=== PATIENT | female | born 1945 | race Caucasian/White ===

== ENCOUNTER → 2020-05-06 10:42 | Outpatient (BNVA) | payer OTHER, SELFPAY | PROVIDERS: PCP Internal Medicine; Referring Provider Internal Medicine; Visit Provider Nurse Practitioner Family | DX: Z76.89 Persons encountering health services in other specified circumstances (principal) ==

== ENCOUNTER → 2020-05-23 11:09 | Outpatient (REF) | payer OTHER, SELFPAY ==
--- NOTE | 2020-05-23 11:20 | CA_ITS ---
Transthoracic Echocardiogram Patient (Last, First, Middle): Annmarie Randhawa, Gender: Female Date of : 1945 Age: 74 Procedure Date: 05/23/2020 Procedure Type: Transthoracic Echocardiogram Location: OP Height: 154.94 cm Weight: 75.75 kg BSA: 1.75 m2 Heart Rate: bpm BP: 120 / 75 mmHg Veneer Patcher: AMBER Referring MD: Elenita Craft DEVELOPMENT MECHANICCuong Symptoms: R01.1 Cardiac murmur, l10 Essential hypertension Study Quality: Fair ECG Rhythm: Sinus Conclusions: - The left ventricular systolic function is normal. The visually estimated ejection fraction is between 60-65%. - There is mild septal asymmetric hypertrophy. - No obvious valvular pathology seen on this study. Findings Left Ventricle Normal left ventricular cavity size. The left ventricular systolic function is normal. The visually estimated ejection fraction is between 60-65%. There is no evidence of regional wall motion abnormalities. E/E prime ratio is between 8 and 15 consistent with indeterminate filling pressures. Evidence suggests grade I (mild) diastolic dysfunction. There is mild septal asymmetric hypertrophy. Right Ventricle Normal right ventricular cavity size and systolic function. Atria The left atrium is normal in size. The right atrium is normal in size. Aortic Valve There is a normal trileaflet aortic valve. There is mild calcification of the aortic valve. There is no aortic valve stenosis. There is trace (trivial) aortic valve regurgitation. Mitral Valve The mitral valve appears normal. There is trace mitral valve regurgitation. There is no mitral valve stenosis. Pulmonic Valve The pulmonic valve was not well visualized. Tricuspid Valve Normal tricuspid valve structure. There is mild tricuspid valve regurgitation. The pulmonary artery systolic pressure is normal. Great Vessels The aortic annulus, sinuses of valsalva, and asc aorta are normal in size. Venous The inferior vena cava is normal in size and collapses greater than 50% with inspiration. Pericardium/Pleural There is no evidence of pericardial effusion. Prior Study Comparison No significant change compared to prior study dated: 10/12/2018. Recommendations, Care & Conclusions No obvious valvular pathology seen on this study. Measurements 2D Linear Measurements IVSd: 1.04 0.6-0.9/0.6-1.0 cm LVIDd: 3.95 3.9-5.3/4.2-5.9 cm LVIDd Index: 1.47 2.4-3.2/2.2-3.1 cm/m2 LVIDs: 2.40 2.0-3.6 cm LVPWd: 0.98 0.7-1.1 cm Ao Root: 3.00 2.1-3.5 cm LA Diam: 2.70 2.7-3.8/3.0-4.0 cm LAIDs Index: 1.01 1.5-2.3 cm/m2 LV Mass: 156.97 67-162/88-224 g LV Mass Index: 58.57 43-95/49-115 g/m2 LVOT Diam: 2.10 3.0+(-)1.3 cm 2D Systolic Function EF 4C: 79.30 >55% Mitral Valve MV Pk E: 0.80 MV PK A: 0.65 MV Decel Time: 227.00 E/A: 1.20 E'Lateral: 8.05 E'Medial: 6.85 E/E' Med: 11.60 E/E' Lat: 9.90 PHT: 67.00 MVA PHT: 3.28 Decel Bamberg: 3.50 Aortic Valve AoV Pk Red: 1.55 AoV Pk Grad: 10.00 LVOT LVOT Pk Red: 1.54 LVOT Mn Red: 1.10 LVOT VTI: 0.34 LVOT Pk Grad: 9.00 LVOT Mn Grad: 5.00 LVOT Diam: 2.10 LVOT Area: 3.46 Diastolic Function MV Pk E: 0.80 MV Pk A: 0.65 E/A: 1.20 E'Medial: 6.85 E/E' Med: 11.60 E' Laterial: 8.05 E/E' Lat: 9.90 Tricuspid Valve TR Pk Red: 2.27 TR Pk Grad: 21.00 RA Press: 3.00 RVSP: 24.00 Great Vessels Aorta Ao Root-2D: 3.00 2.0-3.7 cm Ao Asc: 3.30 2.1-3.4 cm Ao Arch: 2.20 Updated in Other Vendor System with Status of Final Armani White MD electronically signed on 05/25/2020 10:53:09 AM with status of Final
== END ==
LOC: HO.CARD 11:09
PROVIDERS: PCP Internal Medicine; Visit Provider Nurse Practitioner Family
DX: R01.1 Cardiac murmur, unspecified (principal); I10 Essential (primary) hypertension; I25.10 Atherosclerotic heart disease of native coronary artery without angina pectoris
CPT/HCPCS: 93306

== ENCOUNTER → 2021-05-21 09:10 | Outpatient (BNVA) | payer OTHER, SELFPAY | PROVIDERS: PCP Internal Medicine; Referring Provider Internal Medicine; Visit Provider Internal Medicine Cardiovascular Disease ==

== ENCOUNTER → 2021-06-10 11:12 | Outpatient (REF) | payer OTHER, SELFPAY ==
--- NOTE | 2021-06-10 11:16 | HM_ITS ---
Conclusion: 1. Patient was monitored for total period of 12 days and 4 hours 2. Baseline rhythm was normal sinus rhythm with average heart of 76 beats per minute 3. No significant pauses or bradycardia noted 4. One 6 beat run of nonsustained VT noted 5. Twelve short runs of supraventricular ectopic consistent with SVT longest 12 beats 6. Total of 514 PACs accounting for 0.04% total burden account for rare PACs 7. Three total patient events 1 of which correlated with isolated PVC MTDD
== END ==
LOC: HO.CARD 11:12
PROVIDERS: Visit Provider Internal Medicine Cardiovascular Disease
DX: R00.2 Palpitations (principal)
CPT/HCPCS: 93246

== ENCOUNTER → 2021-09-25 10:45 | Outpatient (BNVA) | payer OTHER, SELFPAY | PROVIDERS: PCP Internal Medicine; Visit Provider Nurse Practitioner Family ==

== ENCOUNTER → 2022-05-28 12:43 | Outpatient (BNVA) | payer OTHER, SELFPAY | PROVIDERS: PCP Internal Medicine; Referring Provider Internal Medicine; Visit Provider Internal Medicine Cardiovascular Disease | DX: I25.10 Atherosclerotic heart disease of native coronary artery without angina pectoris (principal); I49.1 Atrial premature depolarization | CPT/HCPCS: 93005 ==

== ENCOUNTER → 2022-09-28 10:49 | Outpatient (BNVA) | payer OTHER, SELFPAY | PROVIDERS: PCP Internal Medicine; Visit Provider Nurse Practitioner Family | DX: Z13.89 Encounter for screening for other disorder (principal) ==

== ENCOUNTER 2023-03-29 14:22 | Outpatient (AMB) | payer OTHER, SELFPAY ==
--- NOTE | 2023-03-29 14:24 | A.OFFVIS_ITS ---
Intake Vital Signs 03/29/23 14:25 Height 5 ft Weight 165 lb BMI 32.2 BP 102/58 L Blood Pressure Location Rt brachial Position Sitting Pulse 81 Pulse Source Pulse Oximeter Pulse Oximetry (%) 98 Oxygen Delivery Method Room Air Intake Visit Reasons: 6m follow up movement disorder - Confirmed Intake Note: Patient presents for 6 month follow up. Patient states A lot more dizziness, about a month ago I started walking and fainted and fell on the floor, I'm having some shakiness on left hand and the right it's starting to do the same. Allergies Sulfa (Sulfonamide Antibiotics) Allergy (Unknown, Verified 09/28/22 11:08) vomiting sulfamethoxazole [From Bactrim] Allergy (Unknown, Verified 09/28/22 11:08) Unknown trimethoprim [From Bactrim] Allergy (Unknown, Verified 09/28/22 11:08) Unknown HPI HPI Comments History of Present Illness Details 77-yr-old female presents for f/u visit, pt is accompanied by her , Mari. Pt has been having more dizziness- an off-balance feeling especially triggered by a qucik turn/movement/position change. She had a fall- possibly passed out but fell r/t dizziness- early in the am. By the time the printer slotter feeder came she felt ok. She called her PCP, who suggested she was dehydrated, but pt does not think. Pt denies recent ear pain, headaches, fevers. Her left eye is more bothersome- has f/u appt w/ her service observer. Was having dry eyes- but eye gtts were helpful. Her sense of smell and taste is not great- has some . She has been noticing some swallowing difficulty when eating. Still has the LUE tremor. The right hand is now shaking some. She is noticing worsening left 3rd finger posturing and some lower leg spasms/cramps (forgets which leg). 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 Denies parasomnias. [facility] Medical History HLD (hyperlipidemia) HTN (hypertension) Murmur Nonobstructive atherosclerosis of coronary artery (~09/2017) Surgical History History of right hip replacement (~11/2019) Hx of cardiac cath Hx of eye surgery Hx of hysterectomy Hx of pelvic surgery Family History (Updated 03/29/23 @ 14:33 by MAGNOLIA Mcarthur) Father CVD (cardiovascular disease) Mother No problems noted. Family/Other CVD (cardiovascular disease) Afib Brother Tumor of tongue Social History Household Members: Spouse Housing: House Alcohol intake: former Patient Tobacco Use Status: Former Tobacco user Review of Systems Const All systems reviewed & are unremarkable except as noted in HPI and below Physical Exam Vital Signs: Last Vital Signs Pulse 81 03/29/23 14:25 BP 102/58 L 03/29/23 14:25 Pulse Ox 98 03/29/23 14:25 Oxygen Delivery Method Room Air 03/29/23 14:25 BMI result Body Mass Index 32.2 Const General: cooperative and no acute distress Resp Effort & Inspection: normal respiratory effort and able to speak in complete sentences Neuro Other: Mild dysconjucate gaze. Mild left lower facial droop- chronic BUE, L > R, postural tremor. Mild BUE tone. FFM- ok. Foot taps- ok Slightly slow to stand, decreased arm swing, short steps w/ narrow base.. General: patient oriented x3 Cognition (Neuro): normal cognition Motor exam (neuro): 5/5 motor strength present throughout Assessment & Plan Assessment & Plan (1) Tremor: Comment: assymetric L > R Code(s): R25.1 - Tremor, unspecified Plan Pt has had some mild progression of her movement s/s- including increased tremor, rigidity, ? postural instability. Offered DaTscan, however pt is not interested as she states s/s are not bothersome enough at this time. Advised to be careful with turns/quick movements, stand slowly. BP is mildly hypotensive- pt has PCP appt next week- ? pt would benefit from BP med adjustment to improve BP and lessen orthostatic lighheadedness. Symptoms are not significant enough at this point to to trial a dopamenergic agent. Continue to engage in regular cognitive, social, and physical activity. Mass eye and ear consult as scheduled. Coding Level of Care Code Est Pt Level 3 (97616) Diagnoses Tremor R25.1
[2023-03-29 14:25] VITALS: BP 102/58; PULSE 81; O2SAT 98; BMI 32.2
== END 2023-03-29 15:34 | disposition home or self-care (01) ==
PROVIDERS: Visit Provider Nurse Practitioner Family
DX: R25.1 Tremor, unspecified (principal)
CPT/HCPCS: 99213

== ENCOUNTER → 2023-03-29 14:22 | Outpatient (BNVA) | payer OTHER, SELFPAY | PROVIDERS: Visit Provider Nurse Practitioner Family ==

== ENCOUNTER 2023-04-30 09:05 | Outpatient (AMB) | payer OTHER, SELFPAY ==
[2023-04-30 09:08] VITALS: BP 120/62; PULSE 70; BMI 32.2
--- NOTE | 2023-04-30 09:08 | MHC.OFFVIS ---
Intake Vital Signs 04/30/23 09:08 Height 5 ft Weight 164 lb 14.492 oz BMI 32.2 BP 120/62 Blood Pressure Location Lt brachial Position Sitting Pulse 70 Pulse Source Pulse Oximeter Intake Visit Reasons: [facility] follow up/patient has records Intake Note: shakira f/u Training Specialist Required: No Clinical Safety Manager: Clinical Safety Manager Present Accompanied by: Spouse Allergies Sulfa (Sulfonamide Antibiotics) Allergy (Unknown, Verified 04/30/23 09:17) vomiting sulfamethoxazole [From Bactrim] Allergy (Unknown, Verified 04/30/23 09:17) Unknown trimethoprim [From Bactrim] Allergy (Unknown, Verified 04/30/23 09:17) Unknown Medication List - Last Reconciled 04/30/23 by JA Motta acetaminophen (Tylenol) 325 mg PO QID PRN amlodipine 2.5 mg PO DAILY ascorbate calcium (vitamin C) 500 mg PO DAILY aspirin (Adult Low Dose Aspirin) 81 mg PO DAILY atorvastatin 80 mg PO DAILY cholecalciferol (vitamin D3) (Vitamin D3) 50 mcg PO DAILY duloxetine 60 mg PO DAILY PRN hydrocodone-acetaminophen 10-325 mg 1 tab PO BID PRN levothyroxine 25 mcg PO DAILY losartan 50 mg PO DAILY vitamin B complex 1 tab PO DAILY vitamin E 670 mg PO DAILY HPI [facility] follow up/patient has records HPI Details Annmarie is a 77-year-old female with past medical history of hypertension, hyperlipidemia, nonobstructive coronary artery disease who recently had a syncopal event and now presents for follow-up. Today she states that a few days ago she had a syncopal event and woke up on the floor. She does not recall any feelings before or immediately after the event. Her is present today and he describes that she had been in bed, talking on the phone then he saw her sitting on the edge of the bed. She fell forward onto her face and was unconscious on the floor for approximately 5 minutes. He did call EMS and they arrived very quickly. Patient does recall waking up when there was a room full of people. She was taken to [facility] where she underwent a preliminary evaluation with no significant findings. Notes indicate that her blood pressure was on the lower side. She tells me that her PCP had just lowered her amlodipine dose the day before due to low blood pressures. She has been experiencing some mild lightheadedness. She describes having a syncopal event last May when she was standing in the kitchen and became lightheaded. No chest discomfort at rest or with activity. She does feel heart palpitations at times which are like a flutter in the chest. She does not recall having palpitations prior to either of these events. No concerning shortness of breath, PND, orthopnea or edema. She tells me she eats well and is well hydrated. She has not been sleeping well and has taking Unisom with affect. She is being evaluated still for possible Parkinson's disease. [facility] Medical History Murmur HLD (hyperlipidemia) HTN (hypertension) Nonobstructive atherosclerosis of coronary artery (~09/2017) Surgical History History of right hip replacement (~11/2019) Hx of pelvic surgery Hx of eye surgery Hx of hysterectomy Hx of cardiac cath Family History Father CVD (cardiovascular disease) Mother No problems noted. Family/Other CVD (cardiovascular disease) Afib Brother Tumor of tongue Social History Household Members: Spouse Housing: House Alcohol intake: former Patient Tobacco Use Status: Former Tobacco user Review of Systems Const All systems reviewed & are unremarkable except as noted in HPI and below ENT Details: Lightheadedness at times Denies dizziness Card Denies chest pain, Denies chest pain at rest, Denies chest pain with activity, Denies rapid heart rate, Denies pedal edema, Denies edema, Denies leg edema, Denies lightheadedness, Denies palpitations, Denies dyspnea, Denies dyspnea on exertion and Denies orthopnea Resp Denies cough, Denies dyspnea and Denies dyspnea on exertion GI Denies hematochezia and Denies change in stool character Musc Denies abnormal gait, Denies limited range of motion, Denies muscle cramps, Denies muscle weakness, Denies numbness, Denies radiating pain into limb, Denies stiffness and Denies tingling Neuro Denies abnormal gait, Denies dizziness, Denies numbness and Denies tingling Endo Denies palpitations Physical Exam Vital Signs: Last Vital Signs Pulse 70 04/30/23 09:08 BP 120/62 04/30/23 09:08 BMI result Body Mass Index 32.2 Const Other: Resolving ecchymosis along for head and beneath eyes General: cooperative, healthy appearing, comfortable and no acute distress Orientation/consciousness: patient oriented x3 Neck Neck: Yes normal visual inspection Resp Effort & Inspection: normal respiratory effort Auscultation: clear to auscultation bilaterally, no crackles, no rales, no rhonchi and no wheezes Cardio Jugular venous distension: no JVD Rate: regular rate Rhythm: regular rhythm Heart sounds: S1 normal heart sound present, S2 normal heart sound present and no rubs Skin General skin exam: no rashes or lesions noted Neuro General: patient oriented x3 Extrem General: Yes normal to inspection Psych Appearance: grossly normal Mental Status: mental status grossly normal Speech and movement: Normal speech and movement present Assessment & Plan Assessment & Plan (1) Syncope: Code(s): R55 - Syncope and collapse Qualifiers: Syncope type: unspecified Qualified Code(s): R55 - Syncope and collapse Plan: Patient reports to syncopal events, 1 last May and 1 this past week. The 1st one occurred when she was standing in the kitchen and became lightheaded and syncopized. The 2nd event occurred on 04/27/2023 when she was sitting on the edge of the bed and fell forward, on to floor. witnessed event and she was unconscious for approximately 5 minutes. No incontinence, no abnormal body motions. Patient was breathing normally. Blood pressure has been running on the lower side according to patient. Her PCP had lowered her amlodipine dose the day before. [facility] records reviewed and showed no acute findings. She was not orthostatic on their exam. EKG showed sinus rhythm with no acute ST or T-wave abnormalities. She did have facial ecchymosis and head CT showed no acute abnormalities. She has not had any recurrent events since that time. She did reduce her amlodipine as ordered. Her blood pressure is normal range today. She is being worked up for possible diagnosis of Parkinson's. With Parkinson's she may have some dysautonomia. Discuss this with her. Suggested compression stocking use, maintain good hydration, use much caution when going sitting to standing. She has felt some heart palpitations including fluttering however not at the time of her events. Will check a Holter monitor to evaluate for arrhythmia, AFib. Will check an echocardiogram to assess for any structural heart disease. Last echocardiogram 05/23/2020 showed EF 60-65%, mild septal hypertrophy. Will check a carotid ultrasound to evaluate for any stenosis. Cardiology follow-up in 2 months, sooner if need (2) Palpitations: Code(s): R00.2 - Palpitations (3) Nonobstructive atherosclerosis of coronary artery: Onset Date: ~09/2017 Comment: Prior calcium score over 1000. Cardiac catheterization done 09/22/2017 showing only mild luminal irregularities left main, left circumflex, lad and RCA. Reports of anginal sounding symptoms. Had recent total hip replacement without reported cardiac complications. EKG done 04/11/2020 showing normal sinus rhythm, lateral infarct, age undetermined, unchanged from prior EKG, rate 67. Code(s): I25.10 - Atherosclerotic heart disease of [place] coronary artery without angina pectoris Plan: No reports of anginal sounding symptoms. Cardiac testing as above. Continue aspirin, high-dose atorvastatin, losartan and amlodipine (4) HTN (hypertension): Comment: well controlled at this time Code(s): I10 - Essential (primary) hypertension Qualifiers: Hypertension type: primary hypertension Qualified Code(s): I10 - Essential (primary) hypertension Plan: Good at present, no med changes made (5) Murmur: Comment: Faint systolic murmur on exam. Patient reports longstanding. Notes from [facility] states that she has diagnosis of [id number] aortic stenosis however she states that echocardiogram was not completed there. Our prior notes as well indicate aortic stenosis. Echocardiogram done 10/12/2018 shows EF 60-65%, no aortic stenosis and no aortic regurgitation. Code(s): R01.1 - Cardiac murmur, unspecified Plan: Updating echo Orders: Orders ECG 3 day holter monitor Today R00.2 - Palpitations, R55 - Syncope and collapse CA echo transthoracic complete Today I25.10 - Atherosclerotic heart disease of [place] coronary artery without angina pectoris, R55 - Syncope and collapse US carotid duplex BI Today R09.89 - Other specified symptoms and signs involving the circulatory and respiratory systems, R55 - Syncope and collapse Coding Level of Care Code Est Pt Level 4 (70196) Diagnoses Syncope, unspecified syncope type R55 Syncope type: unspecified Palpitations R00.2 Nonobstructive atherosclerosis of coronary artery I25.10 Primary hypertension I10 Hypertension type: primary hypertension Murmur R01.1 Time Spent (min) 28
== END 2023-04-30 09:52 | disposition home or self-care (01) ==
PROVIDERS: PCP Internal Medicine; Visit Provider Nurse Practitioner Family
DX: R55 Syncope and collapse (principal); R00.2 Palpitations; I25.10 Atherosclerotic heart disease of native coronary artery without angina pectoris; I10 Essential (primary) hypertension; R01.1 Cardiac murmur, unspecified
CPT/HCPCS: 99214

== ENCOUNTER → 2023-04-30 09:05 | Outpatient (BNVA) | payer OTHER, SELFPAY | PROVIDERS: PCP Internal Medicine; Visit Provider Nurse Practitioner Family ==

== ENCOUNTER 2023-05-07 10:08 | Outpatient (REF) | payer OTHER, SELFPAY | END 2023-05-07 10:09 | disposition home or self-care (01) | LOC: HO.US 10:08 | PROVIDERS: PCP Internal Medicine; Visit Provider Nurse Practitioner Family | DX: R09.89 Other specified symptoms and signs involving the circulatory and respiratory systems (principal); R55 Syncope and collapse | CPT/HCPCS: 93880 ==

== ENCOUNTER → 2023-05-31 12:38 | Outpatient (REF) | payer OTHER, SELFPAY ==
--- NOTE | 2023-05-31 12:42 | HM_ITS ---
* Total monitoring time 3 days. * Underlying rhythm is sinus with an average rate of 68/Min. Range 49 to 129/Min. * Rare supraventricular and ventricular ectopy. * No sustained arrhythmias. * No significant pauses or AV blocks. * No patient markers or events in diary. MTDD
--- NOTE | 2023-05-31 12:42 | CA_ITS ---
Transthoracic Echocardiogram Patient (Last, First, Middle): Annmarie Randhawa, Gender: Female Date of : 1945 Age: 77 Procedure Date: 05/31/2023 Procedure Type: Transthoracic Echocardiogram Location: OP Height: 157.48 cm Weight: 73.94 kg BSA: 1.75 m2 Heart Rate: bpm BP: 118 / 66 mmHg Continuity Clerk: IRASEMA Referring MD: Elenita Craft SPD MANAGERCuong Symptoms: R55 - Syncope and collapse Study Quality: Fair w Contrast ECG Rhythm: Sinus Conclusions: - The left ventricular systolic function is normal. The visually estimated ejection fraction is between 60-65%. - There is mild septal and mild basal asymmetric hypertrophy. - No obvious valvular pathology seen on this study. Findings Procedure Information Contrast agent, definity, is being given per protocol without apparent complications. Left Ventricle Normal left ventricular cavity size. The left ventricular systolic function is normal. The visually estimated ejection fraction is between 60-65%. There is no evidence of regional wall motion abnormalities. Evidence suggests grade I (mild) diastolic dysfunction. There is mild septal and mild basal asymmetric hypertrophy. Right Ventricle Normal right ventricular cavity size and systolic function. Atria Both atria are normal in size. Aortic Valve The aortic valve was not well visualized. There is no aortic valve stenosis. There is no aortic valve regurgitation. Mitral Valve The mitral valve appears normal. There is trace mitral valve regurgitation. There is no mitral valve stenosis. Pulmonic Valve The pulmonic valve is likely normal. Tricuspid Valve There is mild tricuspid valve regurgitation. There is no evidence of pulmonary hypertension. Great Vessels The asc aorta is normal in size. Venous The inferior vena cava is normal in size and collapses greater than 50% with inspiration. Pericardium/Pleural There is no evidence of pericardial effusion. Prior Study Comparison No significant change compared to prior study dated: 05/23/2020. Recommendations, Care & Conclusions No obvious valvular pathology seen on this study. Measurements 2D Linear Measurements IVSd: 1.25 0.6-0.9/0.6-1.0 cm LVIDd: 3.30 3.9-5.3/4.2-5.9 cm LVIDd Index: 1.89 2.4-3.2/2.2-3.1 cm/m2 LVIDs: 2.14 2.0-3.6 cm LVPWd: 1.25 0.7-1.1 cm Ao Root: 3.20 2.1-3.5 cm LA Diam: 3.00 2.7-3.8/3.0-4.0 cm LAIDs Index: 1.71 1.5-2.3 cm/m2 LV Mass: 165.54 67-162/88-224 g LV Mass Index: 94.60 43-95/49-115 g/m2 LVOT Diam: 2.10 3.0+(-)1.3 cm 2D Systolic Function EF 4C: 70.30 >55% EF 2C: 62.70 >55% EF BiP: 67.40 >55% Mitral Valve MV Pk E: 0.70 MV PK A: 0.78 MV Decel Time: 239.00 E/A: 0.90 E'Lateral: 5.66 E'Medial: 4.03 E/E' Med: 17.30 E/E' Lat: 12.30 PHT: 70.00 MVA PHT: 3.14 Decel Bucks: 2.92 Aortic Valve AoV Pk Red: 1.44 AoV Mn Red: 1.06 AoV VTI: 0.35 AoV Pk Grad: 8.00 Aov Mn Grad: 5.00 ABEL Cont.VTI: 3.05 LVOT LVOT Pk Red: 1.29 LVOT Mn Red: 0.96 LVOT VTI: 0.31 LVOT Pk Grad: 7.00 LVOT Mn Grad: 4.00 LVOT Diam: 2.10 LVOT Area: 3.46 Diastolic Function MV Pk E: 0.70 MV Pk A: 0.78 E/A: 0.90 E'Medial: 4.03 E/E' Med: 17.30 E' Laterial: 5.66 E/E' Lat: 12.30 Right Ventricle TAPSE (mm): 24.00 TVS' Red: 11.00 Tricuspid Valve TR Pk Red: 2.19 TR Pk Grad: 19.00 RA Press: 3.00 RVSP: 22.00 Great Vessels Aorta Ao Root-2D: 3.20 2.0-3.7 cm Ao Asc: 3.30 2.1-3.4 cm Pulmonary Valve PV Pk Red: 0.84 Peak PV Grad: 3.00 Updated in Other Vendor System with Status of Final Armani White MD electronically signed on 05/31/2023 4:15:07 PM with status of Final
== END ==
LOC: HO.CARD 12:38
PROVIDERS: PCP Internal Medicine; Visit Provider Nurse Practitioner Family
DX: R55 Syncope and collapse (principal); R00.2 Palpitations
CPT/HCPCS: 93242; 93306; Q9957

== ENCOUNTER → 2023-05-31 12:42 | Outpatient (BNV) | payer OTHER, SELFPAY | PROVIDERS: PCP Internal Medicine; Visit Provider Internal Medicine | DX: I47.10 Supraventricular tachycardia, unspecified (principal) | CPT/HCPCS: 93244; 93306 ==

== ENCOUNTER 2023-06-29 14:58 | Outpatient (AMB) | payer OTHER, SELFPAY ==
--- NOTE | 2023-06-29 15:39 | A.OFFVIS_ITS ---
Intake Vital Signs 06/29/23 15:40 Height 5 ft Weight 162 lb 4.163 oz BMI 31.7 BP 114/60 Blood Pressure Location Lt brachial Position Sitting Pulse 60 Pulse Source Pulse Oximeter Intake Visit Reasons: 2 month follow up Lining Finisher Required: No Allergies Sulfa (Sulfonamide Antibiotics) Allergy (Unknown, Verified 06/29/23 15:43) vomiting sulfamethoxazole [From Bactrim] Allergy (Unknown, Verified 06/29/23 15:43) Unknown trimethoprim [From Bactrim] Allergy (Unknown, Verified 06/29/23 15:43) Unknown Medication List - Last Reconciled 06/29/23 by Elenita Craft NP-C acetaminophen (Tylenol) 325 mg PO QID PRN amlodipine 2.5 mg PO DAILY ascorbate calcium (vitamin C) 500 mg PO DAILY aspirin (Adult Low Dose Aspirin) 81 mg PO DAILY atorvastatin 80 mg PO DAILY cholecalciferol (vitamin D3) (Vitamin D3) 50 mcg PO DAILY duloxetine 60 mg PO DAILY PRN hydrocodone-acetaminophen 10-325 mg 1 tab PO BID PRN levothyroxine 25 mcg PO DAILY losartan 25 mg PO DAILY vitamin B complex 1 tab PO DAILY vitamin E 670 mg PO DAILY HPI 2 month follow up HPI Details Annmarie is a 77-year-old female with past medical history of hypertension, hyperlipidemia, nonobstructive coronary artery disease who recently had a syncopal event and now presents for follow-up after recent testing. Today she reports that she has not had any recurrent syncopal events. She tells me that her amlodipine had been reduced and she feels much better since that time. She has her rare feeling of lightheadedness with position change. No presyncope, syncope, falls. No chest discomfort at rest or with activity. No heart palpitations, shortness of breath, PND, orthopnea or edema. She still being evaluated for possible Parkinson's disease verses MS. She is following with doctors in [place]. She ambulates with a cane. is present. [facility], LAT[facility] Medical History Murmur HLD (hyperlipidemia) HTN (hypertension) Nonobstructive atherosclerosis of coronary artery (~09/2017) Surgical History History of right hip replacement (~11/2019) Hx of pelvic surgery Hx of eye surgery Hx of hysterectomy Hx of cardiac cath Family History Father CVD (cardiovascular disease) Mother No problems noted. Family/Other CVD (cardiovascular disease) Afib Brother Tumor of tongue Social History Household Members: Spouse Housing: House Alcohol intake: former Patient Tobacco Use Status: Former Tobacco user Review of Systems Const All systems reviewed & are unremarkable except as noted in HPI and below ENT Denies dizziness Card Denies chest pain, Denies chest pain at rest, Denies chest pain with activity, Denies rapid heart rate, Denies pedal edema, Denies edema, Denies leg edema, Denies lightheadedness, Denies palpitations, Denies dyspnea, Denies dyspnea on exertion and Denies orthopnea Resp Denies cough, Denies dyspnea and Denies dyspnea on exertion GI Denies hematochezia and Denies change in stool character Musc Denies abnormal gait, Denies limited range of motion, Denies muscle cramps, Denies muscle weakness, Denies numbness, Denies radiating pain into limb, Denies stiffness and Denies tingling Neuro Denies abnormal gait, Denies dizziness, Denies numbness and Denies tingling Endo Denies palpitations Physical Exam Vital Signs: Last Vital Signs Pulse 60 06/29/23 15:40 BP 114/60 06/29/23 15:40 BMI result Body Mass Index 31.7 Const Other: Ambulates with cane General: cooperative, healthy appearing, comfortable and no acute distress Orientation/consciousness: patient oriented x3 Neck Neck: Yes normal visual inspection Resp Effort & Inspection: normal respiratory effort Auscultation: clear to auscultation bilaterally, no crackles, no rales, no rhonchi and no wheezes Cardio Jugular venous distension: no JVD Rate: regular rate Rhythm: regular rhythm Heart sounds: S1 normal heart sound present, S2 normal heart sound present, no murmurs and no rubs Neuro General: patient oriented x3 Extrem General: Yes normal to inspection, No no pedal edema and No calf tenderness Psych Appearance: grossly normal Mental Status: mental status grossly normal Speech and movement: Normal speech and movement present Assessment & Plan Assessment & Plan (1) Syncope: Code(s): R55 - Syncope and collapse Qualifiers: Syncope type: unspecified Qualified Code(s): R55 - Syncope and collapse Plan: Patient reports to syncopal events, 1 last May and 1 this past week. The 1st one occurred when she was standing in the kitchen and became lightheaded and syncopized. The 2nd event occurred on 04/27/2023 when she was sitting on the edge of the bed and fell forward, on to floor. witnessed event and she was unconscious for approximately 5 minutes. No incontinence, no abnormal body motions. Patient was breathing normally. Blood pressure has been running on the lower side according to patient. Her PCP had lowered her amlodipine dose the day prior to her syncope. [facility] records reviewed and showed no acute findings. She was not orthostatic on their exam. EKG showed sinus rhythm with no acute ST or T-wave abnormalities. She did have facial ecchymosis and head CT showed no acute abnormalities. She has not had any recurrent events since that time. On last visit cardiac testing was ordered. She underwent a Holter monitor on 05/31/2023 for 3 days showing sinus rhythm with average heart rate 68, rare ectopy. Echocardiogram done 05/31/2023 showed EF 60-65%, mild septal and basal asymmetric hypertrophy. Carotid ultrasound done 05/07/2023 showed right and left ICA 0-49% stenosis. Reviewed all test results with her in detail. Blood pressure normal range today. She reports feeling much better overall following the reduction of her amlodipine dose. Informed her that if she has recurrent lightheadedness then amlodipine can then me discontinued. She has a home blood pressure cuff and she will check her blood pressure periodically if she stops amlodipine. Continue losartan. No med changes made today. She is still being worked up for possible diagnosis of Parkinson's verses multiple sclerosis. With Parkinson's she may have some dysautonomia. Discuss this with her. Suggested compression stocking use, maintain good hydration, use much caution when going sitting to standing. Cardiology follow- up 6 months, sooner if needed, her request. (2) Nonobstructive atherosclerosis of coronary artery: Onset Date: ~09/2017 Comment: Prior calcium score over 1000. Cardiac catheterization done 09/22/2017 showing only mild luminal irregularities left main, left circumflex, lad and RCA. Reports of anginal sounding symptoms. Had recent total hip replacement without reported cardiac complications. EKG done 04/11/2020 showing normal sinus rhythm, lateral infarct, age undetermined, unchanged from prior EKG, rate 67. Code(s): I25.10 - Atherosclerotic heart disease of [place] coronary artery without angina pectoris Plan: No reports of anginal sounding symptoms. Cardiac testing as above. Continue aspirin, high-dose atorvastatin, losartan and amlodipine (3) HTN (hypertension): Comment: well controlled at this time Code(s): I10 - Essential (primary) hypertension Qualifiers: Hypertension type: primary hypertension Qualified Code(s): I10 - Essential (primary) hypertension Plan: Good at present, no med changes made (4) Murmur: Comment: Faint systolic murmur on exam. Patient reports longstanding. Notes from [facility] states that she has diagnosis of [id number] aortic stenosis however she states that echocardiogram was not completed there. Our prior notes as well indicate aortic stenosis. Echocardiogram done 10/12/2018 shows EF 60-65%, no aortic stenosis and no aortic regurgitation. Code(s): R01.1 - Cardiac murmur, unspecified Plan: Echocardiogram recently done showing only trace MR, mild TR. Coding Level of Care Code Est Pt Level 4 (91205) Diagnoses Syncope, unspecified syncope type R55 Syncope type: unspecified Nonobstructive atherosclerosis of coronary artery I25.10 Primary hypertension I10 Hypertension type: primary hypertension Murmur R01.1 Time Spent (min) 28
[2023-06-29 15:40] VITALS: BP 114/60; PULSE 60; BMI 31.7
== END 2023-06-29 16:18 | disposition home or self-care (01) ==
PROVIDERS: PCP Internal Medicine; Visit Provider Nurse Practitioner Family
DX: R55 Syncope and collapse (principal); I25.10 Atherosclerotic heart disease of native coronary artery without angina pectoris; I10 Essential (primary) hypertension; R01.1 Cardiac murmur, unspecified
CPT/HCPCS: 99214

== ENCOUNTER → 2023-06-29 14:58 | Outpatient (BNVA) | payer OTHER, SELFPAY | PROVIDERS: PCP Internal Medicine; Visit Provider Nurse Practitioner Family ==

== ENCOUNTER 2023-12-13 15:52 | Outpatient (REF) | payer OTHER, SELFPAY ==
--- NOTE | ~2023-12-13 | XR_ITS ---
EXAMINATION: XR CHEST CLINICAL INFORMATION: Presence of cardiac pacer, check lead placement. COMPARISON: None available. TECHNIQUE: 2 views of the chest were obtained. FINDINGS: There is no gross pneumothorax. Left shoulder prosthesis partially imaged. Left subclavian approach pacer present with leads projecting over expected locations of right atrium and right ventricle. Convex retrocardiac opacity could be related to aorta versus other retrocardiac mass. CT scan of the chest recommended for further evaluation. No pleural effusion. No focal consolidation to suggest pneumonia. Multilevel degenerative changes in the thoracic spine. XR/XR chest 2V IMPRESSION: Convex retrocardiac opacity could be related to aorta versus other retrocardiac mass. CT scan of the chest recommended for further evaluation. This study was presented today December 22, 2023 for interpretation. PSA staff will provide results to referring provider at this time.
== END 2023-12-13 15:53 | disposition home or self-care (01) ==
LOC: HO.XRAY 15:52
PROVIDERS: PCP Internal Medicine; Visit Provider Nurse Practitioner Family
DX: Z95.0 Presence of cardiac pacemaker (principal)
CPT/HCPCS: 71046; 93280

== ENCOUNTER 2023-12-13 15:52 | Outpatient (AMB) | payer OTHER, SELFPAY ==
--- NOTE | 2023-12-14 08:47 | MHC.OFFVIS ---
Intake Visit Reasons: Medtronic check Allergies Sulfa (Sulfonamide Antibiotics) Allergy (Unknown, Verified 06/29/23 15:43) vomiting sulfamethoxazole [From Bactrim] Allergy (Unknown, Verified 06/29/23 15:43) Unknown trimethoprim [From Bactrim] Allergy (Unknown, Verified 06/29/23 15:43) Unknown PFSH Medical History Murmur HLD (hyperlipidemia) HTN (hypertension) Nonobstructive atherosclerosis of coronary artery (~09/2017) Surgical History History of right hip replacement (~11/2019) Hx of pelvic surgery Hx of eye surgery Hx of hysterectomy Hx of cardiac cath Family History Father CVD (cardiovascular disease) Mother No problems noted. Family/Other CVD (cardiovascular disease) Afib Brother Tumor of tongue Social History Household Members: Spouse Housing: House Alcohol intake: former Patient Tobacco Use Status: Former Tobacco user Office Procedures Cardiac Device Check Cardiac Device Check Details: Medtronic dual-chamber pacemaker interrogation today shows battery 13.9 years, AAI to DDD mode, low rate 60, atrial threshold 1.75 volts at 0.4 milliseconds, RV threshold 0.75 volts at 0.4 milliseconds, alert for high atrial thresholds, no 80 AF, no high V rates. Patient sent for chest x-ray for lead placement evaluation [id number] Cardiac Device Check, pacemaker dual lead Procedure code (CPT) selection complete Assessment & Plan Assessment & Plan (1) Pacemaker: Code(s): Z95.0 - Presence of cardiac pacemaker Category: Medical Plan: Atrial threshold reading high. Brought in for device check confirming high atrial threshold compared to insertion values. Coding Level of Care Code Procedure Only Diagnoses Pacemaker Z95.0 CPT Codes Cardiac Device Check - Cardiac Device 2: [id number] Cardiac Device Check, pacemaker dual lead ([id number])
== END 2023-12-13 17:01 | disposition home or self-care (01) ==
LOC: HO.HCS 15:52
PROVIDERS: PCP Internal Medicine; Visit Provider Nurse Practitioner Family
DX: Z45.018 Encounter for adjustment and management of other part of cardiac pacemaker (principal)
CPT/HCPCS: 93280

== ENCOUNTER 2023-12-21 15:04 | Outpatient (AMB) | payer OTHER, SELFPAY ==
[2023-12-21 15:07] VITALS: BP 120/76; PULSE 72; BMI 29.7
--- NOTE | 2023-12-21 15:07 | MHC.OFFVIS ---
Vital Signs 12/21/23 15:07 Height 5 ft Weight 152 lb 1.903 oz BMI 29.7 BP 120/76 Blood Pressure Location Lt brachial Position Sitting Pulse 72 Intake Visit Reasons: 6 mth f/up Intake Note: 6 month follow-up with medtonic c/o fatigue General Duty Nurse Required: No Turkish Rubber: Turkish Rubber Present Accompanied by: Spouse Allergies Sulfa (Sulfonamide Antibiotics) Allergy (Unknown, Verified 06/29/23 15:43) vomiting sulfamethoxazole [From Bactrim] Allergy (Unknown, Verified 06/29/23 15:43) Unknown trimethoprim [From Bactrim] Allergy (Unknown, Verified 06/29/23 15:43) Unknown Medication List - Last Reconciled 12/21/23 by Chato Chavez MD acetaminophen (Tylenol) 325 mg PO QID PRN amlodipine 2.5 mg PO DAILY ascorbate calcium (vitamin C) 500 mg PO DAILY aspirin (Adult Low Dose Aspirin) 81 mg PO DAILY atorvastatin 80 mg PO DAILY cholecalciferol (vitamin D3) (Vitamin D3) 50 mcg PO DAILY duloxetine 60 mg PO DAILY PRN hydrocodone-acetaminophen 10-325 mg 1 tab PO BID PRN levothyroxine 25 mcg PO DAILY losartan 25 mg PO DAILY vitamin B complex 1 tab PO DAILY vitamin E 670 mg PO DAILY HPI Comments Details: Annmarie comes for follow-up after pacemaker placement and concern for atrial lead. Pacemaker was implanted on urgent basis as patient had multiple episodes of syncope in the recent past in the past few months and subsequent Holter monitor showed markedly prolonged pause that led to her being advised to go to the emergency room by your office and subsequently undergoing a dual-chamber pacemaker. After a week we got an alert about atrial lead and we had it checked last week in the office and this did suggest slightly elevated thresholds although they were stable with stable lead impedance. Chest x-ray was done which showed stable lead positions. She comes today. Has had no recurrent syncopal episodes. She denies any exertional chest pain. No recurrent syncopal episodes. Taking all her medications regularly. She complains of swelling at the pacemaker site. [facility] Medical History Murmur HLD (hyperlipidemia) HTN (hypertension) Nonobstructive atherosclerosis of coronary artery (~09/2017) Surgical History History of right hip replacement (~11/2019) Hx of pelvic surgery Hx of eye surgery Hx of hysterectomy Hx of cardiac cath Family History Father CVD (cardiovascular disease) Mother No problems noted. Family/Other CVD (cardiovascular disease) Afib Brother Tumor of tongue Social History Household Members: Spouse Housing: House Alcohol intake: former Patient Tobacco Use Status: Former Tobacco user Review of Systems Const Denies chills, Denies fatigue, Denies fever(s), Denies frequent falls, Denies weakness, Denies weight gain and Denies weight loss ENT Denies dizziness Card Denies chest pain, Denies leg edema, Denies lightheadedness, Denies palpitations, Denies dyspnea, Denies dyspnea on exertion, Denies orthopnea and Denies other (loss of consciousness) Resp Denies cough, Denies dyspnea and Denies dyspnea on exertion GI Denies hematochezia and Denies change in stool character Musc Denies abnormal gait, Denies muscle weakness, Denies numbness, Denies radiating pain into limb and Denies tingling Neuro Denies abnormal gait, Denies dizziness, Denies frequent falls, Denies numbness, Denies tingling and Denies weakness Endo Denies fatigue and Denies palpitations Physical Exam Vital Signs: Last Vital Signs Pulse 72 12/21/23 15:07 BP 120/76 12/21/23 15:07 BMI result Body Mass Index 29.7 Const Other: Ambulates with cane General: cooperative, healthy appearing, comfortable and no acute distress Orientation/consciousness: patient oriented x3 Neck Neck: Yes normal visual inspection Chest Chest palpation & inspection: other (Pacemaker pocket has slight swelling with the wound healing well) Resp Effort & Inspection: normal respiratory effort Auscultation: clear to auscultation bilaterally, no crackles, no rales, no rhonchi and no wheezes Cardio Jugular venous distension: no JVD Rate: regular rate Rhythm: regular rhythm Heart sounds: S1 normal heart sound present, S2 normal heart sound present, no murmurs and no rubs Neuro General: patient oriented x3 Extrem General: Yes normal to inspection, No no pedal edema and No calf tenderness Psych Appearance: grossly normal Mental Status: mental status grossly normal Speech and movement: Normal speech and movement present Office Procedures Cardiac Device Check Cardiac Device Check Details: Dual-chamber Medtronic pacemaker in place. Programmed in DDD, reprogrammed to DDDR. Atrial pacing thresholds look improved compared to last week. Ventricular pacing thresholds are stable. Atrial ventricular lead impedance is stable. Battery life is excellent. [id number] Cardiac Device Check, pacemaker dual lead Procedure code (CPT) selection complete Assessment & Plan Assessment & Plan (1) Pacemaker: Code(s): Z95.0 - Presence of cardiac pacemaker Category: Medical Plan: Patient with dual-chamber cardiac pacemaker for syncope and significant sinus pauses consistent with sinoatrial holladn dysfunction, working well. Pacing in the atrium 23% of time. Atrial pacing thresholds have improved. Chest x-ray appears to be benign. Pacemaker was not readjusted for chronic thresholds as it is still fresh. We discussed about not moving her left arm over the head to continue to maintain atrial lead position. Nature of pacemaker in the function of pacemaker was discussed in details with her and her significant other. (2) HTN (hypertension): Comment: well controlled at this time Code(s): I10 - Essential (primary) hypertension Category: Medical Qualifiers: Hypertension type: primary hypertension Qualified Code(s): I10 - Essential (primary) hypertension Plan: Hypertension which is currently well optimized advised to continue current therapy. Importance of good blood pressure control was discussed. Low-salt diet was discussed. Encouraged to participate in physical activity as tolerated. (3) Nonobstructive atherosclerosis of coronary artery: Onset Date: ~09/2017 Comment: Prior calcium score over 1000. Cardiac catheterization done 09/22/2017 showing only mild luminal irregularities left main, left circumflex, lad and RCA. Reports of anginal sounding symptoms. Had recent total hip replacement without reported cardiac complications. EKG done 04/11/2020 showing normal sinus rhythm, lateral infarct, age undetermined, unchanged from prior EKG, rate 67. Code(s): I25.10 - Atherosclerotic heart disease of [place] coronary artery without angina pectoris Category: Medical Plan: Prior CAD without any significant worsening symptoms of ischemia. Continue low-dose aspirin therapy. Continue high-intensity statin therapy. Target goal LDL less than 70 mg/dL. Blood pressure is well optimized at this point time on current therapy. Advised to increase activity level as tolerated. Will follow up in the clinic in 3 weeks time for complete pacer reprogramming. Thank you for allowing me to partake in her care Coding Level of Care Code Est Pt Level 4 (39681) Diagnoses Pacemaker Z95.0 Primary hypertension I10 Hypertension type: primary hypertension Nonobstructive atherosclerosis of coronary artery I25.10 CPT Codes Cardiac Device Check - Cardiac Device 2: [id number] Cardiac Device Check, pacemaker dual lead ([id number])
== END 2023-12-21 15:49 | disposition home or self-care (01) ==
PROVIDERS: PCP Internal Medicine; Visit Provider Internal Medicine Cardiovascular Disease
DX: I10 Essential (primary) hypertension (principal); I25.10 Atherosclerotic heart disease of native coronary artery without angina pectoris; Z95.0 Presence of cardiac pacemaker
CPT/HCPCS: 93280; 99214

== ENCOUNTER → 2023-12-21 15:04 | Outpatient (BNVA) | payer OTHER, SELFPAY | PROVIDERS: PCP Internal Medicine; Visit Provider Internal Medicine Cardiovascular Disease | DX: I10 Essential (primary) hypertension (principal); I25.10 Atherosclerotic heart disease of native coronary artery without angina pectoris; Z45.018 Encounter for adjustment and management of other part of cardiac pacemaker; Z79.82 Long term (current) use of aspirin; Z79.899 Other long term (current) drug therapy | CPT/HCPCS: 93280 ==

== ENCOUNTER → 2023-12-30 23:59 | Outpatient (BNV) | payer OTHER, SELFPAY ==
--- NOTE | 2024-01-04 13:48 | MHC.OFFVIS ---
Intake Visit Reasons: Remote device - Medtronic Allergies Sulfa (Sulfonamide Antibiotics) Allergy (Unknown, Verified 06/29/23 15:43) vomiting sulfamethoxazole [From Bactrim] Allergy (Unknown, Verified 06/29/23 15:43) Unknown trimethoprim [From Bactrim] Allergy (Unknown, Verified 06/29/23 15:43) Unknown PFSH Medical History Murmur HLD (hyperlipidemia) HTN (hypertension) Nonobstructive atherosclerosis of coronary artery (~09/2017) Surgical History History of right hip replacement (~11/2019) Hx of pelvic surgery Hx of eye surgery Hx of hysterectomy Hx of cardiac cath Family History Father CVD (cardiovascular disease) Mother No problems noted. Family/Other CVD (cardiovascular disease) Afib Brother Tumor of tongue Social History Household Members: Spouse Housing: House Alcohol intake: former Patient Tobacco Use Status: Former Tobacco user Office Procedures Cardiac Device Check Cardiac Device Check Details: Remote pacemaker report generated 12/30/2023. Pacemaker function is adequate [id number] Cardiac Device Interrogation, pacemaker Procedure code (CPT) selection complete Assessment & Plan Assessment & Plan (1) Pacemaker: Code(s): Z95.0 - Presence of cardiac pacemaker Category: Medical Plan: See above Coding Level of Care Code Procedure Only Diagnoses Pacemaker Z95.0 CPT Codes Cardiac Device Check - Cardiac Device 12: [id number] Cardiac Device Interrogation, pacemaker ([id number])
== END ==
PROVIDERS: PCP Internal Medicine; Visit Provider Internal Medicine Cardiovascular Disease
DX: Z45.018 Encounter for adjustment and management of other part of cardiac pacemaker (principal)
CPT/HCPCS: 93294

== ENCOUNTER 2024-01-18 14:36 | Outpatient (AMB) | payer OTHER, SELFPAY ==
[2024-01-18 15:03] VITALS: BP 116/68; PULSE 66; BMI 25.4
--- NOTE | 2024-01-18 15:03 | MHC.OFFVIS ---
Vital Signs 01/18/24 15:03 Height 5 ft Weight 130 lb 1.164 oz BMI 25.4 BP 116/68 Blood Pressure Location Lt brachial Position Sitting Pulse 66 Intake Visit Reasons: 3 wk medtronic ck Intake Note: Follow-up Medtronic feeling good Infrastructure Security Architect Required: No Allergies Sulfa (Sulfonamide Antibiotics) Allergy (Unknown, Verified 06/29/23 15:43) vomiting sulfamethoxazole [From Bactrim] Allergy (Unknown, Verified 06/29/23 15:43) Unknown trimethoprim [From Bactrim] Allergy (Unknown, Verified 06/29/23 15:43) Unknown HPI Comments Details: Annmarie comes for follow-up of her pacemaker check in 3 weeks. She has had no syncopal episode. Mostly complains of orthopedic issues and pain related to it. Denies any chest pain. No shortness of breath, orthopnea, PND. Scheduled to undergo CT for aorta [facility] Medical History Murmur HLD (hyperlipidemia) HTN (hypertension) Nonobstructive atherosclerosis of coronary artery (~09/2017) Surgical History History of right hip replacement (~11/2019) Hx of pelvic surgery Hx of eye surgery Hx of hysterectomy Hx of cardiac cath Family History Father CVD (cardiovascular disease) Mother No problems noted. Family/Other CVD (cardiovascular disease) Afib Brother Tumor of tongue Social History Household Members: Spouse Housing: House Alcohol intake: former Patient Tobacco Use Status: Former Tobacco user Review of Systems Const Denies chills, Denies fatigue, Denies fever(s), Denies frequent falls, Denies weakness, Denies weight gain and Denies weight loss ENT Denies dizziness Card Denies chest pain, Denies leg edema, Denies lightheadedness, Denies palpitations, Denies dyspnea, Denies dyspnea on exertion, Denies orthopnea and Denies other (loss of consciousness) Resp Denies cough, Denies dyspnea and Denies dyspnea on exertion GI Denies hematochezia and Denies change in stool character Musc Denies abnormal gait, Denies muscle weakness, Denies numbness, Denies radiating pain into limb and Denies tingling Neuro Denies abnormal gait, Denies dizziness, Denies frequent falls, Denies numbness, Denies tingling and Denies weakness Endo Denies fatigue and Denies palpitations Physical Exam Vital Signs: Last Vital Signs Pulse 66 01/18/24 15:03 BP 116/68 01/18/24 15:03 BMI result Body Mass Index 25.4 Const Other: Ambulates with cane General: cooperative, healthy appearing, comfortable and no acute distress Orientation/consciousness: patient oriented x3 Neck Neck: Yes normal visual inspection Chest Chest palpation & inspection: other (Pacemaker pocket has slight swelling with the wound healing well) Resp Effort & Inspection: normal respiratory effort Auscultation: clear to auscultation bilaterally, no crackles, no rales, no rhonchi and no wheezes Cardio Jugular venous distension: no JVD Rate: regular rate Rhythm: regular rhythm Heart sounds: S1 normal heart sound present, S2 normal heart sound present, no murmurs and no rubs Neuro General: patient oriented x3 Extrem General: Yes normal to inspection, No no pedal edema and No calf tenderness Psych Appearance: grossly normal Mental Status: mental status grossly normal Speech and movement: Normal speech and movement present Office Procedures Cardiac Device Check Cardiac Device Check Details: Dual-chamber Medtronic pacemaker in place. Programmed in MVP mode with rate response. Atrial pacing about 46% of the time. Patient active about 6 hours a day. No significant atrial fibrillation noted. One episode of high ventricular rate consistent with SVT noted. Atrial ventricular sensing is excellent. Pacing lead impedance is stable. Atrial ventricular pacing thresholds excellent and reprogrammed to enhance battery life. Battery life is at about 16 years [id number] Cardiac Device Check, pacemaker dual lead Procedure code (CPT) selection complete Assessment & Plan Assessment & Plan (1) Pacemaker: Code(s): Z95.0 - Presence of cardiac pacemaker Category: Medical Plan: Cardiac pacemaker in-situ for syncope and significant sinus pauses suggestive sinoatrial holland dysfunction. Since then she has had no recurrent lightheadedness and syncope and feels better. Pacemaker is working well. Will follow remotely every 3 months. Follow up in the clinic in 6 months time. (2) Nonobstructive atherosclerosis of coronary artery: Onset Date: ~09/2017 Comment: Prior calcium score over 1000. Cardiac catheterization done 09/22/2017 showing only mild luminal irregularities left main, left circumflex, lad and RCA. Reports of anginal sounding symptoms. Had recent total hip replacement without reported cardiac complications. EKG done 04/11/2020 showing normal sinus rhythm, lateral infarct, age undetermined, unchanged from prior EKG, rate 67. Code(s): I25.10 - Atherosclerotic heart disease of [place] coronary artery without angina pectoris Category: Medical Plan: Prior history of nonobstructive CAD by cardiac catheterization with heavy calcium burden in the coronary tree. Continue aggressive risk factor modification. Blood pressure is currently well optimized advised continue aspirin therapy. Continue high-intensity statin therapy with target goal LDL less than 70 mg/dL. No concerning symptoms that requires further workup at this point time. Will follow up in the clinic in 6 months time, sooner p.r.n.. Thank you for allowing me to partake in the care Coding Level of Care Code Est Pt Level 4 (33491) Diagnoses Pacemaker Z95.0 Nonobstructive atherosclerosis of coronary artery I25.10 CPT Codes Cardiac Device Check - Cardiac Device 2: [id number] Cardiac Device Check, pacemaker dual lead ([id number])
== END 2024-01-18 15:31 | disposition home or self-care (01) ==
PROVIDERS: PCP Internal Medicine; Visit Provider Internal Medicine Cardiovascular Disease
DX: I25.10 Atherosclerotic heart disease of native coronary artery without angina pectoris (principal); Z95.0 Presence of cardiac pacemaker
CPT/HCPCS: 93280; 99214

== ENCOUNTER → 2024-01-18 14:36 | Outpatient (BNVA) | payer OTHER, SELFPAY | PROVIDERS: PCP Internal Medicine; Visit Provider Internal Medicine Cardiovascular Disease | DX: I25.10 Atherosclerotic heart disease of native coronary artery without angina pectoris (principal); Z79.82 Long term (current) use of aspirin; Z79.899 Other long term (current) drug therapy; Z45.018 Encounter for adjustment and management of other part of cardiac pacemaker | CPT/HCPCS: 93280 ==

== ENCOUNTER 2024-01-28 09:37 | Outpatient (AMB) | payer OTHER, SELFPAY ==
[2024-01-28 10:28] VITALS: BP 128/74
--- NOTE | 2024-01-28 10:28 | MHC.OFFVIS ---
Vital Signs 01/28/24 10:28 Height 5 ft BP 128/74 Blood Pressure Location Rt brachial Position Sitting Intake Visit Reasons: 6m follow up movement disorder-LVM Intake Note: Patient presents for 6 month follow up. I have shaking on right side now and my hands would seize up still has no taste and having trouble sleeping. Allergies Sulfa (Sulfonamide Antibiotics) Allergy (Unknown, Verified 01/28/24 10:32) vomiting sulfamethoxazole [From Bactrim] Allergy (Unknown, Verified 01/28/24 10:32) Unknown trimethoprim [From Bactrim] Allergy (Unknown, Verified 01/28/24 10:32) Unknown HPI Comments Details: 78-yr-old female presents for f/u visit. Pt reports she had a medtronic pacemaker inserted in November d/t episodes of syncope and heart monitor showed prolonged asystole. She has noticed increase in her tremors, now seeing it in the right hand as well as the left. Such when making coffee. Has noticed some hand posturing (hands spreading out/hyperextending), initially in the left hand, but today has noticed it in the right hand as well. She is sleeping better since the pacemaker insertion. Before she felt the right shoulder and neck pain would interfere with her sleep quality. No falls. May feel shaky if on uneven surfaces- so uses the cane when outside. She feels she might not be as social as she used to be since before the pacemaker. But once she does socialize, she does enjoy it. She has not been going to her social chorus group. [facility] Medical History Murmur HLD (hyperlipidemia) HTN (hypertension) Nonobstructive atherosclerosis of coronary artery (~09/2017) Surgical History History of right hip replacement (~11/2019) Hx of pelvic surgery Hx of eye surgery Hx of hysterectomy Hx of cardiac cath Family History Father CVD (cardiovascular disease) Mother No problems noted. Family/Other CVD (cardiovascular disease) Afib Brother Tumor of tongue Social History Household Members: Spouse Housing: House Alcohol intake: former Patient Tobacco Use Status: Former Tobacco user Review of Systems Const All systems reviewed & are unremarkable except as noted in HPI and below Physical Exam Vital Signs: Last Vital Signs BP 128/74 01/28/24 10:28 BMI result Body Mass Index 25.4 Const General: cooperative and no acute distress Resp Effort & Inspection: normal respiratory effort and able to speak in complete sentences Neuro Other: A&O x's 3 Mild dysconjucate gaze. Mild left lower facial droop- chronic Left 1st finger rest tremor- intermittent BUE, L > R, postural tremor. Mild BUE L > R tone. FFM- slight decrease on left. Foot taps- slight decrease on left. Slightly slow to stand, decreased arm swing, short steps w/ narrow base, steady w/ cane. Assessment & Plan Assessment & Plan (1) Tremor: Comment: assymetric L > R Code(s): R25.1 - Tremor, unspecified Category: Medical (2) Syncope: Code(s): R55 - Syncope and collapse Category: Medical Qualifiers: Syncope type: unspecified Qualified Code(s): R55 - Syncope and collapse (3) Pacemaker: Code(s): Z95.0 - Presence of cardiac pacemaker Category: Medical Plan Pt has again had mild progression of her movement s/s- including increased tremor, rigidity which is looking more consistent w/ a progressive movement d/o process, such as PD. Offered DaTscan, however pt is not interested at this time, as she still needs to undergo f/u cardiac work-up. If movement s/s worsen, consider trial of dopamenergic agent. Continue to engage in regular cognitive, social, and physical activity as tolerated. Monitor mood. Coding Level of Care Code Est Pt Level 4 (38285) Diagnoses Tremor R25.1 Syncope, unspecified syncope type R55 Syncope type: unspecified Pacemaker Z95.0
== END 2024-01-28 11:12 | disposition home or self-care (01) ==
PROVIDERS: PCP Internal Medicine; Visit Provider Nurse Practitioner Family
DX: R25.1 Tremor, unspecified (principal); R55 Syncope and collapse; Z95.0 Presence of cardiac pacemaker
CPT/HCPCS: 99214

== ENCOUNTER → 2024-01-28 09:37 | Outpatient (BNVA) | payer OTHER, SELFPAY | PROVIDERS: PCP Internal Medicine; Visit Provider Nurse Practitioner Family ==

== ENCOUNTER 2024-02-15 08:09 | Outpatient (REF) | payer OTHER, SELFPAY ==
[2024-02-15 09:19] LABS: Anion Gap 14 (12-20); Blood Urea Nitrogen 15 mg/dL (9-16); Calcium 10.1 mg/dL (8.4-10.2); Carbon Dioxide 22 mmol/L (22-29); Chloride 108 mmol/L (96-108); Estimated Glomerular Filt Rate > 60; Glucose Random 90 mg/dL (60-115); Potassium 4.1 mmol/L (3.3-5.1); Sodium 140 mmol/L (135-145)
== END 2024-02-15 08:10 | disposition home or self-care (01) ==
LOC: HO.LAB 08:09
PROVIDERS: PCP Internal Medicine; Visit Provider Nurse Practitioner Family
DX: R93.89 Abnormal findings on diagnostic imaging of other specified body structures (principal); I10 Essential (primary) hypertension
CPT/HCPCS: 36415; 80048

== ENCOUNTER 2024-02-23 14:01 | Outpatient (REF) | payer OTHER, SELFPAY ==
--- NOTE | ~2024-02-23 | CT_ITS ---
EXAMINATION: CT CHEST WITH CONTRAST CLINICAL INFORMATION: Questionable retrocardiac mass on chest radiograph from 12/13/2023 COMPARISON: Previous radiograph TECHNIQUE: Multidetector volumetric CT imaging of the chest was obtained after the administration of 65 mL of Omnipaque 350 intravenous contrast without immediate adverse reactions. Axial MIP volume rendering provided. Sagittal and coronal reformatted images were obtained. This CT examination was performed using dose optimization techniques as appropriate, variously including the following: *Automated exposure control *Adjustment of mA and/or kV according to patient size (this includes techniques or standardized protocols for targeted exams where dose is matched to indication/reason for exam; i.e. extremities or head) *Use of iterative reconstruction technique DLP: 153 mGy-cm FINDINGS: WEIR FISHER: Unremarkable. There is pacemaker present with leads over the right atrium and ventricle LUNGS: The lungs are clear with no evidence of inflammation or nodules. MEDIASTINUM: There is tortuosity of the descending aorta creating appearance of retroperitoneal mass. There is no dilatation of aorta, mediastinal or hilar lymphadenopathy seen. Coronary artery calcifications present. There is no pericardial effusion. PLEURA: There is no pleural effusion. No pleural mass or thickening. AXILLA: No lymphadenopathy. UPPER ABDOMEN: Visualized kidneys demonstrate bilateral cysts and there is nephrolithiasis on the right OSSEOUS STRUCTURES: There are multilevel degenerative changes. CT/CT chest w IV con IMPRESSION: 1. Tortuous descending aorta creating appearance of retroperitoneal mass. 2. Bilateral renal cysts and nephrolithiasis on the right. Fleischner guidelines were followed.
[2024-02-23] MEDS: iohexoL 350 MG/ML 100 ML INFUS..BTL 65 ML IV (14:46)
== END 2024-02-23 14:02 | disposition home or self-care (01) ==
LOC: HO.CT 14:01
PROVIDERS: PCP Internal Medicine; Visit Provider Nurse Practitioner Family
DX: R93.89 Abnormal findings on diagnostic imaging of other specified body structures (principal)
CPT/HCPCS: 71260; Q9967

== ENCOUNTER → 2024-03-30 23:59 | Outpatient (BNV) | payer OTHER, SELFPAY ==
--- NOTE | 2024-04-10 17:33 | MHC.OFFVIS ---
Intake Visit Reasons: Remote device check- Medtronic Allergies Sulfa (Sulfonamide Antibiotics) Allergy (Unknown, Verified 01/28/24 10:32) vomiting sulfamethoxazole [From Bactrim] Allergy (Unknown, Verified 01/28/24 10:32) Unknown trimethoprim [From Bactrim] Allergy (Unknown, Verified 01/28/24 10:32) Unknown Iodinated Contrast Media Adverse Reaction (Verified 02/18/24 18:16) Unknown PFSH Medical History Murmur HLD (hyperlipidemia) HTN (hypertension) Nonobstructive atherosclerosis of coronary artery (~09/2017) Surgical History History of right hip replacement (~11/2019) Hx of pelvic surgery Hx of eye surgery Hx of hysterectomy Hx of cardiac cath Family History Father CVD (cardiovascular disease) Mother No problems noted. Family/Other CVD (cardiovascular disease) Afib Brother Tumor of tongue Social History Household Members: Spouse Housing: House Alcohol intake: former Patient Tobacco Use Status: Former Tobacco user Office Procedures Cardiac Device Check Cardiac Device Check Details: Remote pacemaker report generated 03/30/2024. Pacemaker function is adequate. I was requested to read this study on 04/10/2024 [id number] Cardiac Device Interrogation, pacemaker Procedure code (CPT) selection complete Assessment & Plan Assessment & Plan (1) Pacemaker: Code(s): Z95.0 - Presence of cardiac pacemaker Category: Medical Plan: See above Coding Level of Care Code Procedure Only Diagnoses Pacemaker Z95.0 CPT Codes Cardiac Device Check - Cardiac Device 12: [id number] Cardiac Device Interrogation, pacemaker ([id number])
== END ==
PROVIDERS: PCP Internal Medicine; Visit Provider Internal Medicine Cardiovascular Disease
DX: Z45.018 Encounter for adjustment and management of other part of cardiac pacemaker (principal)
CPT/HCPCS: 93294

== ENCOUNTER → 2024-06-29 23:59 | Outpatient (BNV) | payer OTHER, SELFPAY ==
--- NOTE | 2024-07-11 16:17 | A.OFFVIS_ITS ---
Intake Visit Reasons: Remote device check- Medtronic Allergies Sulfa (Sulfonamide Antibiotics) Allergy (Unknown, Verified 01/28/24 10:32) vomiting sulfamethoxazole [From Bactrim] Allergy (Unknown, Verified 01/28/24 10:32) Unknown trimethoprim [From Bactrim] Allergy (Unknown, Verified 01/28/24 10:32) Unknown Iodinated Contrast Media Adverse Reaction (Verified 02/18/24 18:16) Unknown PFSH Medical History Murmur HLD (hyperlipidemia) HTN (hypertension) Nonobstructive atherosclerosis of coronary artery (~09/2017) Surgical History History of right hip replacement (~11/2019) Hx of pelvic surgery Hx of eye surgery Hx of hysterectomy Hx of cardiac cath Family History Father CVD (cardiovascular disease) Mother No problems noted. Family/Other CVD (cardiovascular disease) Afib Brother Tumor of tongue Social History Household Members: Spouse Housing: House Alcohol intake: former Patient Tobacco Use Status: Former Tobacco user Office Procedures Cardiac Device Check Cardiac Device Check Details: Remote pacemaker report generated 06/29/2024. Pacemaker function is adequate [id number] Cardiac Device Interrogation, pacemaker Procedure code (CPT) selection complete Assessment & Plan Assessment & Plan (1) Pacemaker: Code(s): Z95.0 - Presence of cardiac pacemaker Category: Medical Plan: See above Coding Level of Care Code Procedure Only Diagnoses Pacemaker Z95.0 CPT Codes Cardiac Device Check - Cardiac Device 12: [id number] Cardiac Device Int errogation, pacemaker ([id number])
== END ==
PROVIDERS: PCP Internal Medicine; Visit Provider Internal Medicine Cardiovascular Disease
DX: Z45.018 Encounter for adjustment and management of other part of cardiac pacemaker (principal)
CPT/HCPCS: 93294

== ENCOUNTER 2024-07-07 09:35 | Outpatient (AMB) | payer OTHER, SELFPAY ==
[2024-07-07 09:36] VITALS: BP 120/76; PULSE 70; BMI 30.6
--- NOTE | 2024-07-07 09:36 | A.OFFVIS_ITS ---
Vital Signs 07/07/24 09:36 Height 5 ft Weight 156 lb 8.451 oz BMI 30.6 BP 120/76 Blood Pressure Location Lt brachial Position Sitting Pulse 70 Intake Visit Reasons: 6 mth fu w device check- device visual Intake Note: 6 month follow-up with ekg Medtronic c/o issue pacemaker Medical Technologist Prn Required: No Allergies Sulfa (Sulfonamide Antibiotics) Allergy (Unknown, Verified 01/28/24 10:32) vomiting sulfamethoxazole [From Bactrim] Allergy (Unknown, Verified 01/28/24 10:32) Unknown trimethoprim [From Bactrim] Allergy (Unknown, Verified 01/28/24 10:32) Unknown Iodinated Contrast Media Adverse Reaction (Verified 02/18/24 18:16) Unknown Medication List - Last Reconciled 07/07/24 by Chato Chavez MD acetaminophen (Tylenol) 325 mg PO QID PRN amlodipine 2.5 mg PO DAILY ascorbate calcium (vitamin C) 500 mg PO DAILY aspirin (Adult Low Dose Aspirin) 81 mg PO DAILY atorvastatin 80 mg PO DAILY cholecalciferol (vitamin D3) (Vitamin D3) 50 mcg PO DAILY diphenhydramine HCl (Benadryl) 25 mg orally; Take 1 capsule the AM of Day before CT scan, Take 1 capsule the PM of day Before CT scan, Take 1 capsule the AM Of the CT scan; famotidine (Pepcid) 20 mg orally Take 1 tablet the AM of Day before CT scan, Take 1 tablet the PM of day Before CT scan, Take 1 tablet the AM Of the CT scan; hydrocodone-acetaminophen 10-325 mg 1 tab PO BID PRN levothyroxine 25 mcg PO DAILY losartan 25 mg PO DAILY prednisone 20 mg orally: Take 1 tablet the AM of Day before CT scan, Take 1 tablet the PM of day Before CT scan, Take 1 tablet the AM Of the CT scan; vitamin B complex 1 tab PO DAILY vitamin E 670 mg PO DAILY HPI Comments Details: Annmarie comes for follow-up. She is worried about losing her vision mostly in the left eye and also worried about a Parkinson's disease. She has been losing weight. She was worried about pacemaker site with pacemaker popping out a little bit more. No skin erosion. She has not had any lightheadedness or syncope. She denies any exertional chest pain. [facility] Medical History Murmur HLD (hyperlipidemia) HTN (hypertension) Nonobstructive atherosclerosis of coronary artery (~09/2017) Surgical History History of right hip replacement (~11/2019) Hx of pelvic surgery Hx of eye surgery Hx of hysterectomy Hx of cardiac cath Family History Father CVD (cardiovascular disease) Mother No problems noted. Family/Other CVD (cardiovascular disease) Afib Brother Tumor of tongue Social History Household Members: Spouse Housing: House Alcohol intake: former Patient Tobacco Use Status: Former Tobacco user Review of Systems Const Denies chills, Denies fatigue, Denies fever(s), Denies frequent falls, Denies weakness, Denies weight gain and Denies weight loss ENT Denies dizziness Card Denies chest pain, Denies leg edema, Denies lightheadedness, Denies palpitations, Denies dyspnea, Denies dyspnea on exertion, Denies orthopnea and Denies other (loss of consciousness) Resp Denies cough, Denies dyspnea and Denies dyspnea on exertion GI Denies hematochezia and Denies change in stool character Musc Denies abnormal gait, Denies muscle weakness, Denies numbness, Denies radiating pain into limb and Denies tingling Neuro Denies abnormal gait, Denies dizziness, Denies frequent falls, Denies numbness, Denies tingling and Denies weakness Endo Denies fatigue and Denies palpitations Physical Exam Vital Signs: Last Vital Signs Pulse 70 07/07/24 09:36 BP 120/76 07/07/24 09:36 BMI result Body Mass Index 30.6 Const Other: Ambulates with cane General: cooperative, healthy appearing, comfortable and no acute distress Orientation/consciousness: patient oriented x3 Neck Neck: Yes normal visual inspection Chest Chest palpation & inspection: other (Pacemaker pocket has slight swelling with the wound healing well) Resp Effort & Inspection: normal respiratory effort Auscultation: clear to auscultation bilaterally, no crackles, no rales, no rhonchi and no wheezes Cardio Jugular venous distension: no JVD Rate: regular rate Rhythm: regular rhythm Heart sounds: S1 normal heart sound present, S2 normal heart sound present, no murmurs and no rubs Neuro General: patient oriented x3 Extrem General: Yes normal to inspection, No no pedal edema and No calf tenderness Psych Appearance: grossly normal Mental Status: mental status grossly normal Speech and movement: Normal speech and movement present Office Procedures Cardiac Device Check Cardiac Device Check Details: Dual-chamber Medtronic pacemaker in place. Programmed in MVP mode with rate response. Atrial ventricular sensing is excellent. Atrial pacing 45% time. Few high ventricular rate episode noted consistent with either sinus tachycardia or SVT. Atrial pacing thresholds excellent and reprogrammed to enhance battery life. Ventricular pacing thresholds are adequate. Pacing lead impedance is stable. Battery life is excellent at 14 years [id number] Cardiac Device Check, pacemaker dual lead Procedure code (CPT) selection complete Assessment & Plan Assessment & Plan (1) Pacemaker: Code(s): Z95.0 - Presence of cardiac pacemaker Category: Medical Plan: Cardiac pacemaker in-situ for syncope and prolonged sinus pauses. Pacemaker is working well. Reprogrammed for adequate function. Will follow remotely in 3 months. Follow up in the clinic in 6 months time. (2) Nonobstructive atherosclerosis of coronary artery: Onset Date: ~09/2017 Comment: Prior calcium score over 1000. Cardiac catheterization done 09/22/2017 showing only mild luminal irregularities left main, left circumflex, lad and RCA. Reports of anginal sounding symptoms. Had recent total hip replacement without reported cardiac complications. EKG done 04/11/2020 showing normal sinus rhythm, lateral infarct, age undetermined, unchanged from prior EKG, rate 67. Code(s): I25.10 - Atherosclerotic heart disease of [place] coronary artery without angina pectoris Category: Medical Plan: Presence of coronary atherosclerosis with nonobstructive CAD. Currently having no symptoms of angina. Continue aggressive medical therapy. Continue low-dose aspirin therapy for life. Continue high-intensity statin therapy. Target goal LDL less than 70 mg/dL. Continue aggressive blood pressure control which is currently well optimized encouraged to maintain activity level as tolerated. Advised to call me with any new symptoms. Follow up in the clinic in 6 months time, sooner p.r.n.. Thank you for allowing me to partake in her care Coding Level of Care Code Est Pt Level 4 (57781) Complex EM visit Add On G2211 Diagnoses Pacemaker Z95.0 Nonobstructive atherosclerosis of coronary artery I25.10 CPT Codes Cardiac Device Check - Cardiac Device 2: [id number] Cardiac Device Check, pacemaker dual lead ([id number])
== END 2024-07-07 10:08 | disposition home or self-care (01) ==
PROVIDERS: PCP Internal Medicine; Visit Provider Internal Medicine Cardiovascular Disease
DX: I25.10 Atherosclerotic heart disease of native coronary artery without angina pectoris (principal); Z95.0 Presence of cardiac pacemaker
CPT/HCPCS: 93280; 99214; G2211

== ENCOUNTER → 2024-07-07 09:35 | Outpatient (BNVA) | payer OTHER, SELFPAY | PROVIDERS: PCP Internal Medicine; Visit Provider Internal Medicine Cardiovascular Disease | DX: I25.10 Atherosclerotic heart disease of native coronary artery without angina pectoris (principal); G20.A1 Parkinson's disease without dyskinesia, without mention of fluctuations; Z45.018 Encounter for adjustment and management of other part of cardiac pacemaker | CPT/HCPCS: 93280 ==

== ENCOUNTER 2024-08-30 12:24 | Outpatient (AMB) | payer OTHER, SELFPAY ==
[2024-08-30 12:43] VITALS: BP 120/72; PULSE 71; O2SAT 96; BMI 31.5
--- NOTE | 2024-08-30 12:43 | MHC.OFFVIS ---
Vital Signs 08/30/24 12:43 Height 5 ft Weight 161 lb 6 oz BMI 31.5 BP 120/72 Blood Pressure Location Lt brachial Position Sitting Pulse 71 Pulse Source Pulse Oximeter Pulse Oximetry (%) 96 Oxygen Delivery Method Room Air Intake Visit Reasons: Follow Up Intake Note: patient states not sleeping, RLS, memory issues, hands seize and wants opinion on MJ for sleep? Allergies Sulfa (Sulfonamide Antibiotics) Allergy (Unknown, Verified 08/30/24 12:50) vomiting sulfamethoxazole [From Bactrim] Allergy (Unknown, Verified 08/30/24 12:50) Unknown trimethoprim [From Bactrim] Allergy (Unknown, Verified 08/30/24 12:50) Unknown Iodinated Contrast Media Adverse Reaction (Verified 08/30/24 12:50) Unknown Medication List - Last Reconciled 08/30/24 by VERÓNICA Erickson acetaminophen (Tylenol) 325 mg PO QID PRN amlodipine 2.5 mg PO DAILY ascorbate calcium (vitamin C) 500 mg PO DAILY aspirin (Adult Low Dose Aspirin) 81 mg PO DAILY atorvastatin 80 mg PO DAILY cholecalciferol (vitamin D3) (Vitamin D3) 50 mcg PO DAILY diphenhydramine HCl (Benadryl) 25 mg orally; Take 1 capsule the AM of Day before CT scan, Take 1 capsule the PM of day Before CT scan, Take 1 capsule the AM Of the CT scan; famotidine (Pepcid) 20 mg orally Take 1 tablet the AM of Day before CT scan, Take 1 tablet the PM of day Before CT scan, Take 1 tablet the AM Of the CT scan; hydrocodone-acetaminophen 10-325 mg 1 tab PO BID PRN levothyroxine 25 mcg PO DAILY losartan 25 mg PO DAILY prednisone 20 mg orally: Take 1 tablet the AM of Day before CT scan, Take 1 tablet the PM of day Before CT scan, Take 1 tablet the AM Of the CT scan; vitamin B complex 1 tab PO DAILY vitamin E 670 mg PO DAILY HPI Comments Details: 78-yr-old female presents for f/u visit for tremor, however she is most concerned about her sleep issues. Patient is accompanied by her . Patient denies any significant interval changes.. She is not sleeping as well. States she can go 2 whole days without sleeping. Tries to go to sleep, but ends up walking around the house all night long. Does like to use her iPad in the evening/night, states it soothes her. States she has tried many medications, which have not helped- including recently mirtazapine (unsure of the dose). However, she recently tried CBD gummies, and this is helpful to initiate sleep- she is curious about our thoughts on using cannabis for sleep. She also notes she has RLS- which she sometimes treats with her prn hydrocodone. She describes her RLS as pain, urge to move, creep/crawling sensation, cannot relax. She has not been specifically treated for RLS in the past. Her hands have been shaky- but this is not overly bothersome. At times, her hand will ?seize ?- left greater than right hand posturing (hands abduct and hyperextend). Her balance is a bit worse. Reports her memory is worse. Reports her vision is worsening- left eye is wavy/shadowy. Has in routine follow-up eye exam scheduled No falls. Uses a cane when she walks outside. [facility] Medical History Murmur HLD (hyperlipidemia) HTN (hypertension) Nonobstructive atherosclerosis of coronary artery (~09/2017) Surgical History History of right hip replacement (~11/2019) Hx of pelvic surgery Hx of eye surgery Hx of hysterectomy Hx of cardiac cath Family History Father CVD (cardiovascular disease) Mother No problems noted. Family/Other CVD (cardiovascular disease) Afib Brother Tumor of tongue Social History Household Members: Spouse Housing: House Alcohol intake: former Patient Tobacco Use Status: Former Tobacco user Physical Exam Vital Signs: Last Vital Signs Pulse 71 08/30/24 12:43 BP 120/72 08/30/24 12:43 Pulse Ox 96 08/30/24 12:43 Oxygen Delivery Method Room Air 08/30/24 12:43 BMI result Body Mass Index 31.5 Const General: cooperative and no acute distress Resp Effort & Inspection: normal respiratory effort and able to speak in complete sentences Neuro Other: A&O x's 3 Mild dysconjucate gaze. Mild left lower facial droop- chronic Mild LUE rest tremor- intermittent BUE, L > R, postural tremor. Mild BUE L > R tone. FFM- slight decrease on left. Foot taps- slight decrease on left. Slightly slow to stand, decreased arm swing, short steps w/ narrow base, steady w/ cane. Assessment & Plan Assessment & Plan (1) Tremor: Comment: assymetric L > R Code(s): R25.1 - Tremor, unspecified Category: Medical (2) Restless leg syndrome: Code(s): G25.81 - Restless legs syndrome Category: Medical (3) Sleep difficulties: Code(s): G47.9 - Sleep disorder, unspecified Category: Medical Plan For sleep issues in setting of RLS: Check fasting labs for common etiologies of RLS- lab slip given to patient. Advised that there is not good quality evidence to use cannabis or marijuana for sleep. From our knowledge of how the substances work, most likely these will help people fall asleep, but likely will impair overall sleep quality. Thus, I would not encourage her to use a CBD gummy on a regular scheduled basis. Rather I suggest we investigate an attempt to treat the most likely cause of her sleep disruption, which I suspect are her RLS symptoms. Trial gabapentin 100 mg cap- start 1 cap 3 hours before bedtime times 2-3 days, then 1 cap 1 and 2 hours before bedtime for 2-3 days, then 1 cap 1 and 2 hours before bedtime and 1 cap at bedtime. Discussed that gabapentin may help body pains, tremor, hand posturing, as well. Reviewed common side effects of gabapentin including but not limited to edema, dizziness, cognitive slowing, mood changes. Information shared on RLS patient education resources- such as ?navigating life with restless leg syndrome? by Dr. Dang. Continue to monitor increased tremor, rigidity which is looking more consistent w/ a progressive movement d/o process, such as PD. Patient previously declined DaTscan, we will consider if symptoms progress further.. If tremor and/or movement s/s worsen, consider trial of dopamenergic agent. Continue to engage in regular cognitive, social, and physical activity as tolerated. Monitor mood. Monitored cognitive function- could consider neuropsych evaluation in follow-up. Will follow-up upon review of above and patient to follow-up in clinic in 6 months or sooner prn. Orders: Orders Ferritin Today E78.5 - Hyperlipidemia, unspecified, G25.81 - Restless legs syndrome, I10 - Essential (primary) hypertension, R25.1 - Tremor, unspecified, R55 - Syncope and collapse IRON PROFILE Today E78.5 - Hyperlipidemia, unspecified, G25.81 - Restless legs syndrome, I10 - Essential (primary) hypertension, R25.1 - Tremor, unspecified, R55 - Syncope and collapse Comprehensive Met. Panel Today E78.5 - Hyperlipidemia, unspecified, G25.81 - Restless legs syndrome, I10 - Essential (primary) hypertension, R25.1 - Tremor, unspecified, R55 - Syncope and collapse Folate Today E78.5 - Hyperlipidemia, unspecified, G25.81 - Restless legs syndrome, I10 - Essential (primary) hypertension, R25.1 - Tremor, unspecified, R55 - Syncope and collapse Vitamin B12 Today E78.5 - Hyperlipidemia, unspecified, G25.81 - Restless legs syndrome, I10 - Essential (primary) hypertension, R25.1 - Tremor, unspecified, R55 - Syncope and collapse Complete Blood Count Auto Diff Today E78.5 - Hyperlipidemia, unspecified, G25.81 - Restless legs syndrome, I10 - Essential (primary) hypertension, R25.1 - Tremor, unspecified, R55 - Syncope and collapse Vitamin E Today E78.5 - Hyperlipidemia, unspecified, G25.81 - Restless legs syndrome, I10 - Essential (primary) hypertension, R25.1 - Tremor, unspecified, R55 - Syncope and collapse Medications: New gabapentin 100 - 300 mg (1 - 3 x 100 mg) PO BEDTIME 90 caps 3RF 30 days Discontinued prednisone Discontinued Reason: Doctor's Order 20 mg orally: Take 1 tablet the AM of Day before CT scan, Take 1 tablet the PM of day Before CT scan, Take 1 tablet the AM Of the CT scan; 3 tabs 0RF contrast allergy Coding Level of Care Code Est Pt Level 4 (95311) Diagnoses Tremor R25.1 Restless leg syndrome G25.81 Sleep difficulties G47.9
== END 2024-08-30 13:54 | disposition home or self-care (01) ==
PROVIDERS: PCP Internal Medicine; Visit Provider Nurse Practitioner Family
DX: R25.1 Tremor, unspecified (principal); G25.81 Restless legs syndrome; G47.9 Sleep disorder, unspecified
CPT/HCPCS: 99214

== ENCOUNTER → 2024-08-30 12:24 | Outpatient (BNVA) | payer OTHER, SELFPAY | PROVIDERS: PCP Internal Medicine; Visit Provider Nurse Practitioner Family ==

== ENCOUNTER → 2024-09-28 23:59 | Outpatient (BNV) | payer OTHER, SELFPAY ==
--- NOTE | 2024-10-02 13:06 | MHC.OFFVIS ---
Intake Visit Reasons: Remote device check- [employer] Allergies Sulfa (Sulfonamide Antibiotics) Allergy (Unknown, Verified 08/30/24 12:50) vomiting sulfamethoxazole [From Bactrim] Allergy (Unknown, Verified 08/30/24 12:50) Unknown trimethoprim [From Bactrim] Allergy (Unknown, Verified 08/30/24 12:50) Unknown Iodinated Contrast Media Adverse Reaction (Verified 08/30/24 12:50) Unknown PFSH Medical History Murmur HLD (hyperlipidemia) HTN (hypertension) Nonobstructive atherosclerosis of coronary artery (~09/2017) Surgical History History of right hip replacement (~11/2019) Hx of pelvic surgery Hx of eye surgery Hx of hysterectomy Hx of cardiac cath Family History Father CVD (cardiovascular disease) Mother No problems noted. Family/Other CVD (cardiovascular disease) Afib Brother Tumor of tongue Social History Household Members: Spouse Housing: House Alcohol intake: former Patient Tobacco Use Status: Former Tobacco user Office Procedures Cardiac Device Check Cardiac Device Check Details: Remote pacemaker report generated 09/28/2024. Pacemaker function is adequate. High ventricular rate most consistent with SVT [id number] Cardiac Device Interrogation, pacemaker Procedure code (CPT) selection complete Assessment & Plan Assessment & Plan (1) Pacemaker: Code(s): Z95.0 - Presence of cardiac pacemaker Category: Medical Plan: See above Coding Level of Care Code Procedure Only Diagnoses Pacemaker Z95.0 CPT Codes Cardiac Device Check - Cardiac Device 12: [id number] Cardiac Device Interrogation, pacemaker ([id number])
== END ==
PROVIDERS: PCP Internal Medicine; Visit Provider Internal Medicine Cardiovascular Disease
DX: I47.10 Supraventricular tachycardia, unspecified (principal); Z95.0 Presence of cardiac pacemaker
CPT/HCPCS: 93294

== ENCOUNTER 2025-01-10 13:51 | Outpatient (AMB) | payer OTHER, SELFPAY ==
[2025-01-10 14:32] VITALS: BMI 30.9
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
--- OUTSIDE RECORDS SUMMARY | 2025-01-10 15:47 | XMS_ITS | Patient Health Record ---
Author Organization [facility] Address [address] [place] [address] Care Team Providers Care French Comber Name Role Phone Coco KAUFFMAN, Jayesh Primary Care Provider Job Barone Unavailable [phone] Allergies Allergen (clinical drug ingredient) Drug/Non Drug Allergy documented on EMR Reaction Allergy Type Onset Date Status cats, dogs, pollen (uncoded) Unknown Allergy Active sulfa nausea and vomiting Drug Allergy Active Reason For Referral No Information Medications Medication SIG (Take, Route, Frequency, Duration) Notes Start Date End Date Status amLODIPine Besylate 5 MG Oral for 90 Unknown Cephalexin 500 MG 1 capsule Orally gayathri ry 12 hrs for 10 day(s) Unknown Vitamin D 2000 UNIT Orally 02/28/2015 Unknown Valsartan-hydroCHLOROthiazi de 80-12.5 MG Oral for 90 Unknown Pravastatin Sodium 40 MG Oral for 90 Unknown Levothyroxine Sodium 25 MCG Oral for 90 Unknown Famotidine 20 MG 1 tablet Orally Tw day 02/28/2015 Unknown Estradiol 0.0375 MG/24HR Transdermal for 28 Unknown Diclofenac Sodium 75 MG Oral for 90 Unknown Social History Tobacco use other than smoking: Question Answer Notes Are you an other tobacco user? No Problems No Known Problems Plan Of Treatment Pending Test Test Name Order Date [id number] Plate 07/04/2015 [id number] I&D ABSCESS- SIMPLE,SINGLE 016 [id number] I&D ABSCESS- SIMPLE,SINGLE 015 27065 I&D ABSCESS- SIMPLE,SINGLE 015 Insurance Providers Payer Name Payer Address Payer Phone Subscriber Number Group Number Insured Name Patient Relationship to Insured Coverage Start Date Coverage End Date [employer] [address] [place] [phone] [id number] Annmarie Randhawa Self - patient is the insured Medical (General) History Medical History History ICD Code osteoarthritis asthma Back,Hip,and Knee pain Hiatal hernia Hypertension Reflux Sciatica Thyroid disorder Measles Chicken pox Cholesterol Surgical History Surgery Date(Month/Year) cataract surgery 01/2012 hysterectomy 03/2000 Hospitalization History Reason Date(Month/Year) [facility]- prolapse 12/26/14
== END 2025-01-10 15:31 | disposition home or self-care (01) ==
LOC: HO.HSMS 13:52
PROVIDERS: PCP Internal Medicine; Visit Provider Nurse Practitioner Family
DX: M25.50 Pain in unspecified joint (principal); E55.9 Vitamin D deficiency, unspecified; R25.1 Tremor, unspecified; G47.9 Sleep disorder, unspecified
CPT/HCPCS: 99214

== ENCOUNTER → 2025-01-10 13:51 | Outpatient (BNVA) | payer OTHER, SELFPAY | PROVIDERS: PCP Internal Medicine; Visit Provider Nurse Practitioner Family ==

== ENCOUNTER 2025-01-16 10:52 | Outpatient (AMB) | payer OTHER, SELFPAY ==
[2025-01-16 11:10] VITALS: BP 120/80; PULSE 65; BMI 30.6
--- NOTE | 2025-01-16 11:10 | A.OFFVIS_ITS ---
Vital Signs 01/16/25 11:10 Height 5 ft Weight 156 lb 8.451 oz BMI 30.6 BP 120/80 Blood Pressure Location Lt brachial Position Sitting Pulse 65 Intake Visit Reasons: f/u device ck Intake Note: Follow-up with ekg and Medtronic device is bulging ? Organisational Psychologist Required: No Allergies Sulfa (Sulfonamide Antibiotics) Allergy (Unknown, Verified 01/10/25 14:37) vomiting sulfamethoxazole [From Bactrim] Allergy (Unknown, Verified 01/10/25 14:37) Unknown trimethoprim [From Bactrim] Allergy (Unknown, Verified 01/10/25 14:37) Unknown Iodinated Contrast Media Adverse Reaction (Verified 01/10/25 14:37) Unknown Medication List - Last Reconciled 01/16/25 by Chato Chavez MD acetaminophen (Tylenol) 325 mg PO QID PRN amlodipine 2.5 mg PO DAILY ascorbate calcium (vitamin C) 500 mg PO DAILY aspirin (Adult Low Dose Aspirin) 81 mg PO DAILY atorvastatin 80 mg PO DAILY carbidopa-levodopa 25-100 mg 0.5 tabs PO BID 30 days cholecalciferol (vitamin D3) (Vitamin D3) 50 mcg PO DAILY ezetimibe 10 mg PO DAILY famotidine (Pepcid) 20 mg orally Take 1 tablet the AM of Day before CT scan, Take 1 tablet the PM of day Before CT scan, Take 1 tablet the AM Of the CT scan; gabapentin 100 - 300 mg (1 - 3 x 100 mg) PO BEDTIME 30 days hydrocodone-acetaminophen 10-325 mg 1 tab PO BID PRN levothyroxine 25 mcg PO DAILY losartan 25 mg PO DAILY vitamin B complex 1 tab PO DAILY vitamin E 670 mg PO DAILY HPI Comments Details: Annmarie comes for follow-up. She has a lot of issues with pain. She is currently taking intermittently noncardiac prior to doing some heavy work around the house. Otherwise she has had no lightheadedness, syncope. No prolonged palpitation irregular heartbeat. Denies any exertional chest pain. No exertional shortness of breath. Takes all her medications. [facility] Medical History Murmur HLD (hyperlipidemia) HTN (hypertension) Nonobstructive atherosclerosis of coronary artery (~09/2017) Surgical History History of right hip replacement (~11/2019) Hx of pelvic surgery Hx of eye surgery Hx of hysterectomy Hx of cardiac cath Family History Father CVD (cardiovascular disease) Mother No problems noted. Family/Other CVD (cardiovascular disease) Afib Brother Tumor of tongue Social History Household Members: Spouse Housing: House Alcohol intake: former Patient Tobacco Use Status: Former Tobacco user Review of Systems Const Denies chills, Denies fatigue, Denies fever(s), Denies frequent falls, Denies weakness, Denies weight gain and Denies weight loss ENT Denies dizziness Card Denies chest pain, Denies leg edema, Denies lightheadedness, Denies palpitations , Denies dyspnea, Denies dyspnea on exertion, Denies orthopnea and Denies other (loss of consciousness) Resp Denies cough, Denies dyspnea and Denies dyspnea on exertion GI Denies hematochezia and Denies change in stool character Musc Denies abnormal gait, Denies muscle weakness, Denies numbness, Denies radiating pain into limb and Denies tingling Neuro Denies abnormal gait, Denies dizziness, Denies frequent falls, Denies numbness, Denies tingling and Denies weakness Endo Denies fatigue and Denies palpitations Physical Exam Vital Signs: Last Vital Signs Pulse 65 01/16/25 11:10 BP 120/80 01/16/25 11:10 BMI result Body Mass Index 30.6 Const Other: Ambulates with cane General: cooperative, healthy appearing, comfortable and no acute distress Orientation/consciousness: patient oriented x3 Neck Neck: Yes normal visual inspection Chest Chest palpation & inspection: other (Pacemaker pocket has slight swelling with the wound healing well) Resp Effort & Inspection: normal respiratory effort Auscultation: clear to auscultation bilaterally, no crackles, no rales, no rhonchi and no wheezes Cardio Jugular venous distension: no JVD Rate: regular rate Rhythm: regular rhythm Heart sounds: S1 normal heart sound present, S2 normal heart sound present, no murmurs and no rubs Neuro General: patient oriented x3 Extrem General: Yes normal to inspection, No no pedal edema and No calf tenderness Psych Appearance: grossly normal Mental Status: mental status grossly normal Speech and movement: Normal speech and movement present Office Procedures Cardiac Device Check Cardiac Device Check Details: Dual-chamber Medtronic pacemaker in place. Programmed in MVP mode with rate response at 60 beats per minute. Atrial pacing 35% of time. Few high ventricular rate episodes noted consistent with SVT. Atrial pacing thresholds are stable and reprogrammed to provide adequate safety. Ventricular pacing thresholds are stable. Atrial ventricular sensing is adequate. Pacing lead impedance is stable battery life is at about 13 years 65191-ZD Cardiac Device Check, pacemaker dual lead Procedure code (CPT) selection complete EKG Details: EKG shows normal sinus rhythm with high lateral Q-waves in lead 1 and AVF pos sibly because of asymmetric septal hypertrophy. No changes. 77858-Cpefshordqdpjnezx, Complete Assessment & Plan Assessment & Plan (1) Pacemaker: Code(s): Z95.0 - Presence of cardiac pacemaker Category: Medical Plan: Cardiac pacemaker in-situ for syncope and sick sinus syndrome. Pacemaker is working well. Patient is using the pacemaker about 35% of time. She has had no recurrent syncopal episodes. Will continue monitor remotely. Follow up in the clinic in 6 months time. (2) SVT (supraventricular tachycardia): Code(s): I47.10 - Supraventricular tachycardia, unspecified Category: Medical Plan: SVT which is present but short lasting. She has no significant symptoms related to it. Advised to call me with any prolonged palpitation that may change therapy to an alternative rate lowering therapy with metoprolol. Will continue monitor. Stress mitigation strategies was discussed. Avoidance of stimulants was discussed. (3) Nonobstructive atherosclerosis of coronary artery: Onset Date: ~09/2017 Comment: Prior calcium score over 1000. Cardiac catheterization done 09/22/2017 showing only mild luminal irregularities left main, left circumflex, lad and RCA. Reports of anginal sounding symptoms. Had recent total hip replacement without reported cardiac complications. EKG done 04/11/2020 showing normal sinus rhythm, lateral infarct, age undetermined, unchanged from prior EKG, rate 67. Code(s): I25.10 - Atherosclerotic heart disease of [place] coronary artery without angina pectoris Category: Medical Plan: Nonobstructive CAD without any significant symptoms of angina. Continue aspirin therapy. Continue high-intensity statin therapy with target goal LDL less than 70 mg/dL. Continue aggressive blood pressure control which is currently well optimized. Will follow up in the clinic in 6 months time, sooner p.r.n.. Thank you for allowing me to partake in her care Coding Level of Care Code Est Pt Level 4 (50050) Complex EM visit Add On G2211 Diagnoses Pacemaker Z95.0 SVT (supraventricular tachycardia) I47.10 Nonobstructive atherosclerosis of coronary artery I25.10 CPT Codes Cardiac Device Check - Cardiac Device 2: 24960-ML Cardiac Device Check, pacemaker dual lead ([id number]) EKG - CPT: 27762-Ytpkqzbmohsifhdlf, Complete ([id number])
--- OUTSIDE RECORDS SUMMARY | 2025-01-16 12:22 | XMS_ITS | Patient Health Record ---
Author Organization [facility] Address [address] [place] [address] Care Team Providers Care Sagger Filler Name Role Phone Coco KAUFFMAN, Jayesh Primary Care Provider Job Barone Unavailable [phone] Allergies Allergen (clinical drug ingredient) Drug/Non Drug [...] Famotidine 20 MG 1 tablet Orally Tw e day 02/28/2015 Unknown Estradiol 0.0375 MG/24HR Transdermal for 28 Unknown Diclofenac Sodium 75 MG Oral for 90 Unknown Social History Tobacco use other than smoking: Question Answer Notes Are you an other tobacco user? No Problems No Known Problems Plan Of Treatment Pending Test Test Name Order Date [id number] Plate 07/04/2015 71352 I&D ABSCESS- SIMPLE,SINGLE 016 63920 I&D ABSCESS- SIMPLE,SINGLE 015 91067 I&D ABSCESS- SIMPLE,SINGLE 015 Insurance Providers Payer Name Payer Address Payer Phone Subscriber Number Group Number Insured Name Patient Relationship to Insured Coverage Start Date Coverage End Date Cigna [address] [place] [address] [phone] [id number] Annmarie Randhawa Self - patient is the insured Medical (General) History Medical History History ICD Code osteoarthritis asthma Back,Hip,and Knee pain Hiatal hernia Hypertension Reflux Sciatica Thyroid disorder Measles Chicken pox Cholesterol Surgical History Surgery Date(Month/Year) cataract surgery 01/2012 hysterectomy 03/2000 Hospitalization History Reason Date(Month/Year) [facility]- prolapse 12/26/14
== END 2025-01-16 11:51 | disposition home or self-care (01) ==
LOC: HO.HCS 10:52
PROVIDERS: PCP Internal Medicine; Visit Provider Internal Medicine Cardiovascular Disease
DX: I47.10 Supraventricular tachycardia, unspecified (principal); Z95.0 Presence of cardiac pacemaker; I25.10 Atherosclerotic heart disease of native coronary artery without angina pectoris
CPT/HCPCS: 93010; 93280; 99214; G2211

== ENCOUNTER → 2025-01-16 10:52 | Outpatient (BNVA) | payer OTHER, SELFPAY | PROVIDERS: PCP Internal Medicine; Visit Provider Internal Medicine Cardiovascular Disease | DX: Z95.0 Presence of cardiac pacemaker (principal) | CPT/HCPCS: 93005; 93280 ==

== ENCOUNTER 2025-01-24 14:18 | Outpatient (AMB) | payer OTHER, SELFPAY ==
[2025-01-24 14:19] VITALS: BP 129/64; PULSE 75; RESP 16; O2SAT 98; BMI 30.5
--- NOTE | 2025-01-24 14:19 | A.OFFVIS_ITS ---
Vital Signs 01/24/25 14:19 Height 5 ft Weight 156 lb BMI 30.5 BP 129/64 Blood Pressure Location Rt brachial Position Sitting Respiration 16 Pulse 75 Pulse Source Pulse Oximeter Pulse Oximetry (%) 98 Oxygen Delivery Method Room Air Intake Visit Reasons: Pain in Unspecified Joint Field Research Associate Required: No Accompanied by: Life Partner Allergies Sulfa (Sulfonamide Antibiotics) Allergy (Unknown, Verified 01/24/25 14:24) vomiting sulfamethoxazole (From Bactrim) Allergy (Unknown, Verified 01/24/25 14:24) Unknown trimethoprim (From Bactrim) Allergy (Unknown, Verified 01/24/25 14:24) Unknown Iodinated Contrast Media Adverse Reaction (Verified 01/24/25 14:24) Unknown HPI Comments Details: The patient is a 79-year-old female presenting with chronic pain management. The patient reports experiencing widespread pain that significantly impacts her daily activities and quality of life. She has a history of Parkinson's disease, which contributes to her mobility issues and requires the use of a cane for balance. The patient has been managing her pain with hydrocodone, which she finds effective in alleviating her symptoms and allowing her to perform household tasks. Her PCP has retired and she is waiting for appointment with our new primary care doctor. Patient is unsure if the new PCP will continue with her hydrocodone prescription. She reports that mnip-yrj-mdyjtyw medications such as Tylenol and ibuprofen are no longer effective. The patient has also been prescribed gabapentin for restless leg syndrome, which she finds helpful. She has undergone multiple surgeries, including hip and shoulder replacements, and has a pacemaker due to previous cardiac issues. The patient experiences insomnia, which she manages with Tylenol PM, although it is not always effective. She has attempted physical therapy in the past without significant relief. Patient has undergone steroid injections and nerve blocks in the past without improvement of her symptoms. - Onset: Chronic, widespread pain affecting daily activities. - Quality: Severe, described as a 10 on a scale of 1 to 10. - Location: Pain is from head to toe, excluding the head. - Exacerbating factors: Physical activity, such as cleaning and walking. - Relieving factors: Hydrocodone provides significant relief. Takes once daily as needed - Interference: Pain interferes with daily activities and social interactions. - Affect: Pain significantly impacts mood and social interactions. - Analgesia: Hydrocodone is effective; vlqf-pfk-zbumkxt medications are ineffective. - Adverse Effects: No specific adverse effects reported from hydrocodone. - Activities of Daily Living: Pain limits ability to perform household tasks and social activities. - Aberrant Drug Related Behaviors: No evidence of misuse; patient adheres to prescribed regimen. Prescribed hydrocodone-acetaminophen 10-325 mg that she takes once daily as needed. Receives 20 Tablets monthly, last filled 12/19/2024. She reports last dose was taken 3 days ago. [facility] Medical History Murmur HLD (hyperlipidemia) HTN (hypertension) Nonobstructive atherosclerosis of coronary artery (~09/2017) Surgical History History of right hip replacement (~11/2019) Hx of pelvic surgery Hx of eye surgery Hx of hysterectomy Hx of cardiac cath Family History Father CVD (cardiovascular disease) Mother No problems noted. Family/Other CVD (cardiovascular disease) Afib Brother Tumor of tongue Social History Household Members: Spouse Housing: House Alcohol intake: former Patient Tobacco Use Status: Former Tobacco user Review of Systems Const Details: - Musculoskeletal: Reports chronic, widespread pain; knee pain; ankle instability. - Neurological: Reports Parkinson's disease; restless leg syndrome. - Cardiovascular: Reports pacemaker placement; denies current cardiovascular symptoms. - Sleep: Reports insomnia, managed with Tylenol PM. Physical Exam Vital Signs: Last Vital Signs Pulse 75 01/24/25 14:19 Resp 16 01/24/25 14:19 BP 129/64 01/24/25 14:19 Pulse Ox 98 01/24/25 14:19 Oxygen Delivery Method Room Air 01/24/25 14:19 BMI result Body Mass Index 30.5 General: awake, alert, oriented. Answers questions appropriately. Fully engaged in examination. Skin: warm, dry, intact HEENT: Normocephalic. Hearing intact. Cardiac: External chest normal in appearance. Respiratory: No cough, audible wheezing or stridor. Abdomen: without gross distension. MS: No obvious swelling or deformities. Able to transition from sit to stand unassisted. Neurological: Oriented to person, place, time and situation. Thought process intact. Ambulates with the use of a cane Psychiatric: Appropriate mood and affect. Good judgment and insight. Assessment & Plan Assessment & Plan (1) Chronic pain syndrome: Code(s): G89.4 - Chronic pain syndrome Category: Medical (2) Chronic, continuous use of opioids: Code(s): F11.90 - Opioid use, unspecified, uncomplicated Category: Medical (3) Polyarthralgia: Code(s): M25.50 - Pain in unspecified joint Category: Medical Plan The patient is considering enrolling in a chronic opioid program to manage her pain more effectively. This program involves regular monitoring, including monthly visits for pill counts and random urine tests to ensure compliance. The patient is also exploring the possibility of seeing a new primary care physician, Dr. Sj Alberts, who may continue her current pain management regimen. I discussed with the patient the possibility of enrolling in a chronic opioid program, which includes monthly visits for pill counts and random urine tests to ensure compliance. She is aware that this is a multistep process, she was given a requisition to proceed with providing UDS. Understands that this must be completed tomorrow before 13:00. Follow up appointment in 2 weeks to review the UDS and go over the contracts to enroll in the chronic opioid program. Patient was informed and verbally consented to the use of an ambient scribe for clinic note documentation during this visit. Patient Instructions: - Consider enrolling in the chronic opioid program for pain management. - Follow up with Dr. Sj Alberts for potential continuation of current pain management regimen. - present to the lab tomorrow before 13:00 to provide urine drug screen - follow up in the office in 2 weeks to review uds and chronic opioid program contracts - call the office for any questions or concerns Coding Level of Care Code New Pt Level 4 (79767) Complex EM visit Add On G2211 Diagnoses Chronic pain syndrome G89.4 Chronic, continuous use of opioids F11.90 Polyarthralgia M25.50
--- OUTSIDE RECORDS SUMMARY | 2025-01-24 17:03 | XMS_ITS | Patient Health Record ---
Author Organization [facility] Address [address] [place] [address] Care Team Providers Care Medical Records Administrator Name Role Phone Coco KAUFFMAN, Jayesh Primary Care Provider Job Barone Unavailable [phone] Allergies Allergen (clinical drug ingredient) Drug/Non Drug [...] Treatment Pending Test Test Name Order Date [id number] Plate 07/04/2015 67199 I&D ABSCESS- SIMPLE,SINGLE 016 73199 I&D ABSCESS- SIMPLE,SINGLE 015 03091 I&D ABSCESS- SIMPLE,SINGLE 015 Insurance Providers Payer Name Payer Address Payer Phone Subscriber Number Group Number Insured Name Patient Relationship to Insured Coverage Start Date Coverage End Date Cigna [address] [place] [address] [id number] Annmarie Randhawa Self - patient is the insured Medical (General) History Medical History History ICD Code osteoarthritis asthma Back,Hip,and Knee pain Hiatal hernia Hypertension Reflux Sciatica Thyroid disorder Measles Chicken pox Cholesterol Surgical History Surgery Date(Month/Year) cataract surgery 01/2012 hysterectomy 03/2000 Hospitalization History Reason Date(Month/Year) [facility]- prolapse 12/26/14
== END 2025-01-24 15:47 | disposition home or self-care (01) ==
PROVIDERS: PCP Internal Medicine; Referring Provider Nurse Practitioner Family; Visit Provider Registered Nurse Emergency
DX: G89.4 Chronic pain syndrome (principal); Z79.891 Long term (current) use of opiate analgesic; M25.50 Pain in unspecified joint
CPT/HCPCS: 99204; G2211

== ENCOUNTER 2025-02-21 09:41 | Outpatient (AMB) | payer OTHER, SELFPAY ==
--- OUTSIDE RECORDS SUMMARY | 2023-04-24 | XMS_ITS | Encounter Summary ---
Author Organization [facility] Address [email or web address] [place] [address] Phone Care Team Providers Care Machine Veneer Repairer Name Role Phone Jayesh Sepulveda MD Primary Care Provider + Encounter Details Date Type Department Care Team (Late st Contact Info) Description 04/24/2023 Hospital Encounter [facility] [address] [place] [phone] Zeus Sales MD [address] [place] [phone] [email or web address] Social History Tobacco Use Types Packs/Day Years [...] Description 07/05/2025 1:10 PM EST Office Visit [facility] [address] 12th [place] [address] Lolly Siddiqui MD 243 [facility] [place] [address] [email or web address] documented as of this encounter Procedures Procedure [...] on filedocumented in this encounter Care Teams Machine Veneer Repairer Relationship Specialty Start Date End Date Jayesh Sepulveda MD [address] [place] [phone] PCP - General Internal Medicine 11/10/21 documented as of this encounter Additional Source Comments The information contained in this document represents components of the legal health record. It is not the complete legal health record.[facility]
--- NOTE | 2025-02-21 09:44 | MHC.OFFVIS ---
Vital Signs 02/21/25 09:46 Height 5 ft Weight 156 lb BMI 30.5 BP 136/63 Blood Pressure Location Rt brachial Position Sitting Respiration 16 Pulse 67 Pulse Source Pulse Oximeter Pulse Oximetry (%) 97 Oxygen Delivery Method Room Air Intake Visit Reasons: 2 Week Follow Up Intake Note: Patient here for a routine Pill Count of Hydrocodone. Per directions patient should have 34 pills. Patient presented 37 pills. Last took 8am. Popcorn Vendor Required: No Accompanied by: Self / Same As Patient Allergies Sulfa (Sulfonamide Antibiotics) Allergy (Unknown, Verified 02/21/25 09:47) vomiting sulfamethoxazole (From Bactrim) Allergy (Unknown, Verified 02/21/25 09:47) Unknown trimethoprim (From Bactrim) Allergy (Unknown, Verified 02/21/25 09:47) Unknown Iodinated Contrast Media Adverse Reaction (Verified 02/21/25 09:47) Unknown HPI Comments Details: The patient is a 79-year-old female presenting with chronic pain and chronic opioid management. She reports significant pain, particularly in her buttocks, noticed after a car ride to [place]. The patient feels her current pain medication dosage is insufficient, as it barely takes the edge off her pain. Patient is started on chronic opioid program 2 weeks ago, prescribed hydrocodone acetaminophen 5-325 mg 1 tablet twice daily as needed. Patient states her now retired PCP would prescribe her twice that dose which gave her better relief. She presented to the office today with the expectation of having 34 pills, she presented 37 pills which were counted by 2 staff members. These pills were presented in the original prescription bottle and returned to the patient after the count. She has a history of Parkinson's disease, contributing to stiffness and difficulty with mobility, especially in the mornings. The patient also has a pacemaker and experiences chronic constipation, attributed to her Parkinson's disease. The patient manages her pain by taking medication responsibly, adhering to a 12-hour schedule, and supplementing with ibuprofen when necessary. She has not experienced significant side effects from her medication. The patient actively maintains her independence and quality of life by engaging in activities such as cleaning and using a treadmill at home. She desires to enjoy life and participate in social activities, despite her chronic pain. - Onset: Pain noticed after a car ride to [place]. - Quality: Described as significant and persistent. - Location: Primarily in the buttocks. - Exacerbating factors: Physical activities such as cleaning. - Relieving factors: Pain medication, although current dosage is insufficient. - Interference: Affects daily activities such as cleaning and social participation. - Affect: Pain impacts patient's quality of life and social participation. - Analgesia: Current medication regimen includes pain pills and ibuprofen, but dosage is perceived as insufficient. - Adverse Effects: Occasional dizziness, managed by pausing activities. - Activities of Daily Living: Pain interferes with cleaning and social activities. - Aberrant Drug Related Behaviors: None reported; patient adheres to prescribed schedule. [facility] Medical History Murmur HLD (hyperlipidemia) HTN (hypertension) Nonobstructive atherosclerosis of coronary artery (~09/2017) Surgical History History of right hip replacement (~11/2019) Hx of pelvic surgery Hx of eye surgery Hx of hysterectomy Hx of cardiac cath Family History Father CVD (cardiovascular disease) Mother No problems noted. Family/Other CVD (cardiovascular disease) Afib Brother Tumor of tongue Social History Household Members: Spouse Housing: House Alcohol intake: former Patient Tobacco Use Status: Former Tobacco user Review of Systems Const Details: - Musculoskeletal: Reports significant pain in buttocks, stiffness, and difficulty with mobility. - Neurological: Reports occasional dizziness, no falls reported. - Gastrointestinal: Reports chronic constipation. Physical Exam Exam Exam: General: awake, alert, oriented. Answers questions appropriately. Fully engaged in examination. Skin: warm, dry, intact HEENT: Normocephalic. Hearing intact. Cardiac: External chest normal in appearance. Respiratory: No cough, audible wheezing or stridor. Abdomen: without gross distension. MS: No obvious swelling or deformities. Able to transition from sit to stand unassisted. Neurological: Oriented to person, place, time and situation. Thought process intact. Ambulates with the use of a cane Psychiatric: Appropriate mood and affect. Good judgment and insight. Vital Signs: Last Vital Signs Pulse 67 02/21/25 09:46 Resp 16 02/21/25 09:46 BP 136/63 02/21/25 09:46 Pulse Ox 97 02/21/25 09:46 Oxygen Delivery Method Room Air 02/21/25 09:46 BMI result Body Mass Index 30.5 Assessment & Plan Assessment & Plan (1) Chronic pain syndrome: Code(s): G89.4 - Chronic pain syndrome Category: Medical (2) Chronic, continuous use of opioids: Code(s): F11.90 - Opioid use, unspecified, uncomplicated Category: Medical (3) Polyarthralgia: Code(s): M25.50 - Pain in unspecified joint Category: Medical Plan The patient will continue her current pain management regimen, with a plan to increase the dosage to hydrocodone-acetaminophen 10/325 mg twice daily once the current prescription is completed. She is advised to continue taking ibuprofen as needed for additional pain relief, while monitoring for any adverse effects. A follow-up appointment is scheduled in four weeks to assess the effectiveness of the new dosage and to perform a pill count. The patient is encouraged to maintain her current level of physical activity, including using the treadmill and engaging in household activities, to support her overall well-being. She is also advised to monitor her symptoms and report any significant changes or side effects from the medication. MANAGER ORACLE was reviewed without concerns. Patient was informed and verbally consented to the use of an ambient scribe for clinic note documentation during this visit. Medications: New hydrocodone-acetaminophen 10-325 mg Partial Fill upon patient request. 1 tab PO BID PRN 60 tabs 0RF pain Discontinued hydrocodone-acetaminophen 5-325 mg Partial Fill upon patient request. Discontinued Reason: Doctor's Order 1 tab PO BID 30 days PRN 60 tabs 0RF pain Patient Instructions: - Continue current pain medication regimen until the prescription ends. - Start new dosage of hydrocodone-acetaminophen 10/325 mg twice daily after current prescription ends. - Take ibuprofen as needed for additional pain relief. - Monitor for any side effects and report significant changes. - Maintain current level of physical activity, including treadmill use and household activities. - Attend follow-up appointment in four weeks for evaluation and pill count. Coding Level of Care Code Est Pt Level 4 (68775) Complex EM visit Add On G2211 Diagnoses Chronic pain syndrome G89.4 Chronic, continuous use of opioids F11.90 Polyarthralgia M25.50
[2025-02-21 09:46] VITALS: BP 136/63; PULSE 67; RESP 16; O2SAT 97; BMI 30.5
--- OUTSIDE RECORDS SUMMARY | 2025-02-21 10:15 | XMS_ITS | Patient Health Record ---
Author Organization [facility] Address [address] [place] [address] Care Team Providers Care Material Handling Equipment Stevedore Name Role Phone Coco KAUFFMAN, Jayesh Primary Care Provider Job Barone Unavailable [phone] Allergies Allergen (clinical drug ingredient) Drug/Non Drug Allergy documented on EMR Reaction Allergy Type Onset Date Status cats, dogs, pollen (uncoded) Unknown Allergy Active sulfa nausea and vomiting Drug Allergy Active Reason For Referral No Information Medications Medication SIG (Take, Route, Frequency, Duration) Notes Start Date End Date Status amLODIPine Besylate 5 MG Oral; Duration: 90 Unknown Cephalexin 500 MG 1 capsule Orally gayathri ry 12 hrs; Duration: 10 day(s) Unknown Vitamin D 2000 UNIT Orally 02/28/2015 Unknown Valsartan-hydroCHLOROthiazi de 80-12.5 MG Oral; Duration: 90 Unknown Pravastatin Sodium 40 MG Oral; Duration: 90 Unknown Levothyroxine Sodium 25 MCG Oral; Duration: 90 Unknown Famotidine 20 MG 1 tablet Orally day 02/28/2015 Unknown Estradiol 0.0375 MG/24HR Transdermal; Du ration: 28 Unknown Diclofenac Sodium 75 MG Oral; Duration: 90 Unknown Social History Tobacco use other than smoking: Question Answer Notes Are you an other tobacco user? No Problems No Known Problems Plan Of Treatment Pending Test Test Name Order Date [id number] Plate 07/04/2015 [id number] I&D ABSCESS- SIMPLE,SINGLE 016 [id number] I&D ABSCESS- SIMPLE,SINGLE 015 09311 I&D ABSCESS- SIMPLE,SINGLE 015 Insurance Providers Payer Name Payer Address Payer Phone Subscriber Number Group Number Insured Name Patient Relationship to Insured Coverage Start Date Coverage End Date Joey [address] [place] [phone] [id number] Annmarie Randhawa Self - patient is the insured Medical (General) History Medical History History ICD Code osteoarthritis asthma Back,Hip,and Knee pain Hiatal hernia Hypertension Reflux Sciatica Thyroid disorder Measles Chicken pox Cholesterol Surgical History Surgery Date(Month/Year) cataract surgery 01/2012 hysterectomy 03/2000 Hospitalization History Reason Date(Month/Year) [facility]- prolapse 12/26/14
== END 2025-02-21 10:17 | disposition home or self-care (01) ==
LOC: HO.PMC 09:42
PROVIDERS: PCP Internal Medicine; Visit Provider Registered Nurse Emergency
DX: G89.4 Chronic pain syndrome (principal); Z79.891 Long term (current) use of opiate analgesic; M25.50 Pain in unspecified joint
CPT/HCPCS: 99214; G2211

== ENCOUNTER 2025-03-21 14:11 | Outpatient (AMB) | payer OTHER, SELFPAY ==
--- OUTSIDE RECORDS SUMMARY | 2023-04-24 | XMS_ITS | Encounter Summary ---
Author Organization [facility] Address [address] [place] [address] Phone Care Team Providers Care Needle Board Repairer Name Role Phone Jayesh Sepulveda MD Primary Care Provider + Encounter Details Date Type Department Care Team (Late st Contact Info) Description 04/24/2023 Hospital Encounter [facility] [address] [place] [phone] Zeus Sales MD [address] [place] [phone] [email or web address] Social History Tobacco Use Types Packs/Day [...] Description 07/05/2025 1:10 PM EST Office Visit [facility] [address] 12[address] [place] [address] Lolly Siddiqui MD [address] [facility] [place] [address] [email or web address] documented as of this encounter Procedures [...] on filedocumented in this encounter Care Teams Needle Board Repairer Relationship Specialty Start Date End Date Jayesh Sepulveda MD [address] [place] [phone] PCP - General Internal Medicine 11/10/21 documented as of this encounter Additional Source Comments The information contained in this document represents components of the legal health record. It is not the complete legal health record.[facility]
--- NOTE | 2025-03-21 14:14 | A.OFFVIS_ITS ---
Vital Signs 03/21/25 14:16 Height 5 ft Weight 155 lb BMI 30.3 BP 136/60 Blood Pressure Location Rt brachial Position Sitting Respiration 16 Pulse 69 Pulse Source Pulse Oximeter Pulse Oximetry (%) 96 Oxygen Delivery Method Room Air Intake Visit Reasons: PILL COUNT Intake Note: Patient here for a pill count routine for Hydrocodone. per direction patient should have 44 pills. Patient presented 60 pills. Last took 8am. Accompanied by: Life Partner Allergies Sulfa (Sulfonamide Antibiotics) Allergy (Unknown, Verified 03/21/25 14:25) vomiting sulfamethoxazole (From Bactrim) Allergy (Unknown, Verified 03/21/25 14:25) Unknown trimethoprim (From Bactrim) Allergy (Unknown, Verified 03/21/25 14:25) Unknown Iodinated Contrast Media Adverse Reaction (Verified 03/21/25 14:25) Unknown HPI Comments Details: Annmarie presents to the office today, accompanied by her , for follow up chronic pain and chronic opioid therapy management. Patient is prescribed hydrocodone acetaminophen 10-325mg take 1 tablet twice a day. Patient arrived today with the expectation of having 44 pills, she presented 60 pills which were counted in the presence of two staff members and returned to the patient in the original prescription bottle. This demonstrates responsible attitude toward patient's opioid medications. Pain is reported today as 8/10 and last dose of pain medication was taken at 8:00 this morning. Dose was increased at last visit. She is just transitioning to the new dose therefore she is unsure if her pain will be better controlled with the 10 mg tablets. This will be discussed again at next visit. Patient denies side effects including somnolence, constipation, itching, dyspnea, rash, dizziness or weakness. Prior: The patient is a 79-year-old female presenting with chronic pain and chronic opioid management. She reports significant pain, particularly in her buttocks, noticed after a car ride to [place]. The patient feels her current pain medication dosage is insufficient, as it barely takes the edge off her pain. Patient is started on chronic opioid program 2 weeks ago, prescribed hydrocodone acetaminophen 5-325 mg 1 tablet twice daily as needed. Patient states her now retired PCP would prescribe her twice that dose which gave her better relief. She presented to the office today with the expectation of having 34 pills, she presented 37 pills which were counted by 2 staff members. These pills were presented in the original prescription bottle and returned to the patient after the count. She has a history of Parkinson's disease, contributing to stiffness and difficulty with mobility, especially in the mornings. The patient also has a pacemaker and experiences chronic constipation, attributed to her Parkinson's disease. The patient manages her pain by taking medication responsibly, adhering to a 12- hour schedule, and supplementing with ibuprofen when necessary. She has not experienced significant side effects from her medication. The patient actively maintains her independence and quality of life by engaging in activities such as cleaning and using a treadmill at home. She desires to enjoy life and participate in social activities, despite her chronic pain. - Onset: Pain noticed after a car ride to [place]. - Quality: Described as significant and persistent. - Location: Primarily in the buttocks. - Exacerbating factors: Physical activities such as cleaning. - Relieving factors: Pain medication, although current dosage is insufficient. - Interference: Affects daily activities such as cleaning and social participation. - Affect: Pain impacts patient's quality of life and social participation. - Analgesia: Current medication regimen includes pain pills and ibuprofen, but dosage is perceived as insufficient. - Adverse Effects: Occasional dizziness, managed by pausing activities. - Activities of Daily Living: Pain interferes with cleaning and social activities. - Aberrant Drug Related Behaviors: None reported; patient adheres to prescribed schedule. [facility] Medical History Murmur HLD (hyperlipidemia) HTN (hypertension) Nonobstructive atherosclerosis of coronary artery (~09/2017) Surgical History History of right hip replacement (~11/2019) Hx of pelvic surgery Hx of eye surgery Hx of hysterectomy Hx of cardiac cath Family History Father CVD (cardiovascular disease) Mother No problems noted. Family/Other CVD (cardiovascular disease) Afib Brother Tumor of tongue Social History Household Members: Spouse Housing: House Alcohol intake: former Patient Tobacco Use Status: Former Tobacco user Review of Systems Const All systems reviewed & are unremarkable except as noted in HPI and below Physical Exam Exam Exam: General: awake, alert, oriented. Answers questions appropriately. Fully engaged in examination. Skin: warm, dry, intact HEENT: Normocephalic. Hearing intact. Cardiac: External chest normal in appearance. Respiratory: No cough, audible wheezing or stridor. Abdomen: without gross distension. MS: No obvious swelling or deformities. Able to transition from sit to stand unassisted. Neurological: Oriented to person, place, time and situation. Thought process intact. Ambulates with the use of a cane Psychiatric: Appropriate mood and affect. Good judgment and insight. Vital Signs: Last Vital Signs Pulse 69 03/21/25 14:16 Resp 16 03/21/25 14:16 BP 136/60 03/21/25 14:16 Pulse Ox 96 03/21/25 14:16 Oxygen Delivery Method Room Air 03/21/25 14:16 BMI result Body Mass Index 30.3 Assessment & Plan Assessment & Plan (1) Chronic pain syndrome: Code(s): G89.4 - Chronic pain syndrome Category: Medical (2) Chronic, continuous use of opioids: Code(s): F11.90 - Opioid use, unspecified, uncomplicated Category: Medical (3) Polyarthralgia: Code(s): M25.50 - Pain in unspecified joint Category: Medical Plan Masspat was reviewed and without concerns. No obvious signs of diversion, abuse or misuse of the opioid medications. Will send in prescription for hydrocodone/acetaminophen 10-325 mg BID with an advanced date Patient to follow-up in the office in 1 month, sooner if needed. All questions and concerns have been answered and patient agrees with the plan. Medications: Refilled hydrocodone-acetaminophen 10-325 mg Partial Fill upon patient request. 1 tab PO BID PRN 60 tabs 0RF pain Coding Level of Care Code Est Pt Level 3 (01128) Complex EM visit Add On G2211 Diagnoses Chronic pain syndrome G89.4 Chronic, continuous use of opioids F11.90 Polyarthralgia M25.50
[2025-03-21 14:16] VITALS: BP 136/60; PULSE 69; RESP 16; O2SAT 96; BMI 30.3
--- OUTSIDE RECORDS SUMMARY | 2025-03-21 15:08 | XMS_ITS | Patient Health Record ---
Author Organization [facility] Address [address] [place] [address] Care Team Providers Care Batch Records Clerk Name Role Phone Coco KAUFFMAN, Jayesh Primary Care Provider Job Barone Unavailable [phone] Allergies Allergen (clinical drug ingredient) Drug/Non Drug [...] Treatment Pending Test Test Name Order Date [id number] Plate 07/04/2015 [id number] I&D ABSCESS- SIMPLE,SINGLE 016 [id number] I&D ABSCESS- SIMPLE,SINGLE 015 51956 I&D ABSCESS- SIMPLE,SINGLE 015 Insurance Providers Payer Name Payer Address Payer Phone Subscriber Number Group Number Insured Name Patient Relationship to Insured Coverage Start Date Coverage End Date Joey [address] [place] [phone] [id number] Annmarie Randhawa Self - patient is the insured Medical (General) History Medical History History ICD Code osteoarthritis asthma Back,Hip,and Knee pain Hiatal hernia Hypertension Reflux Sciatica Thyroid disorder Measles Chicken pox Cholesterol Surgical History Surgery Date(Month/Year) cataract surgery 01/2012 hysterectomy 03/2000 Hospitalization History Reason Date(Month/Year) [facility]- prolapse 12/26/14
== END 2025-03-21 14:43 | disposition home or self-care (01) ==
LOC: HO.PMC 14:12
PROVIDERS: PCP Internal Medicine; Visit Provider Registered Nurse Emergency
DX: G89.4 Chronic pain syndrome (principal); M25.50 Pain in unspecified joint; Z79.891 Long term (current) use of opiate analgesic
CPT/HCPCS: 99213; G2211

== ENCOUNTER → 2025-03-28 23:59 | Outpatient (BNV) | payer OTHER, SELFPAY ==
--- NOTE | 2025-04-04 15:16 | MHC.OFFVIS ---
Intake Visit Reasons: Remote device check- medtronic Allergies Sulfa (Sulfonamide Antibiotics) Allergy (Unknown, Verified 03/21/25 14:25) vomiting sulfamethoxazole (From Bactrim) Allergy (Unknown, Verified 03/21/25 14:25) Unknown trimethoprim (From Bactrim) Allergy (Unknown, Verified 03/21/25 14:25) Unknown Iodinated Contrast Media Adverse Reaction (Verified 03/21/25 14:25) Unknown PFSH Medical History Murmur HLD (hyperlipidemia) HTN (hypertension) Nonobstructive atherosclerosis of coronary artery (~09/2017) Surgical History History of right hip replacement (~11/2019) Hx of pelvic surgery Hx of eye surgery Hx of hysterectomy Hx of cardiac cath Family History Father CVD (cardiovascular disease) Mother No problems noted. Family/Other CVD (cardiovascular disease) Afib Brother Tumor of tongue Social History Household Members: Spouse Housing: House Alcohol intake: former Patient Tobacco Use Status: Former Tobacco user Office Procedures Cardiac Device Check Cardiac Device Check Details: Remote pacemaker report generated 03/28/2025. Pacemaker function is adequate [id number] Cardiac Device Interrogation, pacemaker Procedure code (CPT) selection complete Assessment & Plan Assessment & Plan (1) Pacemaker: Code(s): Z95.0 - Presence of cardiac pacemaker Category: Medical Plan: See above Coding Level of Care Code Procedure Only Diagnoses Pacemaker Z95.0 CPT Codes Cardiac Device Check - Cardiac Device 12: [id number] Cardiac Device Interrogation, pacemaker ([id number])
== END ==
PROVIDERS: PCP Internal Medicine; Visit Provider Internal Medicine Cardiovascular Disease
DX: Z45.018 Encounter for adjustment and management of other part of cardiac pacemaker (principal)
CPT/HCPCS: 93294

== ENCOUNTER 2025-05-18 13:00 | Outpatient (AMB) | payer OTHER, SELFPAY ==
--- OUTSIDE RECORDS SUMMARY | 2021-07-14 01:00 | XMS_ITS | Encounter Summary ---
Author Organization [facility] Address [address] [place] [address] Phone Care Team Providers Care Factory Helper Name Role Phone Unavailable Primary Care Provider Unavailabl e Encounter Details Date Type Department Care Team ([facility] Contact Info) Description 07/14/2021 Hospital Encounter [facility] [address] [place] [phone] Zeus Sales MD [address] [place] [phone] Jessa@[email or web address] Social History Tobacco Use Types Packs/Day Years [...] Description 07/05/2025 1:10 PM EST Office Visit [facility] [address] [facility] 12th [place] [address] Lolly Siddiqui MD [address] [place] [address] [email or web address] documented as of this encounter Procedures Procedure [...] It is not the complete legal health record.[facility]
--- OUTSIDE RECORDS SUMMARY | 2023-04-24 | XMS_ITS | Encounter Summary ---
Author Organization [facility] Address [address] [place] [phone] Phone Care Team Providers Care Full Stack Php Developer Name Role Phone Jayesh Sepulveda MD Primary Care Provider + Encounter Details Date Type Department Care Team (Late st Contact Info) Description 04/24/2023 Hospital Encounter [facility] [address] [place] [address] Zeus aSles MD [address] [place] [phone] [email or web address] Social History Tobacco Use Types Packs/Day [...] Description 07/05/2025 1:10 PM EST Office Visit [facility] [address] [facility] 12th [place] [address] Lolly Siddiqui MD [address] [place] [address] [email or web address] documented as of this encounter Procedures [...] on filedocumented in this encounter Care Teams Full Stack Php Developer Relationship Specialty Start Date End Date Jayesh Sepulveda MD [address] [place] [phone] PCP - General Internal Medicine 11/10/21 documented as of this encounter Additional Source Comments The information contained in this document represents components of the legal health record. It is not the complete legal health record.[facility]
--- NOTE | 2025-05-18 13:02 | A.OFFVIS_ITS ---
Vital Signs 05/18/25 13:03 Height 5 ft Weight 155 lb BMI 30.3 BP 137/63 Blood Pressure Location Rt brachial Position Sitting Respiration 16 Pulse 67 Pulse Source Pulse Oximeter Pulse Oximetry (%) 98 Oxygen Delivery Method Room Air Intake Visit Reasons: PILL COUNT Intake Note: Patient here for a pill count routine of Hydrocodone-acetamin. Per directions patient should have 0 pills. Patient presented 10 pills. Last took 7am. Instructional Designer Required: No Accompanied by: Self / Same As Patient Allergies Sulfa (Sulfonamide Antibiotics) Allergy (Unknown, Verified 05/18/25 13:03) vomiting sulfamethoxazole (From Bactrim) Allergy (Unknown, Verified 05/18/25 13:03) Unknown trimethoprim (From Bactrim) Allergy (Unknown, Verified 05/18/25 13:03) Unknown Iodinated Contrast Media Adverse Reaction (Verified 05/18/25 13:03) Unknown HPI Comments Details: Annmarie presents to the office today for follow up chronic pain and chronic opioid therapy management. Patient is prescribed hydrocodone acetaminophen 10-325mg take 1 tablet twice a day. Patient arrived today with the expectation of having 0 pills, she presented 10 pills which were counted in the presence of two staff members and returned to the patient in the original prescription bottle. This demonstrates responsible attitude toward patient's opioid medications. Last dose of pain medication was taken at 8:00 this morning. Patient denies side effects including somnolence, constipation, itching, dyspnea, rash. She has been suffering with increased pain over right GTB, interested in receiving a steroid injection for this. - Onset: Chronic pain with worsening tremors - Quality: Pain in the hand and right knee, tenderness over the greater trochanter bursa - Location: Hand, right knee, greater trochanter bursa - Radiation: Pain does not radiate - Exacerbating factors: Activities such as cleaning, getting in and out of the car - Relieving factors: Use of hydrocodone, lidocaine, and rest - Interference: Pain interferes with daily activities and increases fall risk - Affect: Pain impacts daily activities and increases fall risk - Analgesia: Uses hydrocodone and lidocaine for pain relief - Adverse Effects: Dizziness from Carbidopa-Levodopa - Activities of Daily Living: Pain interferes with cleaning and mobility - Aberrant Drug Related Behaviors: None reported [facility] Medical History Murmur HLD (hyperlipidemia) HTN (hypertension) Nonobstructive atherosclerosis of coronary artery (~09/2017) Surgical History History of right hip replacement (~11/2019) Hx of pelvic surgery Hx of eye surgery Hx of hysterectomy Hx of cardiac cath Family History Father CVD (cardiovascular disease) Mother No problems noted. Family/Other CVD (cardiovascular disease) Afib Brother Tumor of tongue Social History Household Members: Spouse Housing: House Alcohol intake: former Patient Tobacco Use Status: Former Tobacco user Review of Systems Const Details: - Musculoskeletal: Reports pain in hand, right knee, and tenderness over greater trochanter bursa - Cardiovascular: Denies use of blood thinners, history of heart attacks, and presence of pacemaker Physical Exam Exam Exam: General: awake, alert, oriented. Answers questions appropriately. Fully engaged in examination. Skin: warm, dry, intact HEENT: Normocephalic. Hearing intact. Cardiac: External chest normal in appearance. Respiratory: No cough, audible wheezing or stridor. Abdomen: without gross distension. MS: No obvious swelling or deformities. Able to transition from sit to stand unassisted. Tenderness to palpation over right GTB Neurological: Oriented to person, place, time and situation. Thought process intact. Ambulates with the use of a cane Psychiatric: Appropriate mood and affect. Good judgment and insight. Vital Signs: Last Vital Signs Pulse 67 05/18/25 13:03 Resp 16 05/18/25 13:03 BP 137/63 05/18/25 13:03 Pulse Ox 98 05/18/25 13:03 Oxygen Delivery Method Room Air 05/18/25 13:03 BMI result Body Mass Index 30.3 Assessment & Plan Assessment & Plan (1) Chronic pain syndrome: Code(s): G89.4 - Chronic pain syndrome Category: Medical (2) Chronic, continuous use of opioids: Code(s): F11.90 - Opioid use, unspecified, uncomplicated Category: Medical (3) Polyarthralgia: Code(s): M25.50 - Pain in unspecified joint Category: Medical (4) Greater trochanteric bursitis: Code(s): M70.60 - Trochanteric bursitis, unspecified hip Category: Medical Plan Masso[place] was reviewed and without concerns. No obvious signs of diversion, abuse or misuse of the opioid medications. Will send in prescription for hydrocodone/acetaminophen 10-325 mg BID with an advanced date The patient was advised to consider a steroid injection for pain management, particularly for the bursitis, which could provide relief over a few months. It was discussed that the injection could be administered today if the patient wishes to wait or she can return for a follow-up visit, allowing time for preparation and ensuring the presence of a family member for support. The potential benefits and risks of steroid injections were explained, including the possibility of increased risk for osteoporosis with frequent use. The patient was also informed about the need for imaging before considering an epidural injection near the spine, due to the associated risks and the requirement for updated MRI results. The plan includes scheduling a follow-up appointment to assess the effectiveness of the initial injection and to discuss further management options. Patient was informed and verbally consented to the use of an ambient scribe for clinic note documentation during this visit. Medications: Refilled hydrocodone-acetaminophen 10-325 mg Partial Fill upon patient request. 1 tab PO BID PRN 60 tabs 0RF pain Patient Instructions: - Schedule a follow-up appointment for a steroid injection for GTB. - Ensure a family member is present during the procedure for support. - Discuss with your neurologist about the hand stiffness and tremors. - Continue using hydrocodone and lidocaine as needed for pain relief. - Avoid activities that exacerbate pain, such as excessive cleaning or movements that strain the knee. Coding Level of Care Code Est Pt Level 3 (37887) Complex EM visit Add On G2211 Diagnoses Chronic pain syndrome G89.4 Chronic, continuous use of opioids F11.90 Polyarthralgia M25.50 Greater trochanteric bursitis M70.60
[2025-05-18 13:03] VITALS: BP 137/63; PULSE 67; RESP 16; O2SAT 98; BMI 30.3
--- OUTSIDE RECORDS SUMMARY | 2025-05-18 15:18 | XMS_ITS | Patient Health Record ---
Author Organization [facility] Address [address] [place] [address] Care Team Providers Care Manager Of Compensation Name Role Phone Coco KAUFFMAN, Jayesh Primary Care Provider Job Barone Unavailable [phone] Allergies Allergen (clinical drug ingredient) Drug/Non Drug [...] Treatment Pending Test Test Name Order Date [id number] Plate 07/04/2015 [id number] I&D ABSCESS- SIMPLE,SINGLE 016 38270 I&D ABSCESS- SIMPLE,SINGLE 015 69780 I&D ABSCESS- SIMPLE,SINGLE 015 Insurance Providers Payer Name Payer Address Payer Phone Subscriber Number Group Number Insured Name Patient Relationship to Insured Coverage Start Date Coverage End Date Joey [address] [place] [phone] [id number] Annmarie Randhawa Self - patient is the insured Medical (General) History Medical History History ICD Code osteoarthritis asthma Back,Hip,and Knee pain Hiatal hernia Hypertension Reflux Sciatica Thyroid disorder Measles Chicken pox Cholesterol Surgical History Surgery Date(Month/Year) cataract surgery 01/2012 hysterectomy 03/2000 Hospitalization History Reason Date(Month/Year) [facility]- prolapse 12/26/14
--- OUTSIDE RECORDS SUMMARY | 2025-05-18 15:22 | XMS_ITS | Clinical Summary ---
Author Organization [facility] Address [address] [facility] [address] [place] [id number] Phone Care Team Providers Care Lumber Material Handler Name Role Phone Jayesh Sepulveda MD Primary Care Provider + Allergies Active Allergy Reactions Criticality Noted Date Comments Nickel Rash Low 02/03/2022 Oxycodone-Acetaminophen Nausea and/or Vomiting 02/03/2022 Sulfamethoxazole-Trimethoprim Vomiting,Unknown Medium 08/22/2013 Medications amLODIPine (NORVASC) 5 MG tablet 5 mg daily. 2 Active atorvastatin (LIPITOR) 80 MG tablet Take 80 mg by mouth daily. 2 Active VITAMIN D3 50 mcg (2,000 unit) capsule Take 2,000 Units by mouth daily. 2 Active DULoxetine (CYMBALTA) 60 MG capsule Take 60 mg by mouth continuous prn. 2 Active diclofenac sodium (VOLTAREN) 1 % Gel Apply 2 g topically. 1 Active HYDROcodone-deni taminophen (NORCO 10-325) 10-325 mg per tablet as needed. 2 Active EUTHYROX 25 mcg tablet 2 Active losartan (COZAAR) 50 MG tablet Take 50 mg by mouth daily. 2 Active vitamin E 1000 UNIT capsule Take 1,000 Units by mouth daily. Active cyanocobalamin, vitamin B-12, 1000 MCG tablet Take 1,000 mcg by mouth daily. Active calcium carbonate (TUMS ORAL) Take by mouth. Activ e ascorbic acid (VITAMIN C ORAL) Take by mouth. Activ e gabapentin (NEURONTIN) 100 MG capsule TAKE 1 TO 3 CAPSULES BY MOUTH EVERY DAY AT BEDTIME FOR 30 DAYS 5 Active atorvastatin (LIPITOR) 80 MG tablet Take 1 tablet by mouth. 3 Active levothyroxine (SYNTHROID,LEVO THROID) 25 MCG tablet Take 1 tablet by mouth. 3 Active HYDROcodone-deni taminophen (NORCO 10-325) 10-325 mg per tablet Take by mouth. 4 Active aspirin 81 MG EC tablet Take 1 tablet by mouth. Active Active Problems Problem Noted Date Diagnosed Date Arthritis 06/23/2011 Overview (09/22/2014): Arthritis Uncoded disc disease 06/23/2011 Overview (09/22/2014): disc disease Hypertensive disorder 06/23/2011 Overview (09/22/2014): Hypertension Chronic obstructive pulmonary disease 06/23/2011 Overview (09/22/2014): Chronic obstructive lung disease Myopic degeneration 06/23/2011 Overview (09/22/2014): Myopic degeneration Hay fever 08/05/2010 Overview (10/19/2017): hay fever;PHS Allergy Remediation Family History Medical History Relation Comments Hypertension Father hypertension Uncoded Family History Father cardiac Cataracts Mother cataract; blind after cataract surgery Diabetes Mother diabetes mellitu s Hypertension Mother hypertension Relation Status Comments Father Mother Social History Tobacco Use Types Packs/Day Years Used Date Smoking Tobacco: Former Cigarettes Smokeless Tobacco: Never Tobacco Cessation:Counseling Given: Not Answered Alcohol Use Standard Drinks/Week Comments Yes 0 [...] Orientation Straight 11/10/2021 2: 53 PM EDT Last Filed Vital Signs Vital Sign Reading Time Taken Comments Blood Pressure 145/76 06/23/2011 1:11 PM EST Pulse 84 06/23/2011 1:11 PM EST Temperature - - Respiratory Rate - - Oxygen Saturation - - Inhaled Oxygen Concentration - - Weight 83 kg (183 lb) 06/23/2011 1:11 PM EST Height 160 cm (5' 3 ) 06/23/2011 1:11 PM EST Body Mass Index 32.42 06/23/2011 1:11 PM EST Plan of Treatment Upcoming Encounters Date Type Department Care Team (Late st Contact Info) Description 07/05/2025 1:10 PM EST Office Visit [facility] [address] [facility] 12th [place] [address] Lolly Siddiqui MD [address] [place] [id number] [email or web address] Health Maintenance Due Date Last Done Comments Adult Td,Tdap Booster 1946 BLOOD PRESSURE 1946 CREATININE LEVEL 1946 LIPID PANEL 1946 POTASSIUM LEVEL 1946 TSH LEVEL 1946 DEPRESSION SCREENING 1958 SMOKING Hx and SMOKELESS TOBACCO SCREENING 12/30/1959 HEPATITIS C SCREENING 1964 OSTEOPOROSIS SCREENING INITIAL (ONE-TIME) 12/30/2011 PNEUMOCOCCAL VACCINES (50+ years) (2 of 2 - PPSV23) 02/03/2015 12/09/2014 ZOSTER VACCINES (3 of 3) 07/01/2018 05/06/2018, 0609/2013 RSV VACCINE (1 - 1-dose 75+ series) 2021 INFLUENZA VACCINE (#1) 2025 , 05/28/2020, 07/17/2019, Additional history exists COVID-19 VACCINE ( season) 2025 05/17/2021, 11/14/2020, 10/24/2020 HEPATITIS A VACCINES Aged Out 04/20/2019, 02/22/20 19 No longer eligible based on patient's age to complete this topic HIB VACCINES Aged Out No longer eligi ble based on patient's age to complete this topic MENINGOCOCCAL VACCINES (ACWY) Aged Out No longer eligible based on patient's age to complete this topic MENINGOCOCCAL VACCINES (B) Aged Out N o longer eligible based on patient's age to complete this topic Medical Devices Not on file [facility] E[facility] POS EPO [facility] POS EPO [facility] POS EPO [facility] POS EPO Care Teams Lumber Material Handler Relationship Specialty Start Date End Date Jayesh Sepulveda MD [address] [place] [phone] PCP - General Internal Medicine 11/10/21 Additional Source Comments The information contained in this document represents components of the legal health record. It is not the complete legal health record.[facility]
== END 2025-05-18 13:40 | disposition home or self-care (01) ==
LOC: HO.PMC 13:00
PROVIDERS: PCP Internal Medicine; Visit Provider Registered Nurse Emergency
DX: G89.4 Chronic pain syndrome (principal); Z79.891 Long term (current) use of opiate analgesic; M25.50 Pain in unspecified joint; M70.60 Trochanteric bursitis, unspecified hip
CPT/HCPCS: 99213; G2211

== ENCOUNTER 2025-05-24 13:22 | Outpatient (AMB) | payer OTHER, SELFPAY ==
--- OUTSIDE RECORDS SUMMARY | 2021-07-14 01:00 | XMS_ITS | Encounter Summary ---
Author Organization [facility] Address [address] [facility] [address] [place] [address] Phone Care Team Providers Care Squirrel Man Name Role Phone Unavailable Primary Care Provider Unavailabl e Encounter Details Date Type Department Care Team ([facility] Contact Info) Description 07/14/2021 Hospital Encounter [facility] OUT[facility] [address] [place] [phone] Zeus Sales MD [address] [place] [address] [email or web address] Social History Tobacco Use Types Packs/Day Years [...] 07/05/2025 1:10 PM EST Office Visit [facility] [address] [facility] 12th [place] [address] Lolly Siddiqui MD [address] [place] [address] [email or web address] documented as of this encounter Procedures Procedure [...] It is not the complete legal health record.[facility]
--- OUTSIDE RECORDS SUMMARY | 2023-04-24 | XMS_ITS | Encounter Summary ---
Author Organization [facility] Address [address] [place] [phone] Phone Care Team Providers Care Combat Systems Operator Name Role Phone Jayesh Sepulveda MD Primary Care Provider + Encounter Details Date Type Department Care Team (Late st Contact Info) Description 04/24/2023 Hospital Encounter [facility] [address] [place] [address] Zeus Sales MD [address] [place] [phone] [email or web address] Social History Tobacco Use Types Packs/Day [...] Description 07/05/2025 1:10 PM EST Office Visit [facility] [address] [facility] 12th [place] [address] Lolly Siddiqui MD [address] [place] [address] [email or web address] documented as of this encounter Procedures [...] on filedocumented in this encounter Care Teams Combat Systems Operator Relationship Specialty Start Date End Date Jayesh Sepulveda MD [address] [place] [phone] PCP - General Internal Medicine 11/10/21 documented as of this encounter Additional Source Comments The information contained in this document represents components of the legal health record. It is not the complete legal health record.[facility]
[2025-05-24 13:53] VITALS: BP 136/60; PULSE 67; RESP 16; O2SAT 97; BMI 30.3
--- NOTE | 2025-05-24 13:53 | MHC.OFFVIS ---
Vital Signs 05/24/25 13:53 Height 5 ft Weight 155 lb BMI 30.3 BP 136/60 Blood Pressure Location Rt brachial Position Sitting Respiration 16 Pulse 67 Pulse Source Pulse Oximeter Pulse Oximetry (%) 97 Oxygen Delivery Method Room Air Intake Visit Reasons: RIGHT GTB INJECTION [employer] Grade Teacher Required: No Accompanied by: Self / Same As Patient Allergies Sulfa (Sulfonamide Antibiotics) Allergy (Unknown, Verified 05/24/25 13:53) vomiting sulfamethoxazole (From Bactrim) Allergy (Unknown, Verified 05/24/25 13:53) Unknown trimethoprim (From Bactrim) Allergy (Unknown, Verified 05/24/25 13:53) Unknown Iodinated Contrast Media Adverse Reaction (Verified 05/24/25 13:53) Unknown HPI Comments Details: Annmarie presents to the office today to receive great trochanteric bursa on the right injection. See description of the injection as below. Risks and benefits were explained to the patient. Risks of the iatrogenic diabetes, elevated high blood pressure and risk of osteoporosis were explained to the patient. Patient expressed understanding. She was asking multiple questions. She is also complaining on inability to lift right arm above the shoulder line. She reports pain in the left arm. She wants a referral to the Orthopedic surgery. I will refer her to Dr. Rahman. She has been suffering with increased pain over right GTB, interested in receiving a steroid injection for this. - Onset: Chronic pain with worsening tremors - Quality: Pain in the hand and right knee, tenderness over the greater trochanter bursa - Location: Hand, right knee, greater trochanter bursa - Radiation: Pain does not radiate - Exacerbating factors: Activities such as cleaning, getting in and out of the car - Relieving factors: Use of hydrocodone, lidocaine, and rest - Interference: Pain interferes with daily activities and increases fall risk - Affect: Pain impacts daily activities and increases fall risk - Analgesia: Uses hydrocodone and lidocaine for pain relief - Adverse Effects: Dizziness from Carbidopa-Levodopa - Activities of Daily Living: Pain interferes with cleaning and mobility - Aberrant Drug Related Behaviors: None reported [facility] Medical History Murmur HLD (hyperlipidemia) HTN (hypertension) Nonobstructive atherosclerosis of coronary artery (~09/2017) Surgical History History of right hip replacement (~11/2019) Hx of pelvic surgery Hx of eye surgery Hx of hysterectomy Hx of cardiac cath Family History Father CVD (cardiovascular disease) Mother No problems noted. Family/Other CVD (cardiovascular disease) Afib Brother Tumor of tongue Social History Household Members: Spouse Housing: House Alcohol intake: former Patient Tobacco Use Status: Former Tobacco user Physical Exam Exam Exam: General: awake, alert, oriented. Answers questions appropriately. Fully engaged in examination. Skin: warm, dry, intact HEENT: Normocephalic. Hearing intact. Cardiac: External chest normal in appearance. Respiratory: No cough, audible wheezing or stridor. Abdomen: without gross distension. MS: No obvious swelling or deformities. Able to transition from sit to stand unassisted. Tenderness to palpation over right GTB Neurological: Oriented to person, place, time and situation. Thought process intact. Ambulates with the use of a cane Psychiatric: Appropriate mood and affect. Good judgment and insight. Vital Signs: Last Vital Signs Pulse 67 05/24/25 13:53 Resp 16 05/24/25 13:53 BP 136/60 05/24/25 13:53 Pulse Ox 97 05/24/25 13:53 Oxygen Delivery Method Room Air 05/24/25 13:53 BMI result Body Mass Index 30.3 Assessment & Plan Assessment & Plan (1) Osteoarthritis of left shoulder: Code(s): M19.012 - Primary osteoarthritis, left shoulder Category: Medical Plan: Next time patient will be seen on her regular pill count. Plan Greater trochanteric bursa steroid injection on the right. Informed consent was thoroughly explained to the patient. See as above. The patient was positioned left lateral decubitus with her right trochanteric area exposed. Most painful area was palpated. It was marked on the skin. The area was prepped with ChloraPrep and and sterilely obtained mixture of ropivacaine 0.5% mixed with Kenalog 40 mg total tell him mL was injected in most painful area in fan-like fashion. The needle was removed Band-Aid was applied. The patient tolerated the procedure well. Orders: Referrals Orthopedics Referral M19.012 - Primary osteoarthritis, left shoulder Coding Level of Care Code Est Pt Level 3 (55072) Procedure Only Diagnoses Osteoarthritis of left shoulder M19.012
--- OUTSIDE RECORDS SUMMARY | 2025-05-24 16:54 | XMS_ITS | Patient Health Record ---
Author Organization [facility] Address [address] [place] [address] Care Team Providers Care Seasonal Package Handler Name Role Phone Coco KAUFFMAN, Jayesh Primary Care Provider Job Barone Unavailable [phone] Allergies Allergen (clinical drug ingredient) Drug/Non Drug [...] Treatment Pending Test Test Name Order Date [id number] Plate 07/04/2015 [id number] I&D ABSCESS- SIMPLE,SINGLE 016 [id number] I&D ABSCESS- SIMPLE,SINGLE 015 45931 I&D ABSCESS- SIMPLE,SINGLE 015 Insurance Providers Payer Name Payer Address Payer Phone Subscriber Number Group Number Insured Name Patient Relationship to Insured Coverage Start Date Coverage End Date Joey [id number] [place] [phone] [id number] Annmarie Randhawa Self - patient is the insured Medical (General) History Medical History History ICD Code osteoarthritis asthma Back,Hip,and Knee pain Hiatal hernia Hypertension Reflux Sciatica Thyroid disorder Measles Chicken pox Cholesterol Surgical History Surgery Date(Month/Year) cataract surgery 01/2012 hysterectomy 03/2000 Hospitalization History Reason Date(Month/Year) [facility]- prolapse 12/26/14
--- OUTSIDE RECORDS SUMMARY | 2025-05-24 16:55 | XMS_ITS | Clinical Summary ---
Author Organization [facility] Address [address] [facility] [facility] [address] [place] [phone] Phone Care Team Providers Care Chromosomal Disorders Counselor Name Role Phone Jayesh Sepulveda MD Primary [...] Description 07/05/2025 1:10 PM EST Office Visit [facility] [address] [facility] 12th [place] [address] Lolly Siddiqui MD [address] [place] [phone] [email or web address] Health Maintenance Due Date Last Done [...] topic Medical Devices Not on file [facility] POS EPO [facility] E[facility] POS EPO [facility] POS EPO [facility] POS EPO [facility] POS EPO Care Teams Chromosomal Disorders Counselor Relationship Specialty Start Date End Date Jayesh Sepulveda MD [address] [place] [phone] PCP - General Internal Medicine 11/10/21 Additional Source Comments The information contained in this document represents components of the legal health record. It is not the complete legal health record.[facility]
== END 2025-05-24 14:03 | disposition home or self-care (01) ==
PROVIDERS: PCP Internal Medicine; Visit Provider Anesthesiology
DX: M70.61 Trochanteric bursitis, right hip (principal); M19.012 Primary osteoarthritis, left shoulder
CPT/HCPCS: 20610; 99213

== ENCOUNTER → 2025-05-24 13:22 | Outpatient (BNVA) | payer OTHER, SELFPAY | PROVIDERS: PCP Internal Medicine; Visit Provider Anesthesiology | DX: M25.551 Pain in right hip (principal); G89.29 Other chronic pain | CPT/HCPCS: 20610; J2795; J3301 ==

== ENCOUNTER 2025-05-29 10:43 | Outpatient (AMB) | payer OTHER, SELFPAY ==
--- OUTSIDE RECORDS SUMMARY | 2021-07-14 01:00 | XMS_ITS | Encounter Summary ---
Author Organization [facility] Address [address] [place] [address] Phone Care Team Providers Care Silk Screen Repairer Name Role Phone Unavailable Primary Care Provider Unavailabl e Encounter Details Date Type Department Care Team ([facility] Contact Info) Description 07/14/2021 Hospital Encounter [facility] OUT[facility] [address] [place] [phone] Zeus Sales MD [address] [place] [phone] [email or web address] Social History Tobacco Use Types [...] Description 07/05/2025 1:10 PM EST Office Visit [facility] [address] [facility] 12th [place] [address] Lolly Siddiqui MD [address] [place] [address] [email or web address] documented as of this encounter Procedures Procedure [...] It is not the complete legal health record.[facility]
--- OUTSIDE RECORDS SUMMARY | 2023-04-24 | XMS_ITS | Encounter Summary ---
Author Organization [facility] Address [address] [place] [phone] Phone Care Team Providers Care Sales And Marketing Engineer Name Role Phone Jayesh Sepulveda MD Primary Care Provider + Encounter Details Date Type Department Care Team (Late st Contact Info) Description 04/24/2023 Hospital Encounter [facility] [address] [place] [address] Zeus Sales MD [address] [place] [phone] [email or web address] Social History Tobacco Use Types Packs/Day Years [...] Description 07/05/2025 1:10 PM EST Office Visit [facility] [address] [facility] 12th [place] [address] Lolly Siddiqui MD [address] [place] [address] [email or web address] documented as of this encounter Procedures Procedure [...] on filedocumented in this encounter Care Teams Sales And Marketing Engineer Relationship Specialty Start Date End Date Jayesh Sepulveda MD [address] [place] [phone] PCP - General Internal Medicine 11/10/21 documented as of this encounter Additional Source Comments The information contained in this document represents components of the legal health record. It is not the complete legal health record.[facility]
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
[2025-05-29 11:23] VITALS: BP 138/69; PULSE 66; RESP 14; TEMP 36.9; O2SAT 99; BMI 29.6
--- OUTSIDE RECORDS SUMMARY | 2025-05-29 13:33 | XMS_ITS | Patient Health Record ---
Author Organization [facility] Address [address] [place] [address] Care Team Providers Care Licensed Sales Assistant Name Role Phone Coco KAUFFMAN, Jayesh Primary Care Provider Job Barone Unavailable [phone] Allergies Allergen (clinical drug ingredient) Drug/Non Drug [...] Treatment Pending Test Test Name Order Date [id number] Plate 07/04/2015 [id number] I&D ABSCESS- SIMPLE,SINGLE 016 52626 I&D ABSCESS- SIMPLE,SINGLE 015 [id number] I&D ABSCESS- SIMPLE,SINGLE 015 Insurance Providers Payer Name Payer Address Payer Phone Subscriber Number Group Number Insured Name Patient Relationship to Insured Coverage Start Date Coverage End Date Joey [address] [place] [phone] [id number] Annmarie Randhawa Self - patient is the insured Medical (General) History Medical History History ICD Code osteoarthritis asthma Back,Hip,and Knee pain Hiatal hernia Hypertension Reflux Sciatica Thyroid disorder Measles Chicken pox Cholesterol Surgical History Surgery Date(Month/Year) cataract surgery 01/2012 hysterectomy 03/2000 Hospitalization History Reason Date(Month/Year) [facility]- prolapse 12/26/14
--- OUTSIDE RECORDS SUMMARY | 2025-05-29 13:34 | XMS_ITS | Clinical Summary ---
Author Organization [facility] Address [address] [facility] [address] [place] [phone] Phone Care Team Providers Care Mower Mechanic Name Role Phone Jayesh Sepulveda MD Primary [...] Description 07/05/2025 1:10 PM EST Office Visit [facility] [address] [facility] 12th [place] [address] Lolly Siddiqui MD [address] [place] [phone] [email or web address] Health Maintenance Due Date Last Done [...] topic Medical Devices Not on file [facility] E[facility] E[facility] EPO Care Teams Mower Mechanic Relationship Specialty Start Date End Date Jayesh Sepulveda MD [address] [place] [phone] PCP - General Internal Medicine 11/10/21 Additional Source Comments The information contained in this document represents components of the legal health record. It is not the complete legal health record.[facility]
== END 2025-05-29 12:14 | disposition home or self-care (01) ==
LOC: HO.HMCSH 10:43
PROVIDERS: PCP Internal Medicine; Visit Provider Internal Medicine
DX: I10 Essential (primary) hypertension (principal); Z23 Encounter for immunization

== ENCOUNTER → 2025-05-29 10:43 | Outpatient (BNVA) | payer OTHER, SELFPAY | PROVIDERS: PCP Internal Medicine; Visit Provider Internal Medicine | DX: I10 Essential (primary) hypertension (principal); G20.A1 Parkinson's disease without dyskinesia, without mention of fluctuations; Z28.89 Immunization not carried out for other reason | CPT/HCPCS: 90471; 96127 ==

== ENCOUNTER 2025-06-04 15:17 | Outpatient (AMB) | payer OTHER, SELFPAY ==
--- OUTSIDE RECORDS SUMMARY | 2021-07-14 | XMS_ITS | Encounter Summary ---
Author Organization [facility] Address [address] [place] [address] Phone Care Team Providers Care Pony Cylinder Press Operator Name Role Phone Unavailable Primary Care Provider Unavailabl e Encounter Details Date Type Department Care Team ([facility] Contact Info) Description 07/14/2021 Hospital Encounter [facility] [address] [place] [phone] Zeus Sales MD [address] [place] [phone] [email or web address] Social History Tobacco Use Types Packs/Day Years [...] Description 07/05/2025 1:10 PM EST Office [facility] [address] [facility] 12th [place] [address] Lolly Siddiqui MD [address] [place] [address] [email or web address] documented as of this encounter Procedures Procedure [...] It is not the complete legal health record.[facility]
--- OUTSIDE RECORDS SUMMARY | 2023-04-23 23:00 | XMS_ITS | Encounter Summary ---
Author Organization [facility] Address [address] [place] [address] Phone Care Team Providers Care Wash Rack Operator Name Role Phone Jayesh Sepulveda MD Primary Care Provider + Encounter Details Date Type Department Care Team (Late st Contact Info) Description 04/24/2023 Hospital Encounter [facility] [address] [place] [address] Zeus Sales MD [address] [place] [phone] Jessa@[email or web address] Social History Tobacco Use Types Packs/Day [...] Description 07/05/2025 1:10 PM EST Office Visit [facility] [address] [facility] 12th [place] [address] Lolly Siddiqui MD [address] [place] [address] [email or web address] documented as of this encounter Procedures [...] on filedocumented in this encounter Care Teams Wash Rack Operator Relationship Specialty Start Date End Date Jayesh Sepulveda MD [address] [place] [phone] PCP - General Internal Medicine 11/10/21 documented as of this encounter Additional Source Comments The information contained in this document represents components of the legal health record. It is not the complete legal health record.[facility]
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
[2025-06-04 15:16] VITALS: BP 120/60; PULSE 70; O2SAT 97; BMI 30.7
--- OUTSIDE RECORDS SUMMARY | 2025-06-04 16:34 | XMS_ITS | Clinical Summary ---
Author Organization [facility] Address [address] [facility] [address] [place] [address] Phone Care Team Providers Care Family Preservation Officer Name Role Phone Jayesh Sepulveda MD Primary [...] Hospital [address] [facility] 12th [place] [address] Lolly Siddiqui MD [address] [place] [phone] [email or web address] Health Maintenance Due Date Last Done Comments [...] topic Medical Devices Not on file Insurance [facility] EPO [facility] EPO [facility] POS EPO [facility] POS EPO [facility] POS EPO Care Teams Family Preservation Officer Relationship Specialty Start Date End Date Jayesh Sepulveda MD [address] [place] [phone] PCP - General Internal Medicine 11/10/21 Additional Source Comments The information contained in this document represents components of the legal health record. It is not the complete legal health record.[facility]
--- OUTSIDE RECORDS SUMMARY | 2025-06-04 16:34 | XMS_ITS | Patient Health Record ---
Author Organization [facility] Address [address] [place] [address] Care Team Providers Care Customer Pricing Manager Name Role Phone Coco KAUFFMAN, Jayesh Primary Care Provider Job Barone Unavailable [phone] Allergies Allergen (clinical drug ingredient) Drug/Non Drug [...] Treatment Pending Test Test Name Order Date [id number] Plate 07/04/2015 [id number] I&D ABSCESS- SIMPLE,SINGLE 016 00573 I&D ABSCESS- SIMPLE,SINGLE 015 96361 I&D ABSCESS- SIMPLE,SINGLE 015 Insurance Providers Payer Name Payer Address Payer Phone Subscriber Number Group Number Insured Name Patient Relationship to Insured Coverage Start Date Coverage End Date Joey [address] [place] [phone] [id number] Annmarie Randhawa Self - patient is the insured Medical (General) History Medical History History ICD Code osteoarthritis asthma Back,Hip,and Knee pain Hiatal hernia Hypertension Reflux Sciatica Thyroid disorder Measles Chicken pox Cholesterol Surgical History Surgery Date(Month/Year) cataract surgery 01/2012 hysterectomy 03/2000 Hospitalization History Reason Date(Month/Year) [facility]- prolapse 12/26/14
== END 2025-06-04 16:08 | disposition home or self-care (01) ==
LOC: HO.HSMS 15:18
PROVIDERS: PCP Internal Medicine; Visit Provider Nurse Practitioner Family
DX: R25.1 Tremor, unspecified (principal); M25.50 Pain in unspecified joint; E55.9 Vitamin D deficiency, unspecified; G25.81 Restless legs syndrome; G47.9 Sleep disorder, unspecified
CPT/HCPCS: 99214

== ENCOUNTER 2025-06-08 07:58 | Outpatient (REF) | payer OTHER, SELFPAY ==
--- OUTSIDE RECORDS SUMMARY | 2021-07-14 | XMS_ITS | Encounter Summary ---
Author Organization [facility] Address [address] [place] [address] Phone Care Team Providers Care Intelligence Applications Name Role Phone Unavailable Primary Care Provider Unavailabl e Encounter Details Date Type Department Care Team ([facility] Contact Info) Description 07/14/2021 Hospital Encounter [facility] OUT[facility] [address] [place] [phone] Zeus Sales MD [address] [place] [phone] [email or web address] Social History Tobacco Use Types Packs/Day Years [...] Description 07/05/2025 1:10 PM EST Office Visit [facility] [address] [facility] 12th [place] [address] Lolly Siddiqui MD [address] [place] [address] [email or web address] documented as of this encounter Procedures Procedure [...] It is not the complete legal health record.[facility]
--- OUTSIDE RECORDS SUMMARY | 2023-04-23 23:00 | XMS_ITS | Encounter Summary ---
Author Organization [facility] Address [address] [place] [address] Phone Care Team Providers Care Validation Software Facilitator Name Role Phone Jayesh Sepulveda MD Primary Care Provider + Encounter Details Date Type Department Care Team (Late st Contact Info) Description 04/24/2023 Hospital Encounter [facility] [address] [place] [address] Zeus Sales MD [address] [place] [phone] [email or web address] Social History Tobacco Use Types Packs/Day [...] Description 07/05/2025 1:10 PM EST Office Visit [facility] [address] [facility] 12th [place] [address] Lolly Siddiqui MD [address] [place] [address] [email or web address] documented as of this encounter Procedures [...] on filedocumented in this encounter Care Teams Validation Software Facilitator Relationship Specialty Start Date End Date Jayesh Sepulveda MD [address] [place] [phone] PCP - General Internal Medicine 11/10/21 documented as of this encounter Additional Source Comments The information contained in this document represents components of the legal health record. It is not the complete legal health record.[facility]
--- OUTSIDE RECORDS SUMMARY | 2025-06-08 08:03 | XMS_ITS | Clinical Summary ---
Author Organization [facility] Address [address] [facility] [address] [place] [address] Phone Care Team Providers Care Snow Removal Supervisor Name Role Phone Jayesh Sepulveda MD Primary [...] Description 07/05/2025 1:10 PM EST Office Visit [facility] [address] [facility] 12th [place] [address] Lolly Siddiqui MD [address] [place] [phone] [email or web address] Health Maintenance Due Date Last Done [...] topic Medical Devices Not on file [facility] E[facility] POS [facility]PO [facility] POS EPO [facility] POS EPO [facility] POS EPO Care Teams Snow Removal Supervisor Relationship Specialty Start Date End Date Jayesh Sepulveda MD [address] [place] [id number] PCP - General Internal Medicine 11/10/21 Additional Source Comments The information contained in this document represents components of the legal health record. It is not the complete legal health record.[facility]
--- OUTSIDE RECORDS SUMMARY | 2025-06-08 08:03 | XMS_ITS | Patient Health Record ---
Author Organization [facility] Address [address] [place] [address] Care Team Providers Care Customer Strategy Manager Name Role Phone Coco KAUFFMAN, Jayesh Primary Care Provider Job Barone Unavailable [phone] Allergies Allergen (clinical drug ingredient) Drug/Non Drug [...] Treatment Pending Test Test Name Order Date [id number] Plate 07/04/2015 [id number] I&D ABSCESS- SIMPLE,SINGLE 016 15220 I&D ABSCESS- SIMPLE,SINGLE 015 [id number] I&D ABSCESS- SIMPLE,SINGLE 015 Insurance Providers Payer Name Payer Address Payer Phone Subscriber Number Group Number Insured Name Patient Relationship to Insured Coverage Start Date Coverage End Date Joey [address] [place] [phone] [id number] Annmarie Randhawa Self - patient is the insured Medical (General) History Medical History History ICD Code osteoarthritis asthma Back,Hip,and Knee pain Hiatal hernia Hypertension Reflux Sciatica Thyroid disorder Measles Chicken pox Cholesterol Surgical History Surgery Date(Month/Year) cataract surgery 01/2012 hysterectomy 03/2000 Hospitalization History Reason Date(Month/Year) [facility]- prolapse 12/26/14
[2025-06-08 11:36] LABS: Appearance Urine Clear; Glucose Urine UA Negative (Negative); PH 6.0 (5.0-9.0); Specific Gravity - Urine 1.020 (1.005-1.025); UMIC TRIGGER UA YES
[2025-06-08 11:43] LABS: MANUAL DIFF FLAG NO
[2025-06-08 11:56] LABS: Hematocrit 45.7 % (37.0-47.0); Hemoglobin 15.2 g/dl (12.0-16.0); Imm Gran Abs Auto 0.02 X10*3/uL (0.00-0.03); Imm Gran Pct Auto 0.3 % (0.0-0.4); Lymphocytes Absolute Auto 2.0 X10*3/uL (1.2-4.9); Mean Corpuscular HGB Conc 33.3 g/dl (31.0-35.0); Mean Corpuscular Hemoglobin 31.5 pg (27.0-33.0); Mean Corpuscular Volume 94.6 fL (80.0-98.0); NRBC Abs Auto 0.000 X10*3/uL (0.0-0.012); NRBC Pct Auto 0.0 /100WBC (0.0-0.2); Platelet Count 250 X10*3/uL (160-400); Red Blood Count 4.83 X10*6/uL (4.20-5.50); White Blood Count 6.0 X10*3/uL (4.8-10.8)
[2025-06-08 12:14] LABS: Alanine Aminotransferase 26 U/L (0-31); Albumin Level 4.7 g/dL (3.5-5.0); Alkaline Phosphatase 80 U/L (39-117); Anion Gap 13 (12-20); Aspartate Amino Transferase 27 U/L (5-31); Blood Urea Nitrogen 26 mg/dL (9-16); Calcium 10.4 mg/dL (8.4-10.2); Carbon Dioxide 24 mmol/L (22-29); Chloride 108 mmol/L (96-108); Cholesterol 162 mg/dL (<200); Estimated Glomerular Filt Rate > 60; HDL Cholesterol 54 mg/dL (>40); Iron 114 mcg/dL (30-160); Percent Iron Saturation 33 % (15-50); Potassium 3.6 mmol/L (3.3-5.1); Sodium 141 mmol/L (135-145); Total Iron Binding Capacity 344 mcg/dL (228-428); Total Protein 7.1 g/dL (6.5-8.0); Triglycerides 199 mg/dL (<150); Unsaturated Iron Binding 230 ug/dL
[2025-06-08 12:17] LABS: Ferritin 49 ng/mL (10-250); Thyroid Stimulating Hormone 0.94 uIU/mL (0.32-4.0)
[2025-06-08 12:38] LABS: Folate 13.7 ng/mL (> or = 4.0); Vitamin B12 944 pg/mL (200-900)
[2025-06-12 16:03] LABS: Anti Nuclear Antibody Screen NEGATIVE (NEGATIVE)
[2025-06-12 17:47] LABS: Vitamin D 25-OH, D2 <4 ng/mL; Vitamin D 25-OH, D3 38 ng/mL; Vitamin D 25-OH, Total 38 ng/mL (30-100)
== END 2025-06-08 07:59 | disposition home or self-care (01) ==
LOC: HO.WFDLDS 07:58
PROVIDERS: Referring Provider Internal Medicine; Visit Provider Nurse Practitioner Family
DX: Z13.1 Encounter for screening for diabetes mellitus (principal); I10 Essential (primary) hypertension; E78.5 Hyperlipidemia, unspecified; R55 Syncope and collapse; G25.81 Restless legs syndrome; M25.50 Pain in unspecified joint; E55.9 Vitamin D deficiency, unspecified
CPT/HCPCS: 36415; 80053; 80061; 81001; 82248; 82306; 82607; 82728; 82746; 83036; 83540; 84443; 84446; 85025; 85652; 86038; 86140; 86431

== ENCOUNTER 2025-06-15 13:05 | Outpatient (AMB) | payer OTHER, SELFPAY ==
--- OUTSIDE RECORDS SUMMARY | 2021-07-14 | XMS_ITS | Encounter Summary ---
Author Organization [facility] Address [address] [place] [address] Phone Care Team Providers Care Photocomposing Machine Operator Name Role Phone Unavailable Primary Care Provider Unavailabl e Encounter Details Date Type Department Care Team ([facility] Contact Info) Description 07/14/2021 Hospital Encounter [facility] [address] [place] [phone] Zeus Sales MD [address] [place] [phone] [email or web address] Social History Tobacco Use Types Packs/Day Years [...] as of this encounter Plan of Treatment Upcoming Encounters Date Type Department Care Team (Late Contact Info) Description 07/05/2025 1:10 PM EST Office Visit [facility] [address] [facility] 12th [place] [address] Lolly Siddiqui MD [address] [place] [address] [email or web address] documented as of this encounter Procedures Procedure [...] It is not the complete legal health record.[facility]
--- OUTSIDE RECORDS SUMMARY | 2023-04-23 23:00 | XMS_ITS | Encounter Summary ---
Author Organization [facility] Address [address] [place] [address] Phone Care Team Providers Care Awning Maker And Installer Name Role Phone Jayesh Sepulveda MD Primary Care Provider + Encounter Details Date Type Department Care Team (Late st Contact Info) Description 04/24/2023 Hospital Encounter [facility] [address] [place] [address] Zeus Sales MD [address] [place] [phone] [email or web address] Social History Tobacco Use Types Packs/Day Years [...] Encounters Date Type Department Care Team (Late st Contact Info) Description 07/05/2025 1:10 PM EST Office Visit [facility] [address] [facility] 12th [place] [address] Lolly Siddiqui MD [address] [place] [address] [email or web address] documented as of this encounter Procedures Procedure Name Priority Date/Time Associated Diagnosis Comments CT HEAD OUTSIDE (NO INTERPRETATION) Routine 04/24/2023 12:00 AM EDT documented in this encounter Results * CT Head Outside (No Interpretation) (04/24/2023 12:00 AM EDT) Narrative [facility] INTERFACES - 07/02/2023 3:31 PM EST This study is for PACS storage only and not for interpretation. us Zeus Sales MD IMG OUTSIDE IMAGING W/OUT INTE RPRETATION Final Result [facility] INTER[facility]AC[facility] documented in this encounter Visit Diagnoses Not on filedocumented in this encounter Care Teams Awning Maker And Installer Relationship Specialty Start Date End Date Jayesh Sepulveda MD [address] [place] [phone] PCP - General Internal Medicine 11/10/21 documented as of this encounter Additional Source Comments The information contained in this document represents components of the legal health record. It is not the complete legal health record.[facility]
--- NOTE | 2025-06-15 13:11 | MHC.OFFVIS ---
Vital Signs 06/15/25 13:19 Height 4 ft 11 in Weight 146 lb BMI 29.5 BP 131/76 Blood Pressure Location Rt brachial Position Sitting Respiration 16 Pulse 78 Pulse Source Pulse Oximeter Pulse Oximetry (%) 98 Oxygen Delivery Method Room Air Intake Visit Reasons: PILL COUNT Intake Note: Patient here for a pill count of Hydrocodone per directions patient should have 12 pills. Patient presented 15 pills. last took 9:15am Brand Activation Manager Required: No Accompanied by: Self / Same As Patient Allergies Sulfa (Sulfonamide Antibiotics) Allergy (Unknown, Verified 06/15/25 13:12) vomiting sulfamethoxazole (From Bactrim) Allergy (Unknown, Verified 06/15/25 13:12) Unknown trimethoprim (From Bactrim) Allergy (Unknown, Verified 06/15/25 13:12) Unknown Iodinated Contrast Media Adverse Reaction (Verified 06/15/25 13:12) Unknown HPI Comments Details: The patient is a 79-year-old female presenting with chronic pain and chronic opioid medication management. She reports that an injection initially relieved her pain for less than one day, but the pain worsened after physical activity, such as cleaning. The patient has a history of Parkinson's disease, diagnosed two years ago, but her primary care physician recently questioned this diagnosis. She was previously on carbidopa-levodopa but discontinued it due to dizziness and lack of improvement in symptoms. - Onset: Pain worsened after physical activity post-injection. - Quality: Severe pain, impacting daily activities. - Location: Right shoulder and lower back. - Exacerbating factors: Physical activity such as cleaning. - Relieving factors: Initial relief from injection. - Affect: Pain significantly impacts mood and enjoyment of life. - Analgesia: Current medications include atorvastatin and losartan; duloxetine is being considered for pain management. - Adverse Effects: Dizziness from previous carbidopa-levodopa use. - Activities of Daily Living: Pain limits ability to perform household tasks and affects social interactions. - Aberrant Drug Related Behaviors: No evidence of medication misuse; patient is cautious with medication use. [facility] Medical History Murmur HLD (hyperlipidemia) HTN (hypertension) Nonobstructive atherosclerosis of coronary artery (~09/2017) Surgical History History of right hip replacement (~11/2019) Hx of pelvic surgery Hx of eye surgery Hx of hysterectomy Hx of cardiac cath Family History Father CVD (cardiovascular disease) Mother No problems noted. Family/Other CVD (cardiovascular disease) Afib Brother Tumor of tongue Social History (Updated 05/29/25 @ 11:29 by MAGNOLIA Hercules) Household Members: Spouse Housing: House Alcohol intake: current Alcohol intake frequency: does not drink Patient Tobacco Use Status: Former Tobacco user service: No Current occupational status: retired Cognitive needs: Yes (cane) Hearing needs: No Vision needs: Yes (rx glasses) Review of Systems Narrative - Musculoskeletal: Reports severe pain in right shoulder and lower back, limited arm movement. - Neurological: Reports hand tremors and stiffness, denies recent falls. - Psychological: Reports feeling down and lack of enjoyment in activities. Physical Exam Exam Exam: General: awake, alert, oriented. Answers questions appropriately. Fully engaged in examination. Skin: warm, dry, intact HEENT: Normocephalic. Hearing intact. Cardiac: External chest normal in appearance. Respiratory: No cough, audible wheezing or stridor. Abdomen: without gross distension. MS: No obvious swelling or deformities. Able to transition from sit to stand unassisted. Neurological: Oriented to person, place, time and situation. Thought process intact. Ambulates with the use of a cane Psychiatric: Appropriate mood and affect. Good judgment and insight. Vital Signs: Last Vital Signs Pulse 78 06/15/25 13:19 Resp 16 06/15/25 13:19 BP 131/76 06/15/25 13:19 Pulse Ox 98 06/15/25 13:19 Oxygen Delivery Method Room Air 06/15/25 13:19 BMI result Body Mass Index 29.5 Assessment & Plan Assessment & Plan (1) Chronic pain syndrome: Code(s): G89.4 - Chronic pain syndrome Category: Medical (2) Chronic, continuous use of opioids: Code(s): F11.90 - Opioid use, unspecified, uncomplicated Category: Medical (3) Polyarthralgia: Code(s): M25.50 - Pain in unspecified joint Category: Medical (4) Greater trochanteric bursitis: Code(s): M70.60 - Trochanteric bursitis, unspecified hip Category: Medical Plan Masspat was reviewed and without concerns. No obvious signs of diversion, abuse or misuse of the opioid medications. Will send in prescription for hydrocodone/acetaminophen 10-325 mg BID with an advanced date Add duloxetine for pain management, starting at a low dose to minimize potential side effects. The patient is advised to follow up with orthopedics for further evaluation of her shoulder pain, although she has not yet scheduled an appointment due to the burden of multiple medical appointments. Patient was informed and verbally consented to the use of an ambient scribe for clinic note documentation during this visit. Medications: New duloxetine 20 mg PO BID 60 caps 3RF Refilled hydrocodone-acetaminophen 10-325 mg Partial Fill upon patient request. 1 tab PO BID PRN 60 tabs 0RF pain Patient Instructions: - Start duloxetine as prescribed, beginning with a low dose. - Schedule and attend an appointment with orthopedics for shoulder evaluation. - Continue daily walking for exercise. Coding Level of Care Code Est Pt Level 3 (06459) Complex EM visit Add On G2211 Diagnoses Chronic pain syndrome G89.4 Chronic, continuous use of opioids F11.90 Polyarthralgia M25.50 Greater trochanteric bursitis M70.60
[2025-06-15 13:19] VITALS: BP 131/76; PULSE 78; RESP 16; O2SAT 98; BMI 29.5
--- OUTSIDE RECORDS SUMMARY | 2025-06-15 19:18 | XMS_ITS | Clinical Summary ---
Author Organization [facility] Address [address] [facility] [address] [place] [address] Phone Care Team Providers Care Russian Teacher Name Role Phone Jayesh Sepulveda MD Primary [...] 07/05/2025 1:10 PM EST Office Visit [facility] [address]th [place] [address] Lolly Siddiqui MD [address] [place] [phone] [email or web address] Health Maintenance Due Date Last Done Comments Adult Td,Tdap Booster 1946 BLOOD PRESSURE 1946 CREATININE LEVEL 1946 LIPID PANEL 1946 POTASSIUM LEVEL 1946 TSH LEVEL 1946 DEPRESSION SCREENING 1958 SMOKING Hx and SMOKELESS TOBACCO SCREENING 12/30/1959 HEPATITIS C SCREENING 1964 OSTEOPOROSIS SCREENING INITIAL (ONE-TIME) 12/30/2011 PNEUMOCOCCAL VACCINES (50+ years) (2 of 2 - PPSV23, PCV20, or PCV21) 02/03/2015 12/09/2014 ZOSTER VACCINES (3 of 3) 07/01/2018 05/06/2018, 06/09/2013 RSV VACCINE (1 - 1-dose 75+ series) 2021 INFLUENZA VACCINE (#1) 2025 , 05/28/2020, 07/17/2019, Additional history exists COVID-19 VACCINE ( season) 2025 05/17/2021, 11/14/2020, 10/24/2020 HEPATITIS A VACCINES Aged Out 04/20/2019, 02/22/20 19 No longer eligible based on patient's age to complete this topic HIB VACCINES Aged Out No longer eligi ble based on patient's age to complete this topic IPV VACCINES Aged Out No longer eligi ble based on patient's age to complete this topic MENINGOCOCCAL VACCINES (ACWY) Aged Out No longer eligible based on patient's age to complete this topic MENINGOCOCCAL VACCINES (B) Aged Out N o longer eligible based on patient's age to complete this topic Medical Devices Not on file Insurance [facility] POS EPO [facility] [place] [id number] [facility] POS EPO Care Teams Russian Teacher Relationship Specialty Start Date End Date Jayesh Sepulveda MD [address] [place] [address] [place] [address] PCP - General Internal Medicine 11/10/21 Additional Source Comments The information contained in this document represents components of the legal health record. It is not the complete legal health record.[facility]
--- OUTSIDE RECORDS SUMMARY | 2025-06-15 19:18 | XMS_ITS | Patient Health Record ---
Author Organization [facility] Address [address] [place] [address] Care Team Providers Care Auto Vinyl Top Installer Name Role Phone Coco KAUFFMAN, Jayesh Primary Care Provider Job Barone Unavailable [phone] Allergies Allergen (clinical drug ingredient) Drug/Non Drug [...] Treatment Pending Test Test Name Order Date [id number] Plate 07/04/2015 [id number] I&D ABSCESS- SIMPLE,SINGLE 016 37114 I&D ABSCESS- SIMPLE,SINGLE 015 62333 I&D ABSCESS- SIMPLE,SINGLE 015 Insurance Providers Payer Name Payer Address Payer Phone Subscriber Number Group Number Insured Name Patient Relationship to Insured Coverage Start Date Coverage End Date Joey [address] [place] [phone] [id number] Annmarie Randhawa Self - patient is the insured Medical (General) History Medical History History ICD Code osteoarthritis asthma Back,Hip,and Knee pain Hiatal hernia Hypertension Reflux Sciatica Thyroid disorder Measles Chicken pox Cholesterol Surgical History Surgery Date(Month/Year) cataract surgery 01/2012 hysterectomy 03/2000 Hospitalization History Reason Date(Month/Year) [facility]- prolapse 12/26/14
== END 2025-06-15 13:57 | disposition home or self-care (01) ==
LOC: HO.PMC 13:06
PROVIDERS: PCP Internal Medicine; Visit Provider Registered Nurse Emergency
DX: G89.4 Chronic pain syndrome (principal); Z79.891 Long term (current) use of opiate analgesic; M25.50 Pain in unspecified joint; M70.60 Trochanteric bursitis, unspecified hip
CPT/HCPCS: 99213; G2211

== ENCOUNTER 2025-07-13 13:17 | Outpatient (AMB) | payer OTHER, SELFPAY ==
[2025-07-13 13:20] VITALS: BP 141/70; PULSE 69; RESP 16; O2SAT 97; BMI 29.5
--- NOTE | 2025-07-13 13:20 | MHC.OFFVIS ---
Vital Signs 07/13/25 13:20 Height 4 ft 11 in Weight 146 lb BMI 29.5 BP 141/70 H Blood Pressure Location Rt brachial Position Sitting Respiration 16 Pulse 69 Pulse Source Pulse Oximeter Pulse Oximetry (%) 97 Oxygen Delivery Method Room Air Intake Visit Reasons: PILL COUNT Intake Note: Patient here for a pill count of hydrocodone-acetamino per directions patient should have 20 pills patient presented 19 pills. Last took 8am Channel Marketing Coordinator Required: No Accompanied by: Self / Same As Patient Allergies Sulfa (Sulfonamide Antibiotics) Allergy (Unknown, Verified 07/13/25 13:33) vomiting sulfamethoxazole (From Bactrim) Allergy (Unknown, Verified 07/13/25 13:33) Unknown trimethoprim (From Bactrim) Allergy (Unknown, Verified 07/13/25 13:33) Unknown Iodinated Contrast Media Adverse Reaction (Verified 07/13/25 13:33) Unknown HPI Comments Details: History of Present Illness The patient is a 79 year old female presenting for chronic pain management. She reports being in a lot of pain and questions if her opioid medication dosage can be increased. She feels her current regimen of hydrocodone 10 mg twice daily is no longer effective. Patient is prescribed hydrocodone acetaminophen 10-325mg take 1 tablet twice a day. Patient arrived today with the expectation of having 20 pills, she presented 19 pills which were counted in the presence of two staff members and returned to the patient in the original prescription bottle. This demonstrates responsible attitude toward patient's opioid medications. Last dose of pain medication was taken at 8:00 this morning. Patient denies side effects including somnolence, constipation, itching, dyspnea, rash. Her hydrocodone dose was previously as-needed and has increased over the past few months from 5 mg to 10 mg, and then to a scheduled twice-daily regimen, totaling 20 mg per day. The patient was previously on gabapentin but was taken off it due to dizziness. She was started on duloxetine after her last visit, initially prescribed twice a day, but she reduced it to once daily due to dizziness and nausea. She now takes duloxetine at night to help with sleep. The patient reports having had the flu recently, which caused severe sickness, constant tiredness, and weakness to the point of needing assistance from her to get off the toilet. She notes her overall pain has been worse since having the flu. She reports severe shoulder pain that starts in her neck and radiates down her arm, which wakes her up at night. She has a history of a shoulder replacement and has seen an medical insurance coding specialist in the past. She used to walk for a half-hour daily but has been unable to recently due to poor weather. Pain Description - Location: The patient reports generalized pain, with specific severe pain that starts in the neck and radiates down the arm into the shoulder. - Interference with function: The shoulder pain can awaken her from sleep at night. - Exacerbating factors: Her pain is exacerbated by a recent flu infection. - Relieving factors: The patient reports her hydrocodone is not as effective. Pain Management - Affect: The patient reports feeling lousy and not feeling good at all. - Analgesia: The patient is on hydrocodone 10 mg twice daily. - She reports her pain medication is no longer effective and requests an increase in the dosage. - Adverse Effects: The patient previously stopped gabapentin due to dizziness. - She reduced her duloxetine dose from twice to once a day due to dizziness and nausea. - Activities of Daily Living: Her pain interferes with sleep. - She has been unable to participate in her daily walks. - She has little desire for company due to feeling unwell. - Aberrant Drug Related Behaviors: There are no aberrant drug-related behaviors noted. [facility] Medical History Murmur HLD (hyperlipidemia) HTN (hypertension) Nonobstructive atherosclerosis of coronary artery (~09/2017) Surgical History History of right hip replacement (~11/2019) Hx of pelvic surgery Hx of eye surgery Hx of hysterectomy Hx of cardiac cath Family History Father CVD (cardiovascular disease) Mother No problems noted. Family/Other CVD (cardiovascular disease) Afib Brother Tumor of tongue Social History (Updated 05/29/25 @ 11:29 by MAGNOLIA Hercules) Household Members: Spouse Housing: House Alcohol intake: current Alcohol intake frequency: does not drink Patient Tobacco Use Status: Former Tobacco user service: No Current occupational status: retired Cognitive needs: Yes (cane) Hearing needs: No Vision needs: Yes (rx glasses) Review of Systems Narrative Review of Systems - Constitutional: Reports significant fatigue, weakness, and feeling generally unwell following a recent flu infection. - Musculoskeletal: Reports severe neck and shoulder pain with radiation down the arm. - Neurological: Reports a history of dizziness with gabapentin and duloxetine. - Gastrointestinal: Reports a history of nausea with duloxetine. - Psychiatric: Denies depression but reports feeling lousy and has little interest in socializing. - Sleep: Reports pain waking her from sleep and also falling asleep if she sits down. Physical Exam Exam Exam: Vital Signs: Last Vital Signs Pulse 69 07/13/25 13:20 Resp 16 07/13/25 13:20 BP 141/70 H 07/13/25 13:20 Pulse Ox 97 07/13/25 13:20 Oxygen Delivery Method Room Air 07/13/25 13:20 BMI result Body Mass Index 29.5 Assessment & Plan Assessment & Plan (1) Chronic pain syndrome: Code(s): G89.4 - Chronic pain syndrome Category: Medical (2) Chronic, continuous use of opioids: Code(s): F11.90 - Opioid use, unspecified, uncomplicated Category: Medical (3) Polyarthralgia: Code(s): M25.50 - Pain in unspecified joint Category: Medical Plan Plan The patient's request to increase her hydrocodone dosage was denied at this time. This decision was based on the significant increase in her dosage over the past few months, from an as-needed 5 mg dose to a scheduled 20 mg total daily dose. The patient was advised she can supplement with additional Tylenol if needed, as her current medication is hydrocodone 10 mg/acetaminophen 325 mg. For the severe neck and shoulder pain radiating down her arm, the patient was advised to follow up with Orthopedics. She was encouraged to discuss the possibility of a shoulder injection with the specialist. No changes will be made to her duloxetine regimen. The patient was advised to continue resting and drinking plenty of fluids to aid her recovery from the flu. The patient will follow up in the office in August. Patient was informed and verbally consented to the use of an ambient scribe for clinic note documentation during this visit. Discussion Notes I discussed with the patient her request to increase her hydrocodone dosage for chronic pain. I explained that we would not be increasing the dose at this time, as it has been escalated significantly over the past few months from 5 mg as needed to a total of 20 mg daily. I advised her that she can take additional Tylenol for pain, as her current prescription contains 325 mg of acetaminophen. We reviewed her history with gabapentin and duloxetine, including the side effects of dizziness and nausea that led to discontinuation and dose reduction, respectively. Regarding her severe neck and shoulder pain, I recommended she return to her medical insurance coding specialist for further evaluation and to discuss other treatment options, such as an injection. We also discussed her recent prolonged illness with the flu and the importance of rest and fluids for a full recovery. We will reassess her pain management plan at her next appointment in August. Patient Instructions - Continue taking your hydrocodone 10 mg twice a day as prescribed. - Do not increase the dose. - You may take extra [id number] Tylenol (acetaminophen) for pain if needed. - Schedule an appointment with your medical insurance coding specialist to have your neck and shoulder pain evaluated. - Continue to rest and drink plenty of fluids to help you recover from the flu. - Your next appointment with our office will be in August. Medications: Refilled hydrocodone-acetaminophen 10-325 mg Partial Fill upon patient request. 1 tab PO BID PRN 60 tabs 0RF pain Coding Level of Care Code Est Pt Level 3 (03082) Add On Problem Visit Only Diagnoses Chronic pain syndrome G89.4 Chronic, continuous use of opioids F11.90 Polyarthralgia M25.50
--- OUTSIDE RECORDS SUMMARY | 2025-07-13 18:51 | XMS_ITS | Patient Health Record ---
Author Organization [facility] Address [address] [place] [address] Care Team Providers Care Foaming Machine Operator Name Role Phone Coco KAUFFMAN, Jayesh Primary Care Provider Job Barone Unavailable [phone] Allergies Allergen (clinical drug ingredient) Drug/Non Drug [...] Treatment Pending Test Test Name Order Date [id number] Plate 07/04/2015 [id number] I&D ABSCESS- SIMPLE,SINGLE 016 73774 I&D ABSCESS- SIMPLE,SINGLE 015 [id number] I&D ABSCESS- SIMPLE,SINGLE 015 Insurance Providers Payer Name Payer Address Payer Phone Subscriber Number Group Number Insured Name Patient Relationship to Insured Coverage Start Date Coverage End Date Joey [address] [place] [phone] [id number] Annmarie Randhawa Self - patient is the insured Medical (General) History Medical History History ICD Code osteoarthritis asthma Back,Hip,and Knee pain Hiatal hernia Hypertension Reflux Sciatica Thyroid disorder Measles Chicken pox Cholesterol Surgical History Surgery Date(Month/Year) cataract surgery 01/2012 hysterectomy 03/2000 Hospitalization History Reason Date(Month/Year) [facility]- prolapse 12/26/14
== END 2025-07-13 14:05 | disposition home or self-care (01) ==
LOC: HO.PMC 13:18
PROVIDERS: PCP Internal Medicine; Visit Provider Registered Nurse Emergency
DX: G89.4 Chronic pain syndrome (principal); Z79.891 Long term (current) use of opiate analgesic; M25.50 Pain in unspecified joint
CPT/HCPCS: 99213; G2211

== ENCOUNTER → 2025-07-18 14:46 | Outpatient (BNV) | payer OTHER, SELFPAY | PROVIDERS: PCP Internal Medicine; Visit Provider Internal Medicine Cardiovascular Disease | DX: Z45.018 Encounter for adjustment and management of other part of cardiac pacemaker (principal) | CPT/HCPCS: 93294 ==

== ENCOUNTER 2025-07-19 15:09 | Outpatient (AMB) | payer OTHER, SELFPAY ==
--- OUTSIDE RECORDS SUMMARY | 2021-07-14 | XMS_ITS | Encounter Summary ---
Author Organization [facility] Address [address] [place] [address] Phone Care Team Providers Care Seed Potato Arranger Name Role Phone Unavailable Primary Care Provider Unavailabl e Encounter Details Date Type Department Care Team ([facility] st Contact Info) Description 07/14/2021 Hospital Encounter [facility] [address] [place] [phone] Zeus Sales MD [address] [place] [phone] [email or web address] Social History Tobacco Use Types Packs/Day Years Used Date Smoking Tobacco: Former Cigarettes Smokeless Tobacco: Never Alcohol Use Standard Drinks/Week Comments Yes 0 (1 standard drink = 0.6 oz pur e alcohol) Rare Education Answer Date Recorded Are you interested in more education? Not on agata e 11/27/2022 Are you concerned about learning? Not on file 11/27/2022 No 11/27/2022 No 11/27/2022 Digital Access Answer Date Recorded No 12/27/2022 No 12/27/2022 Reliable internet access at home? Not on file 12/27/2022 Device with a working camera? Not on file Comments Unknown Sex and Gender Information Value Date Recorded Sex Assigned at Female 11/10/2021 2:53 PM EDT Legal Sex Female 5:08 PM EST Gender Identity Female 11/10/2021 2:53 PM EDT Sexual Orientation Straight 11/10/2021 2: 53 PM EDT documented as of this encounter Plan of Treatment Not on file documented as of this encounter Procedures Procedure Name Priority Date/Time Associated Diagnosis Comments MRI BRAIN OUTSIDE (NO INTERPRETATION) Routine 07/14/2021 12:00 AM EST documented in this encounter Results * MRI Brain Outside (No Interpretation) (07/14/2021 12:00 AM EST) Narrative [facility] INTERFACES - 07/02/2023 9:44 AM EST This study is for PACS storage only and not for interpretation. us Zeus Sales MD IMG OUTSIDE IMAGING W/OUT INTE RPRETATION Final Result [facility] INTERFAC[facility] documented in this encounter Visit Diagnoses Not on filedocumented in this encounter Additional Source Comments The information contained in this document represents components of the legal health record. It is not the complete legal health record.[facility]
--- OUTSIDE RECORDS SUMMARY | 2023-04-23 23:00 | XMS_ITS | Encounter Summary ---
Author Organization [facility] Address [address] [place] [address] Phone Care Team Providers Care Associate Professor Of Management Name Role Phone Jayesh Sepulveda MD Primary Care Provider + Encounter Details Date Type Department Care Team (Late st Contact Info) Description 04/24/2023 Hospital Encounter [facility] [address] [place] [address] Zeus Sales MD [address] [place] [phone] [email or web address] Social History Tobacco Use Types Packs/Day [...] on filedocumented in this encounter Care Teams Associate Professor Of Management Relationship Specialty Start Date End Date Jayesh Sepulveda MD [address] [place] [phone] PCP - General Internal Medicine 11/10/21 documented as of this encounter Additional Source Comments The information contained in this document represents components of the legal health record. It is not the complete legal health record.[facility]
[2025-07-19 15:11] VITALS: BP 126/82; PULSE 64; BMI 28.5
--- NOTE | 2025-07-19 15:11 | MHC.OFFVIS ---
Vital Signs 07/19/25 15:11 Height 4 ft 11 in Weight 141 lb 1.533 oz BMI 28.5 BP 126/82 Blood Pressure Location Lt brachial Position Sitting Pulse 64 Intake Visit Reasons: 6 mth f/up w/ pacer ck Intake Note: 6 month follow-up with [facility] check c/o dizziness if bending over and impaired gait Electrician Office Required: No Allergies Sulfa (Sulfonamide Antibiotics) Allergy (Unknown, Verified 07/13/25 13:33) vomiting sulfamethoxazole (From Bactrim) Allergy (Unknown, Verified 07/13/25 13:33) Unknown trimethoprim (From Bactrim) Allergy (Unknown, Verified 07/13/25 13:33) Unknown Iodinated Contrast Media Adverse Reaction (Verified 07/13/25 13:33) Unknown Medication List - Last Reconciled 07/19/25 by Chato Chavez MD acetaminophen (Tylenol) 325 mg PO QID PRN duloxetine 20 mg PO .qhs hydrocodone-acetaminophen 10-325 mg 1 tab PO BID PRN naloxone 4 mg/actuation (Narcan) 4 mg intranasal Q2M HPI Comments Details: Annmarie comes for follow-up. She says Milly's recently very sick and was predominantly not able to function much and was very tired. She then stopped taking her medications. She also says she was started on duloxetine and could not tolerate very well and was very weak and tired. She is currently he is taking statins intermittently. She is also taking aspirin as needed. She has not lightheadedness or syncopal episodes. Denies any prolonged palpitation irregular heartbeat. No exertional chest pain. Mainly complain of tremors and lack of balance. Overall mostly noncardiac complaints. [facility] Medical History Murmur HLD (hyperlipidemia) HTN (hypertension) Nonobstructive atherosclerosis of coronary artery (~09/2017) Surgical History History of right hip replacement (~11/2019) Hx of pelvic surgery Hx of eye surgery Hx of hysterectomy Hx of cardiac cath Family History Father CVD (cardiovascular disease) Mother No problems noted. Family/Other CVD (cardiovascular disease) Afib Brother Tumor of tongue Social History Household Members: Spouse Housing: House Alcohol intake: current Alcohol intake frequency: does not drink Patient Tobacco Use Status: Former Tobacco user service: No Current occupational status: retired Cognitive needs: Yes (cane) Hearing needs: No Vision needs: Yes (rx glasses) Review of Systems Const Denies chills, Denies fatigue, Denies fever(s), Denies frequent falls, Denies weakness, Denies weight gain and Denies weight loss ENT Denies dizziness Card Denies chest pain, Denies leg edema, Denies lightheadedness, Denies palpitations, Denies dyspnea, Denies dyspnea on exertion, Denies orthopnea and Denies other (loss of consciousness) Resp Denies cough, Denies dyspnea and Denies dyspnea on exertion GI Denies hematochezia and Denies change in stool character Musc Denies abnormal gait, Denies muscle weakness, Denies numbness, Denies radiating pain into limb and Denies tingling Neuro Denies abnormal gait, Denies dizziness, Denies frequent falls, Denies numbness, Denies tingling and Denies weakness Endo Denies fatigue and Denies palpitations Physical Exam Vital Signs: Last Vital Signs Pulse 64 07/19/25 15:11 BP 126/82 07/19/25 15:11 BMI result Body Mass Index 28.5 Const Other: Ambulates with cane General: cooperative, healthy appearing, comfortable and no acute distress Orientation/consciousness: patient oriented x3 Neck Neck: Yes normal visual inspection Chest Chest palpation & inspection: other (Pacemaker pocket has slight swelling with the wound healing well) Resp Effort & Inspection: normal respiratory effort Auscultation: clear to auscultation bilaterally, no crackles, no rales, no rhonchi and no wheezes Cardio Jugular venous distension: no JVD Rate: regular rate Rhythm: regular rhythm Heart sounds: S1 normal heart sound present, S2 normal heart sound present, no murmurs and no rubs Neuro General: patient oriented x3 Extrem General: Yes normal to inspection, No no pedal edema and No calf tenderness Psych Appearance: grossly normal Mental Status: mental status grossly normal Speech and movement: Normal speech and movement present Office Procedures Cardiac Device Check Cardiac Device Check Details: Dual-chamber Medtronic pacemaker in place. Programmed in MVP mode with rate response at 60 beats per minute. Atrial pacing 38% of the time. Few episodes of fast ventricular rate noted consistent with either sinus tachycardia or SVT. Atrial ventricular sensing is excellent and reprogrammed to enhance battery life. Atrial ventricular sensing is adequate. Pacing lead impedance is stable. Battery life is at about 13 years 62309-MP Cardiac Device Check, pacemaker dual lead Procedure code (CPT) selection complete EKG Details: EKGs shows normal sinus rhythm with left axis deviation with small Q-waves in high lateral leads that would represent probably asymmetric septal hypertrophy or lateral infarct 65042-Jilidtczwrhylfvto, Complete Assessment & Plan Assessment & Plan (1) Nonobstructive atherosclerosis of coronary artery: Onset Date: ~09/2017 Comment: Prior calcium score over 1000. Cardiac catheterization done 09/22/2017 showing only mild luminal irregularities left main, left circumflex, lad and RCA. Reports of anginal sounding symptoms. Had recent total hip replacement without reported cardiac complications. EKG done 04/11/2020 showing normal sinus rhythm, lateral infarct, age undetermined, unchanged from prior EKG, rate 67. Code(s): I25.10 - Atherosclerotic heart disease of [place] coronary artery without angina pectoris Category: Medical Plan: Patient with nonobstructive coronary artery disease very high calcium score with cardiac catheterization showing luminal irregularities. Advised strongly to be on low-dose aspirin therapy as well as compliant with statin therapy. Will reduce statin to 40 mg daily. Target goal LDL less than 70 mg/dL. No other workup is indicated at this point time as she has no active cardiac symptoms that is suggest myocardial ischemia. (2) Pacemaker: Code(s): Z95.0 - Presence of cardiac pacemaker Category: Medical Plan: Cardiac pacemaker in-situ for syncope and sick sinus syndrome. Pacemaker is functioning well. Will follow remotely every 3 months. Follow up in the clinic in 1 year's time. (3) SVT (supraventricular tachycardia): Code(s): I47.10 - Supraventricular tachycardia, unspecified Category: Medical Plan: Episodes of fast ventricular rate consistent with SVT with minimal symptoms. Avoidance of stimulants was discussed. Stress mitigation strategies were discussed. Will follow up in the clinic in 1 year's time, sooner PRN. Thank you for allowing me to partake in her care Medications: New atorvastatin (Lipitor) 40 mg PO DAILY 30 tabs 5RF Chato Chavez MD aspirin (Ecotrin Low Strength) 81 mg PO DAILY 30 tabs 5RF Chato Chavez MD Changed From duloxetine 20 mg PO BID 60 caps 3RF To duloxetine 20 mg PO .hs Marcy Allison, LICENSED DIRECT ENTRY MIDWIFE, NOZZLE WORKER Coding Level of Care Code Est Pt Level 4 (68061) Diagnoses Nonobstructive atherosclerosis of coronary artery I25.10 Pacemaker Z95.0 SVT (supraventricular tachycardia) I47.10 CPT Codes Cardiac Device Check - Cardiac Device 2: 84345-TM Cardiac Device Check, pacemaker dual lead ([id number]) EKG - CPT: 51542-Vfefwvmtrynawotzj, Complete ([id number])
--- OUTSIDE RECORDS SUMMARY | 2025-07-19 19:11 | XMS_ITS | Clinical Summary ---
Author Organization [facility] Address [address] [facility] [address] [place] [id number] Phone Care Team Providers Care Oral Therapist Name Role Phone Jayesh Sepulveda MD Primary [...] 06/23/2011 1:11 PM EST Plan of Treatment Health Maintenance Due Date Last Done Comments [...] topic Medical Devices Not on file [facility] EPO [facility] POS EPO [facility] POS EPO [facility] POS EPO [facility] POS [facility]PO [facility] POS EPO [employer] O POS EPO Care Teams Oral Therapist Relationship Specialty Start Date End Date Jayesh Sepulveda MD [address] [place] [id number] PCP - General Internal Medicine 11/10/21 Additional Source Comments The information contained in this document represents components of the legal health record. It is not the complete legal health record.[facility]
--- OUTSIDE RECORDS SUMMARY | 2025-07-19 19:11 | XMS_ITS | Patient Health Record ---
Author Organization [facility] Address [address] [place] [address] Care Team Providers Care Net Software Developer Name Role Phone Coco KAUFFMAN, Jayesh Primary Care Provider Job Barone Unavailable [phone] Allergies Allergen (clinical drug ingredient) Drug/Non Drug [...] Treatment Pending Test Test Name Order Date [id number] Plate 07/04/2015 [id number] I&D ABSCESS- SIMPLE,SINGLE 016 93914 I&D ABSCESS- SIMPLE,SINGLE 015 92477 I&D ABSCESS- SIMPLE,SINGLE 015 Insurance Providers Payer Name Payer Address Payer Phone Subscriber Number Group Number Insured Name Patient Relationship to Insured Coverage Start Date Coverage End Date Joey [address] [place] [phone] [id number] Annmarie Randhawa Self - patient is the insured Medical (General) History Medical History History ICD Code osteoarthritis asthma Back,Hip,and Knee pain Hiatal hernia Hypertension Reflux Sciatica Thyroid disorder Measles Chicken pox Cholesterol Surgical History Surgery Date(Month/Year) cataract surgery 01/2012 hysterectomy 03/2000 Hospitalization History Reason Date(Month/Year) [facility]- prolapse 12/26/14
== END 2025-07-19 15:45 | disposition home or self-care (01) ==
LOC: HO.HCS 15:10
PROVIDERS: PCP Internal Medicine; Visit Provider Internal Medicine Cardiovascular Disease
DX: I25.10 Atherosclerotic heart disease of native coronary artery without angina pectoris (principal); Z95.0 Presence of cardiac pacemaker; I47.10 Supraventricular tachycardia, unspecified
CPT/HCPCS: 93010; 93280; 99214

== ENCOUNTER → 2025-07-19 15:09 | Outpatient (BNVA) | payer OTHER, SELFPAY | PROVIDERS: PCP Internal Medicine; Visit Provider Internal Medicine Cardiovascular Disease | DX: I25.10 Atherosclerotic heart disease of native coronary artery without angina pectoris (principal); I47.10 Supraventricular tachycardia, unspecified; I10 Essential (primary) hypertension; Z95.0 Presence of cardiac pacemaker; Z79.899 Other long term (current) drug therapy; Z87.891 Personal history of nicotine dependence | CPT/HCPCS: 93005; 93280 ==